=== PATIENT | female | born 1990 | race Caucasian/White ===

== ENCOUNTER 2018-08-07 11:32 | Outpatient (CLI) | payer BC ==
[2018-08-07 11:51] VITALS: BP 122/80
[2018-08-07 12:56] LABS: BILIRUBIN,URINE NEGATIVE (NEGATIVE); GLUCOSE, URINE (UA) NEGATIVE (NEGATIVE); KETONES,URINE (UA) NEGATIVE (NEGATIVE); LEUKOCYTE ESTERASE, URINE NEGATIVE (NEGATIVE); NITRITE,URINE NEGATIVE (NEGATIVE); OCCULT BLOOD,URINE NEGATIVE (NEGATIVE); PROTEIN,URINE NEGATIVE (NEGATIVE); UROBILINOGEN,URINE 0.2 (NORMAL) E.U./dL (NORMAL)
[2018-08-07 13:06] LABS: BACTERIA,URINE Few /HPF (None Seen); CLARITY,URINE CLEAR (CLEAR); RBC,URINE None Seen /HPF (0-5); SQUAMOUS EPITHELIAL CELL,UR MOD Squamous (<= Few)
== END 2018-08-07 12:40 | disposition home or self-care (01) ==
LOC: WFO 11:32 → FBP 11:34 → WFO 12:40
PROVIDERS: ATTEND Obstetrics & Gynecology
DX: O36.8130 Decreased fetal movements, third trimester, not applicable or unspecified (principal); Z3A.36 36 weeks gestation of pregnancy
CPT/HCPCS: 59025; 81001; 87086; 99212

== ENCOUNTER 2018-09-13 19:00 | Inpatient (IN) | payer BC ==
[2018-09-13 19:32] LABS: GLUCOSE, URINE (UA) NEGATIVE (NEGATIVE); KETONES,URINE (UA) 15 mg/dL (NEGATIVE); LEUKOCYTE ESTERASE, URINE NEGATIVE (NEGATIVE); NITRITE,URINE NEGATIVE (NEGATIVE); OCCULT BLOOD,URINE LARGE (NEGATIVE); PH,URINE 6.5 PH (5.0-7.5); PROTEIN,URINE NEGATIVE (NEGATIVE); UROBILINOGEN,URINE 0.2 (NORMAL) E.U./dL (NORMAL)
[2018-09-13 19:43] LABS: BILIRUBIN,URINE SMALL (NEGATIVE); CLARITY,URINE CLEAR (CLEAR); HCG UR QUAL NEGATIVE; ICTOTEST,URINE POSITIVE
[2018-09-13 19:53] LABS: BACTERIA,URINE Few /HPF (None Seen); RBC,URINE TNTC /HPF (0-5); SQUAMOUS EPITHELIAL CELL,UR MANY Squamous (<= Few)
[2018-09-13] MEDS ORDERED: LIDOCAINE VISCOUS 2% 15 ML UDC MM STA (20:33)
[2018-09-13] MEDS ORDERED: MAG HYDROX/AL HYDROX/SIMETH 30 ML UDC PO STA (20:33)
[2018-09-13] MEDS ORDERED: SUCRALFATE 1 GM/10 ML UDC PO STA (20:33)
--- NOTE | 2018-09-13 20:36 | ED Physician Documentation ---
History of Present Illness - Stated complaint Stated Complaint: ABD PX - Chief complaint Chief Complaint: Abd Pain - History obtained from History obtained from: Patient, Family - History of Present Illness Timing: How many days ago (4) Pain level max: 7 Pain level now: 5 - Additonal information Additional information: 27-year-old female is approximately 3 weeks . 4 days ago she started with epigastric and right upper quadrant abdominal pain. Worse with eating. Did not improve with Zantac and Tums. Does have a history of ulcers in the past. Has not had any blood in her stool or vomit. Has vomited x2. She is currently breast-feeding. Review of Systems Ten Systems: 10 systems reviewed and negative Constitutional: denies: Fever, Chills Nose: denies: Rhinorrhea / runny nose, Congestion Respiratory: denies: Cough GI: denies: Diarrhea : denies: Dysuria, Frequency, Hesitancy, Now EGA Skin: denies: Rash Musculoskeletal: denies: Neck pain, Back pain PD PAST MEDICAL HISTORY - Past Medical History Past Medical History: No - Past Surgical History Past Surgical History: No - Present Medications Home Medications: Ambulatory Orders Medication Instructions Recorded Confirmed Lisdexamfetamine Dimesylate 1 cap PO DAILY 09/13/18 09/13/18 [Vyvanse] raNITIdine [Zantac] 1 tab PO DAILY 09/13/18 09/13/18 - Allergies Allergies/Adverse Reactions: Allergies Allergy/AdvReac Type Severity Reaction Status Date / Time quetiapine [From Seroquel] Allergy Unknown Verified 09/13/18 19:12 - Social History Does the pt smoke?: No Smoking Status: Never smoker Does the pt drink ETOH?: No Does the pt have substance abuse?: No - Immunizations Immunizations are current?: Yes - POLST Patient has POLST: No PD ED PE NORMAL - Vitals Vital signs reviewed: Yes - General General: Alert and oriented X 3, No acute distress - HEENT HEENT: Moist mucous membranes - Neck Neck: Supple, no meningeal sign - Cardiac Cardiac: RRR - Respiratory Respiratory: Clear bilaterally - Abdomen Abdomen: Soft, Non distended, Other (Tender palpation epigastric and right upper quadrant. Equivocal Chowdhury sign) - Back Back: No CVA TTP, No spinal TTP - Derm Derm: Warm and dry - Extremities Extremities: No edema - Neuro Neuro: Alert and oriented X 3 - Psych Psych: Normal mood, Normal affect Results - Vitals Vitals: Vital Signs - 24 hr 09/13/18 09/13/18 19:09 20:38 Temperature 36.0 C L Heart Rate 84 84 Respiratory 16 16 Rate Blood Pressure 126/85 H 131/93 H O2 Saturation 98 100 Oxygen O2 Source Room air - Labs Labs: Laboratory Tests 09/13/18 09/13/18 09/13/18 19:10 20:38 20:38 WBC 9.5 RBC 4.81 Hgb 14.7 Hct 43.2 MCV 89.9 MCH 30.7 MCHC 34.1 RDW 12.6 Plt Count 297 MPV 8.1 Neut # (Auto) 6.7 H Lymph # (Auto) 1.7 [place] # (Auto) 0.8 Eos # (Auto) 0.2 Baso # (Auto) 0.1 Absolute Nucleated RBC 0.01 Nucleated RBC % 0.1 Sodium 139 Potassium 3.8 Chloride 103 Carbon Dioxide 26 Anion Gap 10.0 BUN 14 Creatinine 0.7 Estimated GFR (MDRD) 100 Glucose 100 Calcium 9.8 Total Bilirubin 2.3 H AST 347 H ALT 541 H Alkaline Phosphatase 239 H Total Protein 7.4 Albumin 4.2 Globulin 3.2 Albumin/Globulin Ratio 1.3 Lipase 2490 H Urine Color ORANGE Urine Clarity CLEAR Urine pH 6.5 Ur Specific [place] >=1.030 H Urine Protein NEGATIVE Urine Glucose (UA) NEGATIVE Urine Ketones 15 H Urine Occult Blood LARGE H Urine Nitrite NEGATIVE Urine Bilirubin SMALL H Urine Urobilinogen 0.2 (NORMAL) Ur Leukocyte Esterase NEGATIVE Urine RBC TNTC H Urine WBC 6-10 H Ur Squamous Epith Cells MANY Squamous H Urine Bacteria Few Ur Microscopic Review INDICATED Urine Culture Comments NOT INDICATED Urine HCG, Qual NEGATIVE - Rads (name of study) Right upper quadrant ultrasound Radiology: Prelim report reviewed, EMP read contemporaneously, See rad report (Cholelithiasis with gallbladder wall thickening and presence of sonographic Chowdhury sign, per technologist's notes. Correlate clinically for evidence of acute cholecystitis. 2. Common bile duct is normal caliber. 3. Probable fatty liver. ) PD MEDICAL DECISION MAKING - ED course Complexity details: reviewed results, re-evaluated patient, considered differential, d/w patient, d/w family, d/w compliance consultant ED course: 27-year-old female who appears to have pancreatitis, likely secondary to gallstones as well as acute cholecystitis. Discussed the case with Dr. Gil Juarez, surgery on-call who recommends admission to the hospitalist and he will consult. Discussed the case with Dr. Freeman, hospitalist who accepts. Patient is well-appearing, nontoxic. Pain well controlled. Patient started on Zosyn. This document was made in part using voice recognition software. While efforts are made to proofread this document, sound alike and grammatical errors may occur. Departure - Departure Disposition: 66 [facility] DC/Xfer Clinical Impression: Gallstone pancreatitis, Cholecystitis Condition: Good Discharge Date/Time: 09/13/18 23:35
[2018-09-13 20:42] LABS: BASOPHILS # (AUTO) 0.1 10^3/uL (0.0-0.1); BASOPHILS % (AUTO) 0.5 %; EOSINOPHILS # (AUTO) 0.2 10^3/uL (0.0-0.7); EOSINOPHILS % (AUTO) 1.9 %; HGB - HEMOGLOBIN 14.7 g/dL (12.0-16.0); LYMPHOCYTES # (AUTO) 1.7 10^3/uL (1.5-3.5); LYMPHOCYTES % (AUTO) 18.3 %; MEAN CORPUSCULAR HEMOGLOBIN 30.7 pg (27.0-31.0); MEAN CORPUSCULAR HGB CONC 34.1 g/dL (32.0-36.0); MEAN CORPUSCULAR VOLUME 89.9 fL (81.0-99.0); MEAN PLATELET VOLUME 8.1 fL (7.9-10.8); MONOCYTES # (AUTO) 0.8 10^3/uL (0.0-1.0); MONOCYTES % (AUTO) 8.7 %; NEUTROPHILS # (AUTO) 6.7 10^3/uL (1.5-6.6); NEUTROPHILS % (AUTO) 70.6 %; PLT - PLATELET COUNT 297 10^3/uL (130-450); RED BLOOD COUNT 4.81 10^6/uL (4.20-5.40); RED CELL DISTRIBUTION WIDTH 12.6 % (12.0-15.0); WHITE BLOOD COUNT 9.5 x10^3/uL (4.8-10.8)
[2018-09-13 21:01] LABS: ALBUMIN 4.2 g/dL (3.2-5.5); ALBUMIN/GLOBULIN RATIO 1.3 (1.0-2.2); BILIRUBIN,TOTAL 2.3 mg/dL (0.2-1.0); CALCIUM 9.8 mg/dL (8.5-10.3); CREATININE 0.7 mg/dL (0.4-1.0); TOTAL PROTEIN 7.4 g/dL (6.7-8.2)
--- NOTE | 2018-09-13 21:32 | Ultrasound Report ---
Reason: RUQ abd pain Procedure Date: 09/13/2018 Accession Number: [id number] / [id number] Procedure: US - Abdomen Limited CPT Code: FULL RESULT: EXAM: ABDOMEN ULTRASOUND LIMITED, RUQ EXAM DATE: 09/13/2018 09:16 PM. CLINICAL HISTORY: RUQ abd pain. COMPARISON: None. TECHNIQUE: Real-time scanning was performed with static images obtained. FINDINGS: Liver: Normal echotexture.Mildly inhomogeneous, increased echogenicity, suggesting diffuse fatty infiltration. Liver measures 14.9 cm craniocaudally. Main portal vein flow: Hepatopetal. Gallbladder: Mild to moderate gallbladder wall thickening.Multiple small gallstones are present.Sonographic Chowdhury sign is present, per technologist's notes. Biliary System: Common bile duct measures 3.8 mm. No intrahepatic ductal dilatation. Pancreas: Visualized portion is unremarkable. Right Kidney: 10.1 cm longitudinally. Normal echotexture.No hydronephrosis.No contour-deforming mass.No calculus. Other: IMPRESSION: 1. Cholelithiasis with gallbladder wall thickening and presence of sonographic Chowdhury sign, per technologist's notes. Correlate clinically for evidence of acute cholecystitis. 2. Common bile duct is normal caliber. 3. Probable fatty liver. RAD[facility]
[2018-09-13] MEDS ORDERED: HYDROmorphone 1 MG/ML CARPUJECT IVP STA (21:59)
[2018-09-13] MEDS ORDERED: SODIUM CHLORIDE 0.9% 1,000 ML IV ONE (21:59)
[2018-09-13] MEDS ORDERED: PIPERACILLIN/TAZOBACTAM 3.375 GM in SODIUM CHLORIDE 0.9% MINIBAG 100 ML IV STA (22:00)
[2018-09-13] MEDS ORDERED: ONDANSETRON 4 MG/2 ML VIAL IVP PRN (22:43)
[2018-09-13] MEDS ORDERED: ACETAMINOPHEN 325 MG TABLET PO PRN (22:43)
[2018-09-13] MEDS ORDERED: MORPHINE 2 MG/ML CARPUJECT IVP PRN (22:43)
[2018-09-13] MEDS: ONDANSETRON 4 MG/2 ML VIAL IVP STA (22:56)
[2018-09-13] MEDS ORDERED: LACTATED RINGERS 1,000 ML IV SCH (23:00)
[2018-09-13] MEDS ORDERED: SODIUM CHLORIDE 0.9% 500 ML IV ONE (23:21)
[2018-09-14] MEDS: NS W/20 MEQ KCL 1,000 ML IV SCH ×2 (00:23→08:43)
[2018-09-14] MEDS: SODIUM CHLORIDE FLUSH 0.9% 10 ML SYRINGE IVP SCH ×3 (00:26→18:32)
--- NOTE | 2018-09-14 01:37 | HISTORY & PHYSICAL EXAMINATION ---
DATE OF SERVICE: 09/13/2018 Physician: Delma Freeman MD CHIEF COMPLAINT: Abdominal pain. HISTORY OF PRESENT ILLNESS: Patient is a pleasant 27-year-old white female with past medical history of gastric ulcer and mental health disorder who is three weeks . 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 She had an induced delivery, but no further complication and she had a vaginal delivery, a healthy baby. She reports that her ADHD is under control. She sees a counselor and she takes Vyvanse. Regarding the circumstances leading to hospital admission, she describes eating a large hamburger about four days ago, after which she developed a heartburn- like feeling. Subsequently, she became nauseous and vomited. She had intense abdominal pain. The pain was epigastric and radiated to her back and also radiated up to her throat with acidic taste and heartburn-like sensation. During the past several days, pain was on and off, mostly associated with food intake. She also had postprandial nausea and vomited a few times. On the night of admission, her pain became intense and 10/10 in intensity and that brought her to the ER seeking evaluation. Regarding bowel movements, she had been constipated throughout her ; however, she takes laxatives and has reasonably regular bowel movements. Last bowel movement was earlier today. PAST MEDICAL HISTORY 1. Gastric ulcer at age 17, at which time patient had upper GI endoscopy. Subsequently, she took antacids. Even recently she has been taking Zantac. She does not know further details about the ulcer, such as an etiology. She reports not taking NSAIDs in larger quantities. 2. Attention deficit hyperactivity disorder. 3. Bipolar disorder. 4. Gastroesophageal reflux. OUTPATIENT MEDICATIONS: Included Vyvanse and Zantac. SOCIAL HISTORY: The patient used to smoke, but she quit when she got , same with alcohol. She used to drink occasionally, but has not had any alcoholic drink since she got . FAMILY HISTORY: Positive for gallstone disease in grandmother. Mother had hypertension. CODE STATUS: FULL CODE. REVIEW OF SYMPTOMS: I completed 12-system review. The pertinent positives are listed above at history of present illness. The patient did not report additional complaints on the 12-system review. In particular, she did not report headache, lower extremity swelling. She denied fever. All other systems were negative. EMERGENCY ROOM WORKUP: Laboratory showed normal white blood cell count, normal platelet count and normal hemoglobin. Electrolytes included sodium 139, potassium 3.8, normal creatinine at 0.7. Liver function tests abnormal with total bilirubin 2.3, AST 347, ALT 541, alkaline phosphatase 239. Calcium was normal at 9.8. Lipase was 2490. Urinalysis appeared contaminated. Ultrasound of the abdomen showed numerous small gallstones in the gallbladder and image consistent with cholecystitis. The common bile duct was described as normal. Fatty liver was also seen. Sonographic Chowdhury's sign was present. PHYSICAL EXAMINATION VITAL SIGNS: Temperature 36 Celsius, heart rate between 70 and 80, blood pressure 126/85, respiratory rate 16, oxygen saturation 100% on room air. GENERAL: The patient is a well-developed young female, who is not in distress. ABDOMEN: Bowel tones hypoactive. Abdomen is distended with epigastric and right upper quadrant tenderness. No guarding, no rebound. CARDIOVASCULAR: S1, S2. Regular. No pathologic murmur. RESPIRATORY: Clear to auscultation bilaterally without wheezes, rales or crackles. LYMPHATIC: No lymphedema. MUSCULOSKELETAL: Atraumatic. NEUROLOGIC: Alert, oriented and nonfocal. PSYCHIATRIC: Cooperative. SKIN: No jaundice, no rash. ASSESSMENT AND PLAN: Patient is a pleasant 27-year-old female who is getting admitted with acute cholecystitis and gallstone pancreatitis. It is most likely that she passed a gallstone. At the same time, having gallstone pancreatitis, it would be reasonable to further evaluate with MRCP. On admission, the patient is hemodynamically stable. She does have significantly abnormal LFTs and elevated lipase, which is consistent with ultrasound finding of gallstone disease. Additional issue is that the patient has history of ADHD and bipolar disorder. She had been taking Vyvanse. She reports no decompensation, sees a counselor and feels that mental health issues are under control. Additional issue is history of gastric ulcer and gastroesophageal reflux. For that, the patient was on Zantac. could make reflux disease worse and she would have risk for ulcer as well. PLAN AND ORDERS 1. Patient is getting admitted as inpatient. The ER physician, Dr. Galloway, consulted the surgeon, Dr. Gil Juarez. We are awaiting surgical evaluation. The patient most likely will have cholecystectomy. 2. Overnight the patient will receive IV fluids, Zosyn and supportive care. Medications which are ordered would not interfere with . 3. For deep venous thrombosis prophylaxis, we will use Venodyne boots. 4. For the morning, I ordered an MRCP to make sure that there is no gallstone in the common bile duct. We will repeat lipase and liver function tests in the morning. 5. We will start Protonix, which also will not interfere with . 6. We will continue outpatient medications for ADHD/bipolar disorder. 7. FULL CODE. Time spent in the care of this patient was 50 minutes. Attestation: I certify that the reasonable expectation for this patient to remain hospitalized for at least 48 hrs however to discharge or transfer to another facility within 96 hrs. TD: 09/13/2018 23:48 SAMUEL
[2018-09-14] MEDS: PIPERACILLIN/TAZOBACTAM 3.375 GM in SODIUM CHLORIDE 0.9% MINIBAG 100 ML IV SCH ×2 (04:23→09:02)
[2018-09-14 05:38] LABS: ALBUMIN 3.7 g/dL (3.2-5.5); ALBUMIN/GLOBULIN RATIO 1.2 (1.0-2.2); CALCIUM 8.4 mg/dL (8.5-10.3); CREATININE 0.7 mg/dL (0.4-1.0); TOTAL PROTEIN 6.8 g/dL (6.7-8.2)
[2018-09-14] MEDS: SODIUM CHLORIDE FLUSH 0.9% 10 ML SYRINGE IVP PRN (06:24)
[2018-09-14] MEDS: PANTOPRAZOLE 40 MG VIAL IVP SCH (06:24)
[2018-09-14 08:25] LABS: BASOPHILS # (AUTO) 0.1 10^3/uL (0.0-0.1); EOSINOPHILS # (AUTO) 0.2 10^3/uL (0.0-0.7); EOSINOPHILS % (AUTO) 3.7 %; HGB - HEMOGLOBIN 13.8 g/dL (12.0-16.0); LYMPHOCYTES # (AUTO) 1.7 10^3/uL (1.5-3.5); LYMPHOCYTES % (AUTO) 29.2 %; MEAN CORPUSCULAR HEMOGLOBIN 30.2 pg (27.0-31.0); MEAN CORPUSCULAR HGB CONC 34.3 g/dL (32.0-36.0); MEAN CORPUSCULAR VOLUME 88.1 fL (81.0-99.0); MEAN PLATELET VOLUME 7.7 fL (7.9-10.8); MONOCYTES # (AUTO) 0.6 10^3/uL (0.0-1.0); MONOCYTES % (AUTO) 9.9 %; NEUTROPHILS # (AUTO) 3.3 10^3/uL (1.5-6.6); NEUTROPHILS % (AUTO) 56.2 %; PLT - PLATELET COUNT 261 10^3/uL (130-450); RED BLOOD COUNT 4.56 10^6/uL (4.20-5.40); RED CELL DISTRIBUTION WIDTH 12.6 % (12.0-15.0); WHITE BLOOD COUNT 5.9 x10^3/uL (4.8-10.8)
[2018-09-14] MEDS: POLYETHYLENE GLYCOL 3350 17 GM PACKET PO SCH (08:43)
[2018-09-14] MEDS: LISDEXAMFETAMINE DIMESYLATE 50 MG PO SCH (09:02)
--- NOTE | 2018-09-14 09:41 | CONSULTATION NOTE ---
Referring Provider Name of Referring Provider:: Dr. Freeman Consult Date: 09/14/18 Chief Complaint - Chief Complaint Chief Complaint: abd pain History of Present Illness - Admitted From Admitted From:: ER - History Obtained From Records Reviewed: yes History obtained from: pt, records Exam Limitations: none - History of Present Illness HPI Comment/Other: 27 yo female who is 3 weeks from uncomplicated with 4 day hx of an intermittent pressure type of epigastric pain radiating into the back, with nausea and vomiting, without fever/chills, but with dark orange colored urine, prompting ER evaluation last night and admission. No change in bowel habits, jaundice or acholic stools. Had somewhat similar sx as a teen when a gastric ulcer was diagnosed. Denies Fh gallbladder disease. No hx food intolerance, but she has noted occasional heartburn worsened the past several days, for which she takes prn ranitidine. No dysphagia, melena, BRBPR. Has had expected wt changes associated with , labor and delivery. She reports that the pain was 10/10 last night at admission but has almost completely resolved now. Evaluation in the ER included marked elevation of lipase (over 2,000), abnormal LFT's, with bili over 2 and transaminases in the hundreds, and an abd US showing 6 mm gallbladder wall thickness, nl bile ducts, multiple small stones in the gallbladder, sonographic + Chowdhury's sign. History - Past Medical History Respiratory: reports: None Neuro: reports: None Endocrine/Autoimmune: reports: None GI: reports: Ulcers (as a teen) Psych: reports: Anxiety, Bipolar disorder, ADD/ADHD MRSA Hx?: No - Family & Social History Family History Comment/Other: neg for gallbladder disease Living arrangement: At home Living Situation: With family - Substance History Use: Uses substance without health or social issues: NONE - POLST Patient has POLST: No Meds/Allgy - Home Medications Home Medications: Ambulatory Orders Medication Instructions Recorded Confirmed Lisdexamfetamine Dimesylate 1 cap PO DAILY 09/13/18 09/13/18 [Vyvanse] raNITIdine [Zantac] 1 tab PO DAILY 09/13/18 09/13/18 Vitamin [Trinatal Rx 1] 1 tab PO DAILY 09/14/18 09/14/18 - Allergies Allergies/Adverse Reactions: Allergies Allergy/AdvReac Type Severity Reaction Status Date / Time quetiapine [From Seroquel] Allergy Unknown Verified 09/13/18 19:12 Review of Systems - Constitutional Constitutional: denies: Fever, Chills - Gastrointestinal Gastrointestinal: reports: Abdominal pain, Nausea, Vomiting, Reflux/heartburn. denies: Diarrhea, Change in bowel habits, Rectal bleeding, Black stools, Bloody stools, Sam blood emesis, Coffee grounds emesis - Genitourinary Genitourinary: denies: Dysuria - Psychiatric Psychiatric: reports: Other (ADHD) - Hematologic/Lymphatic Hematologic/Lymphatic: denies: Anemia, Blood clots, Bleeding tendencies - All Other Systems All Other Systems: reports: Reviewed and negative Exam - Vital Signs Reviewed Vital Signs: Yes Vital Signs: Vital Signs x48h Temp Pulse Resp BP Pulse Ox 09/14/18 07:42 36.4 C L 81 16 120/70 97 - Physical Exam General Appearance: positive: Alert, Mild distress Eyes Bilateral: positive: Conjunctivae nml, No scleral icterus ENT: positive: ENT inspection nml, Pharynx nml, No signs of dehydration Neck: positive: Nml inspection, No JVD, Trachea midline. negative: Thyromegaly, Lymphadenopathy (R), Lymphadenopathy (L) Respiratory: positive: Chest non-tender, No respiratory distress, Breath sounds nml. negative: Wheezes, Rales, Rhonchi Cardiovascular: positive: Regular rate & rhythm, No murmur, No gallop Abdomen: positive: No organomegaly, Nml bowel sounds, No distention, Tenderness (mild tenderness to deep palpation in RUQ; neg Chowdhury's sign). negative: Guarding, Rebound, Hepatomegaly, Splenomegaly, Mass Extremities: positive: Non-tender, No pedal edema. negative: Calf tenderness Neurologic/Psychiatric: positive: Oriented x3 Conclusion/Plan - Diagnosis Diagnosis: Biliary pancreatitis, clinically resolving. Mild subacute calculous cholecystitis, also clinically resolving. Abn lft's, due to common duct stone, unclear if stone has passed at this time. - Plan Plan: Agree with admission, bowel rest, IVF, serial labs, MRCP for further evaluation of bile ducts and pancreas. If there is evidence of common duct stones, ERCP may be indicated prior to cholecystectomy to clear the duct. Ideally Lap natasha should be performed this admission to prevent recurrent episodes. Will follow. thanks, - Lab Results Fish Bones: 09/14/18 08:17 09/14/18 04:45 Other Lab Results: Lipase 2500 yest, 500 today LFT's: Bili 2.3 yest, 2.0 this am transaminases 300s last night; 500s this am - Diagnostic Imaging Results Diagnostic Imaging Results: positive: Final report reviewed, Read independently Diagnostic Imaging Results Comments: See HPI
--- NOTE | 2018-09-14 11:39 | MRI Report ---
Reason: gall stone pancreatitis Procedure Date: 09/14/2018 Accession Number: [id number] / [id number] Procedure: MRI - MRCP W/O CPT Code: FULL RESULT: EXAM: MR ABDOMEN WITHOUT CONTRAST (MR CHOLANGIOPANCREATOGRAPHY) EXAM DATE: 09/14/2018 10:54 AM. CLINICAL HISTORY: Gallstone, pancreatitis. COMPARISON: ABDOMEN LIMITED 09/13/2018 8:44 PM. TECHNIQUE: Multiplanar breath-hold T1 and T2 sequences obtained through the abdomen on an MR scanner. Dedicated 2D and 3D MRCP sequences obtained through the biliary and pancreatic ducts. No intravenous contrast given. FINDINGS: Lung Bases: The lung bases are clear. Liver: The liver has normal size, morphology and signal. No evidence of mass. The intrahepatic bile ducts appear normal. CBD: The extrahepatic ducts appear normal. The CBD is 3 mm in diameter. Gallbladder: The gallbladder is partially distended and appears normal with no wall thickening or stone. Pancreas: The pancreas appears essentially normal with no significant peripancreatic edema. No mass is seen. The pancreatic duct measures up to 2 mm in diameter and appears normal with no stone or stricture. Spleen: The spleen appears normal. Kidneys and Adrenals: The kidneys appear normal with no mass or hydronephrosis. There are no cysts in the kidneys. The adrenals appear normal. Bowel: The small bowel and colon appear normal with no inflammation or obstruction. Retroperitoneum: The retroperitoneal structures appear normal with no mass or lymphadenopathy. IMPRESSION: Mild gallbladder wall edema with two 3 mm stones impacted in the cystic duct relatively proximal to the common bile duct. The gallbladder wall mucosal lining appears intact and there is no evidence of pericholecystic abscess. [facility] CRITICAL RESULT: The findings were discussed with Dr. Juarez on 09/14/2018 at 11:35 AM.
[2018-09-14] MEDS ORDERED: BUPIVACAINE 0.5%-EPI 1:200000 PF 30 ML VIAL ONE (12:27)
--- NOTE | 2018-09-14 14:04 | ANESTHESIA ---
Pre-Anesthesia VS, & Labs - NPO >8 hours, Other (sips of clears around noon) - Is Patient ?: No - Lab Results Fish Bones: 09/14/18 08:17 09/14/18 04:45 <Vannesa Luke - Last Filed: 09/14/18 14:24> - Lab Results Fish Bones: 09/14/18 08:17 09/14/18 04:45 <Jocelyn Rivers - Last Filed: 09/14/18 15:27> - Diagnosis Diagnosis Biliary pancreatitis, clinically resolving. Mild subacute calculous cholecystitis, also clinically resolving. Abn lft's, due to common duct stone, unclear if stone has passed at this time. - Procedure laparoscopic cholecystectomy (Vannesa Luke) laparoscopic cholecystectomy (Jocelyn Rivers) Vital Signs: Temp Pulse Resp BP Pulse Ox 36.4 C L 81 16 120/70 97 09/14/18 07:42 09/14/18 07:42 09/14/18 07:42 09/14/18 07:42 09/14/18 07:42 Height 5 ft 2 in Weight (kg) 81.193 kg Body Mass Index 32.0 - Lab Results Current Lab Results: Laboratory Tests 09/14/18 08:17: WBC 5.9, RBC 4.56, Hgb 13.8, Hct 40.2, MCV 88.1, MCH 30.2, MCHC 34.3, RDW 12.6, Plt Count 261, MPV 7.7 L, Neut # (Auto) 3.3, Lymph # (Auto) 1.7, Saline # (Auto) 0.6, Eos # (Auto) 0.2, Baso # (Auto) 0.1, Absolute Nucleated RBC 0 .00, Nucleated RBC % 0.0 09/14/18 04:45: Sodium 137, Potassium 4.1, Chloride 106, Carbon Dioxide 25, Anion Gap 6.0, BUN 13, Creatinine 0.7, Estimated GFR (MDRD) 100, Glucose 90, Calcium 8.4 L, Total Bilirubin 2.0 H, AST 679 H, ALT 761 H, Alkaline Phosphatase 269 H, Total Protein 6.8, Albumin 3.7, Globulin 3.1, Albumin/Globulin Ratio 1.2, Lipase 506 H 09/13/18 20:38: Sodium 139, Potassium 3.8, Chloride 103, Carbon Dioxide 26, Anion Gap 10.0, BUN 14, Creatinine 0.7, Estimated GFR (MDRD) 100, Glucose 100, Calcium 9.8, Total Bilirubin 2.3 H, AST 347 H, ALT 541 H, Alkaline Phosphatase 239 H, Total Protein 7.4, Albumin 4.2, Globulin 3.2, Albumin/Globulin Ratio 1.3, Lipase 2490 H 09/13/18 20:38: WBC 9.5, RBC 4.81, Hgb 14.7, Hct 43.2, MCV 89.9, MCH 30.7, MCHC 34.1, RDW 12.6, Plt Count 297, MPV 8.1, Neut # (Auto) 6.7 H, Lymph # (Auto) 1.7, Saline # (Auto) 0.8, Eos # (Auto) 0.2, Baso # (Auto) 0.1, Absolute Nucleated RBC 0.01, Nucleated RBC % 0.1 Home Medications and Allergies <Vannesa Luke - Last Filed: 09/14/18 14:24> <Jocelyn Rivers - Last Filed: 09/14/18 15:27> Home Medications: Ambulatory Orders Lisdexamfetamine Dimesylate [Vyvanse] 50 mg PO DAILY 09/13/18 raNITIdine [Zantac] 150 mg PO DAILY 09/13/18 Vitamin [Trinatal Rx 1] 1 tab PO DAILY 09/14/18 Active Medications Acetaminophen (Tylenol) 650 mg PO Q4HR PRN PRN Reason: Pain 1 to 4 Last Admin: 09/14/18 11:19 Dose: 650 mg Piperacillin Sod/Tazobactam (Sod 3.375 gm/ Sodium Chloride) 100 mls @ 200 mls/hr IV Q6H [facility] Last Infusion: 09/14/18 09:47 Dose: Infused Potassium Chloride/Sodium Chloride (Normal Saline 0.9% W/20 Meq Kcl) 1,000 mls @ 125 mls/hr IV .Q8H [facility] Last Infusion: 09/14/18 15:05 Dose: 0 mls/hr Morphine Sulfate (Morphine (Carpuject)) 4 mg IVP Q2HR PRN PRN Reason: Pain 8 to 10 Ondansetron HCl (Zofran Inj) 4 mg IVP Q6HR PRN PRN Reason: Nausea / Vomiting Last Admin: 09/14/18 04:39 Dose: 4 mg Pantoprazole Sodium (Protonix) 40 mg IVP QDAC [facility] Last Admin: 09/14/18 06:24 Dose: 40 mg Lisdexamfetamine Dimesylate [Vyvanse] 50 Mg Cap 1 each PO DAILY [facility] Last Admin: 09/14/18 09:02 Dose: 1 each Polyethylene Glycol (Miralax) 17 gm PO DAILY [facility] Last Admin: 09/14/18 08:43 Dose: Not Given Sodium Chloride (Normal Saline Flush 0.9%) 10 ml IVP PRN PRN PRN Reason: NEEDED PER PROVIDER ORDERS Last Admin: 09/14/18 06:24 Dose: 10 ml Sodium Chloride (Normal Saline Flush 0.9%) 10 ml IVP 0100,0900,1700 [facility] Last Admin: 09/14/18 08:43 Dose: Not Given Lisdexamfetamine Dimesylate [Vyvanse] 50 mg PO DAILY 09/13/18 raNITIdine [Zantac] 150 mg PO DAILY 09/13/18 Vitamin [Trinatal Rx 1] 1 tab PO DAILY 09/14/18 Allergies/Adverse Reactions: Allergies Allergy/AdvReac Type Severity Reaction Status Date / Time quetiapine [From Seroquel] Allergy Unknown Verified 09/13/18 19:12 Anes History & Medical History - Anesthetic History Anesthesia Complications: reports: No previous complications - Medical History Pulmonary: reports: None Gastrointestinal: reports: Ulcers (as a teen) Neuro: reports: None Endocrine/Autoimmune: reports: None Smoking Status: Never smoker <Vannesa Luke - Last Filed: 09/14/18 14:24> Exam General: Alert Mouth Opening: Greater than 4 Fingerbreadths Mallampati classification: II Thyromental Distance: greater than 6 cm Respiratory: Lungs clear Cardiovascular: Regular rate Mental/Cognitive Status: Alert/Oriented X3 <Vannesa Luke Last Filed: 09/14/18 14:24> Dental: Poor dentition <Jocelyn Rivers - Last Filed: 09/14/18 15:27> Plan Anesthesia Type: General ASA classification: 2-Mild systemic disease Is this case an emergency?: Yes <Vannesa Luke Last Filed: 09/14/18 14:24> Consent for Procedure(s) Verified and Reviewed: Yes Code Status: Attempt Resuscitation <Jocelyn Rivers - Last Filed: 09/14/18 15:27>
--- NOTE | 2018-09-14 14:09 | PROVIDER PROGRESS NOTE ---
Subjective - Prog Note Date Prog Note Date: 09/14/18 - Subjective Pt reports feeling: Improved Subjective: pt report her abdominal is good controlled. pt denies nausea, vomiting. pt denies fever, chill, chest pain. Pt will have MRCP. pt has surgeon consult. Current Medications - Current Medications Current Medications: Active Medications Acetaminophen (Tylenol) 650 mg PO Q4HR PRN PRN Reason: Pain 1 to 4 Last Admin: 09/14/18 11:19 Dose: 650 mg Piperacillin Sod/Tazobactam (Sod 3.375 gm/ Sodium Chloride) 100 mls @ 200 mls/hr IV Q6H [facility] Last Infusion: 09/14/18 09:47 Dose: Infused Potassium Chloride/Sodium Chloride (Normal Saline 0.9% W/20 Meq Kcl) 1,000 mls @ 125 mls/hr IV .Q8H [facility] Last Infusion: 09/14/18 11:00 Dose: 125 mls/hr Morphine Sulfate (Morphine (Carpuject)) 4 mg IVP Q2HR PRN PRN Reason: Pain 8 to 10 Ondansetron HCl (Zofran Inj) 4 mg IVP Q6HR PRN PRN Reason: Nausea / Vomiting Last Admin: 09/14/18 04:39 Dose: 4 mg Pantoprazole Sodium (Protonix) 40 mg IVP QDAC [facility] Last Admin: 09/14/18 06:24 Dose: 40 mg Lisdexamfetamine Dimesylate [Vyvanse] 50 Mg Cap 1 each PO DAILY [facility] Last Admin: 09/14/18 09:02 Dose: 1 each Polyethylene Glycol (Miralax) 17 gm PO DAILY [facility] Last Admin: 09/14/18 08:43 Dose: Not Given Sodium Chloride (Normal Saline Flush 0.9%) 10 ml IVP PRN PRN PRN Reason: NEEDED PER PROVIDER ORDERS Last Admin: 09/14/18 06:24 Dose: 10 ml Sodium Chloride (Normal Saline Flush 0.9%) 10 ml IVP 0100,0900,1700 [facility] Last Admin: 09/14/18 08:43 Dose: Not Given Lisdexamfetamine Dimesylate [Vyvanse] 50 mg PO DAILY 09/13/18 raNITIdine [Zantac] 150 mg PO DAILY 09/13/18 Vitamin [Trinatal Rx 1] 1 tab PO DAILY 09/14/18 Objective - Vital Signs/Intake & Output Reviewed Vital Signs: Yes Vital Signs: Vital Signs x48h Temp Pulse Resp BP Pulse Ox 09/14/18 07:42 36.4 C L 81 16 120/70 97 Intake & Output: Intake & Output 09/11/18 09/12/18 09/13/18 09/14/18 23:59 23:59 23:59 23:59 Intake Total 290 8.750 Balance 290 8.750 - Objective General Appearance: positive: No acute distress, Alert. negative: Lethargic Eyes Bilateral: positive: Normal inspection, PERRL, No lid inflammation, Conjunctivae nml ENT: positive: ENT inspection nml, Pharynx nml, No signs of dehydration. negative: Purulent nasal drainage, Pharyngeal erythema, Oral lesions Neck: positive: Nml inspection, Thyroid nml, No JVD, Trachea midline. negative: Thyromegaly, Lymphadenopathy (R), Stiff neck, Swelling/bruising, Tracheal deviation Respiratory: positive: Chest non-tender, No respiratory distress, Breath sounds nml. negative: Wheezes, Rales, Rhonchi Cardiovascular: positive: Regular rate & rhythm, No murmur, No gallop. negative: Irregularly irregular, Extrasystoles, Tachycardia, Bradycardia, JVD present, Systolic murmur, Diastolic murmur Peripheral Pulses: 2+ Radial (R), 2+ Radial (L), 2+ Dorsalis pedis (R), 2+ Dorsalis pedis (L) Abdomen: positive: No organomegaly, No distention, Tenderness. negative: Non- tender, Guarding, Rebound Back: positive: Nml inspection. negative: CVA tenderness (R), CVA tenderness (L) Skin: positive: Color nml, No rash, Warm, Dry. negative: Cyanosis, Diaphoresis, Pallor Extremities: positive: Non-tender, Full ROM, Nml appearance. negative: Calf tenderness, Joint swelling, Rosales's sign/cords Neurologic/Psychiatric: positive: Oriented x3, Motor nml, Sensation nml, Mood/affect nml. negative: Weakness, Sensory loss, Facial droop, Slurred/abnml speech, Depressed mood/affect - Lab Results Fish Bones: 09/14/18 08:17 09/14/18 04:45 Other Labs: Lab Results x24hrs 09/14/18 09/14/18 09/13/18 Range/Units 08:17 04:45 20:38 WBC 5.9 (4.8-10.8) x10^3/uL RBC 4.56 (4.20-5.40) 10^6/uL Hgb 13.8 (12.0-16.0) g/dL Hct 40.2 (37.0-47.0) % MCV 88.1 (81.0-99.0) fL MCH 30.2 (27.0-31.0) pg MCHC 34.3 (32.0-36.0) g/dL RDW 12.6 (12.0-15.0) % Plt Count 261 (130-450) 10^3/uL MPV 7.7 L (7.9-10.8) fL Neut # (Auto) 3.3 (1.5-6.6) 10^3/uL Lymph # (Auto) 1.7 (1.5-3.5) 10^3/uL [place] # (Auto) 0.6 (0.0-1.0) 10^3/uL Eos # (Auto) 0.2 (0.0-0.7) 10^3/uL Baso # (Auto) 0.1 (0.0-0.1) 10^3/uL Absolute Nucleated RBC 0.00 x10^3/uL Nucleated RBC % 0.0 /100WBC Sodium 137 139 (135-145) mmol/L Potassium 4.1 3.8 (3.5-5.0) mmol/L Chloride 106 103 (101-111) mmol/L Carbon Dioxide 25 26 (21-32) mmol/L Anion Gap 6.0 10.0 (6-13) BUN 13 14 (6-20) mg/dL Creatinine 0.7 0.7 (0.4-1.0) mg/dL Estimated GFR (MDRD) 100 100 (>89) Glucose 90 100 (70-100) mg/dL Calcium 8.4 L 9.8 (8.5-10.3) mg/dL Total Bilirubin 2.0 H 2.3 H (0.2-1.0) mg/dL AST 679 H 347 H (10-42) IU/L ALT 761 H 541 H (10-60) IU/L Alkaline Phosphatase 269 H 239 H (42-121) IU/L Total Protein 6.8 7.4 (6.7-8.2) g/dL Albumin 3.7 4.2 (3.2-5.5) g/dL Globulin 3.1 3.2 (2.1-4.2) g/dL Albumin/Globulin Ratio 1.2 1.3 (1.0-2.2) Lipase 506 H 2490 H (22-51) U/L Urine Color Urine Clarity (CLEAR) Urine pH (5.0-7.5) PH Ur Specific [place] (1.002-1.030) Urine Protein (NEGATIVE) mg/dL Urine Glucose (UA) (NEGATIVE) mg/dL Urine Ketones (NEGATIVE) mg/dL Urine Occult Blood (NEGATIVE) Urine Nitrite (NEGATIVE) Urine Bilirubin (NEGATIVE) Urine Urobilinogen (NORMAL) E.U./dL Ur Leukocyte Esterase (NEGATIVE) Urine RBC (0-5) /HPF Urine WBC (0-5) /HPF Ur Squamous Epith Cells (<= Few) Urine Bacteria (None Seen) /HPF Ur Microscopic Review Urine Culture Comments Urine HCG, Qual 09/13/18 09/13/18 Range/Units 20:38 19:10 WBC 9.5 (4.8-10.8) x10^3/uL RBC 4.81 (4.20-5.40) 10^6/uL Hgb 14.7 (12.0-16.0) g/dL Hct 43.2 (37.0-47.0) % MCV 89.9 (81.0-99.0) fL MCH 30.7 (27.0-31.0) pg MCHC 34.1 (32.0-36.0) g/dL RDW 12.6 (12.0-15.0) % Plt Count 297 (130-450) 10^3/uL MPV 8.1 (7.9-10.8) fL Neut # (Auto) 6.7 H (1.5-6.6) 10^3/uL Lymph # (Auto) 1.7 (1.5-3.5) 10^3/uL [place] # (Auto) 0.8 (0.0-1.0) 10^3/uL Eos # (Auto) 0.2 (0.0-0.7) 10^3/uL Baso # (Auto) 0.1 (0.0-0.1) 10^3/uL Absolute Nucleated RBC 0.01 x10^3/uL Nucleated RBC % 0.1 /100WBC Sodium (135-145) mmol/L Potassium (3.5-5.0) mmol/L Chloride (101-111) mmol/L Carbon Dioxide (21-32) mmol/L Anion Gap (6-13) BUN (6-20) mg/dL Creatinine (0.4-1.0) mg/dL Estimated GFR (MDRD) (>89) Glucose (70-100) mg/dL Calcium (8.5-10.3) mg/dL Total Bilirubin (0.2-1.0) mg/dL AST (10-42) IU/L ALT (10-60) IU/L Alkaline Phosphatase (42-121) IU/L Total Protein (6.7-8.2) g/dL Albumin (3.2-5.5) g/dL Globulin (2.1-4.2) g/dL Albumin/Globulin Ratio (1.0-2.2) Lipase (22-51) U/L Urine Color ORANGE Urine Clarity CLEAR (CLEAR) Urine pH 6.5 (5.0-7.5) PH Ur Specific [place] >=1.030 H (1.002-1.030) Urine Protein NEGATIVE (NEGATIVE) mg/dL Urine Glucose (UA) NEGATIVE (NEGATIVE) mg/dL Urine Ketones 15 H (NEGATIVE) mg/dL Urine Occult Blood LARGE H (NEGATIVE) Urine Nitrite NEGATIVE (NEGATIVE) Urine Bilirubin SMALL H (NEGATIVE) Urine Urobilinogen 0.2 (NORMAL) (NORMAL) E.U./dL Ur Leukocyte Esterase NEGATIVE (NEGATIVE) Urine RBC TNTC H (0-5) /HPF Urine WBC 6-10 H (0-5) /HPF Ur Squamous Epith Cells MANY Squamous H (<= Few) Urine Bacteria Few (None Seen) /HPF Ur Microscopic Review INDICATED Urine Culture Comments NOT INDICATED Urine HCG, Qual NEGATIVE ABX Reporting Has patient been on IV antibiotics over the past 48 hours?: Yes Sepsis Event Note (H) - Evaluation Current Stage of Sepsis: Ruled out Assessment/Plan - Problem List (1) Gallstone pancreatitis Impression: improved after treatment. Lipase is 500 now from 2500 on last night, pt's pain is better controlled pt will have MRCP, followup pain control bowel rest IVF of NS (2) Cholecystitis Impression: surgeon consult, will follow up continue antibiotics, Zosyn pain control followup MRCP IVF of NS bowel rest (3) Hx of gastric ulcer Impression: continue Protonix IV (4) ADHD (attention deficit hyperactivity disorder) Impression: pt has hx of ADHD, pt took Vyvanse to control her symptoms. but pt has also breast-feeding for her infant, pharmacy will call her medication provider to make sure if safe for breast-feeding. discuss with pt for limited opiates medication usage, because of breast feeding.
--- NOTE | 2018-09-14 15:19 | PROVIDER PROGRESS NOTE ---
Assessment/Plan - Problem List (1) Cholecystitis Assessment/Plan: clinically subacute; plan: lap natasha today. PAR conference with pt, including risks of bleeding, infection, bile duct injury, poss need for postop ERCP for retained CBD stones, and consent obtained. Will schedule for later today. (2) Gallstone pancreatitis Assessment/Plan: clinically improving; given MRCP findings of small stones in cystic duct and none in CBD, with minimal edema of pancreas at present, I have recommended proceeding with lap natasha KRYSTA in attempt to prevent recurrent pancreatiti s/choledocholithiasis. Discussed with pt, who agrees. Will proceed with surgery today. - Current Meds Current Meds: Current Medications Generic Name Dose Route Start Last Admin Trade Name Freq PRN Reason Stop Dose Admin Acetaminophen 650 mg 09/13/18 22:43 09/14/18 11:19 Tylenol PO 650 mg Q4HR PRN Administration Pain 1 to 4 Piperacillin Sod/Tazobactam 100 mls @ 200 mls/hr 09/14/18 04:00 09/14/18 09:47 Sod 3.375 gm/ Sodium Chloride IV Infused Q6H [facility] Infusion Potassium Chloride/Sodium Chloride 1,000 mls @ 125 mls/hr 09/13/18 23:45 09/14/18 15:05 Normal Saline 0.9% W/20 Meq Kcl IV 0 mls/hr .Q8H [facility] Infusion Ondansetron HCl 4 mg 09/13/18 22:43 09/14/18 04:39 Zofran Inj IVP 4 mg Q6HR PRN Administration Nausea / Vomiting Pantoprazole Sodium 40 mg 09/14/18 07:00 09/14/18 06:24 Protonix IVP 40 mg QDAC VERONIKA Administration Lisdexamfetamine 1 each 09/14/18 09:00 09/14/18 09:02 Dimesylate [Vyvanse] PO 1 each 50 Mg Cap DAILY [facility]A Administration Polyethylene Glycol 17 gm 09/14/18 09:00 09/14/18 08:43 Miralax PO Not Given DAILY VERONIKA Sodium Chloride 10 ml 09/13/18 22:43 09/14/18 06:24 Normal Saline Flush 0.9% IVP 10 ml PRN PRN Administration NEEDED PER PROVIDER ORDERS Sodium Chloride 10 ml 09/14/18 01:00 09/14/18 08:43 Normal Saline Flush 0.9% IVP Not Given 0100,0900,1700 VERONIKA - Lab Result Fish Bone Diagrams: 09/14/18 08:17 09/14/18 04:45 - Diagnostic Imaging Results Diagnostic Imaging Results: Discussed with radiologist Diagnostic Imaging Results Comments: MRCP shows minimal edema of the pancreas, marked gallbladder wall thickening, multiple stones in gallbladder, several small stones in cystic duct; no stones in CBD. - Additional Planning Condition/Complexity: Improved Plan Discussed with:: Patient Time Spent: 15-30 minutes Subjective - Subjective Patient Reports: Feeling Better, Resting Comfortably Objective Vital Signs: Vital Signs - 24 hr 09/13/18 09/13/18 09/13/18 19:09 20:38 22:55 Temperature 36.0 C L Heart Rate 84 84 75 Heart Rate [ Brachial] Respiratory 16 16 16 Rate Blood Pressure 126/85 H 131/93 H 119/82 H Blood Pressure [Right Brachial artery] O2 Saturation 98 100 98 09/14/18 09/14/18 00:10 07:42 Temperature 36.6 C 36.4 C L Heart Rate Heart Rate [ 74 81 Brachial] Respiratory 16 16 Rate Blood Pressure Blood Pressure 123/81 H 120/70 [Right Brachial artery] O2 Saturation 99 97 Oxygen O2 Source Room air I&O (Last 24 Hrs): Intake and Output Totals x24h 09/12/18 09/13/18 09/14/18 23:59 23:59 23:59 Intake Total 290 2569.167 Balance 290 2569.167 General: Alert, Oriented x3, Cooperative Abdomen: Other (mild RUQ tenderness) - Results Results: Laboratory Results WBC 5.9 x10^3/uL (4.8-10.8) 09/14/18 08:17 RBC 4.56 10^6/uL (4.20-5.40) 09/14/18 08:17 Hgb 13.8 g/dL (12.0-16.0) 09/14/18 08:17 Hct 40.2 % (37.0-47.0) 09/14/18 08:17 MCV 88.1 fL (81.0-99.0) 09/14/18 08:17 MCH 30.2 pg (27.0-31.0) 09/14/18 08:17 MCHC 34.3 g/dL (32.0-36.0) 09/14/18 08:17 RDW 12.6 % (12.0-15.0) 09/14/18 08:17 Plt Count 261 10^3/uL (130-450) 09/14/18 08:17 MPV 7.7 fL (7.9-10.8) L 09/14/18 08:17 Neut # (Auto) 3.3 10^3/uL (1.5-6.6) 09/14/18 08:17 Lymph # (Auto) 1.7 10^3/uL (1.5-3.5) 09/14/18 08:17 [place] # (Auto) 0.6 10^3/uL (0.0-1.0) 09/14/18 08:17 Eos # (Auto) 0.2 10^3/uL (0.0-0.7) 09/14/18 08:17 Baso # (Auto) 0.1 10^3/uL (0.0-0.1) 09/14/18 08:17 Absolute Nucleated RBC 0.00 x10^3/uL 09/14/18 08:17 Nucleated RBC % 0.0 /100WBC 09/14/18 08:17 Sodium 137 mmol/L (135-145) 09/14/18 04:45 Potassium 4.1 mmol/L (3.5-5.0) 09/14/18 04:45 Chloride 106 mmol/L (101-111) 09/14/18 04:45 Carbon Dioxide 25 mmol/L (21-32) 09/14/18 04:45 Anion Gap 6.0 (6-13) 09/14/18 04:45 BUN 13 mg/dL (6-20) 09/14/18 04:45 Creatinine 0.7 mg/dL (0.4-1.0) 09/14/18 04:45 Estimated GFR (MDRD) 100 (>89) 09/14/18 04:45 Glucose 90 mg/dL (70-100) 09/14/18 04:45 Calcium 8.4 mg/dL (8.5-10.3) L 09/14/18 04:45 Total Bilirubin 2.0 mg/dL (0.2-1.0) H 09/14/18 04:45 AST 679 IU/L (10-42) H 09/14/18 04:45 ALT 761 IU/L (10-60) H 09/14/18 04:45 Alkaline Phosphatase 269 IU/L (42-121) H 09/14/18 04:45 Total Protein 6.8 g/dL (6.7-8.2) 09/14/18 04:45 Albumin 3.7 g/dL (3.2-5.5) 09/14/18 04:45 Globulin 3.1 g/dL (2.1-4.2) 09/14/18 04:45 Albumin/Globulin Ratio 1.2 (1.0-2.2) 09/14/18 04:45 Lipase 506 U/L (22-51) H 09/14/18 04:45 Urine Color ORANGE 09/13/18 19:10 Urine Clarity CLEAR (CLEAR) 09/13/18 19:10 Urine pH 6.5 PH (5.0-7.5) 09/13/18 19:10 Ur Specific [place] >=1.030 (1.002-1.030) H 09/13/18 19:10 Urine Protein NEGATIVE mg/dL (NEGATIVE) 09/13/18 19:10 Urine Glucose (UA) NEGATIVE mg/dL (NEGATIVE) 09/13/18 19:10 Urine Ketones 15 mg/dL (NEGATIVE) H 09/13/18 19:10 Urine Occult Blood LARGE (NEGATIVE) H 09/13/18 19:10 Urine Nitrite NEGATIVE (NEGATIVE) 09/13/18 19:10 Urine Bilirubin SMALL (NEGATIVE) H 09/13/18 19:10 Urine Urobilinogen 0.2 (NORMAL) E.U./dL (NORMAL) 09/13/18 19:10 Ur Leukocyte Esterase NEGATIVE (NEGATIVE) 09/13/18 19:10 Urine RBC TNTC /HPF (0-5) H 09/13/18 19:10 Urine WBC 6-10 /HPF (0-5) H 09/13/18 19:10 Ur Squamous Epith Cells MANY Squamous (<= Few) H 09/13/18 19:10 Urine Bacteria Few /HPF (None Seen) 09/13/18 19:10 Ur Microscopic Review INDICATED 09/13/18 19:10 Urine Culture Comments NOT INDICATED 09/13/18 19:10 Urine HCG, Qual NEGATIVE 09/13/18 19:10 Sepsis Event Note (H) - Evaluation Current Stage of Sepsis: Ruled out ABX Reporting Has patient been on IV antibiotics over the past 48 hours?: No
[2018-09-14] MEDS ORDERED: BUPIVACAINE 0.5%-EPI 1:200000 PF 10 ML VIAL SUBQ ONE ×2 (15:47→16:22)
[2018-09-14] MEDS ORDERED: LACTATED RINGERS 1,000 ML IV ONE ×2 (15:48→16:23)
[2018-09-14] MEDS ORDERED: PROPOFOL 200 MG/20 ML VIAL IVP ONE (16:22)
[2018-09-14] MEDS ORDERED: ROCURONIUM 50 MG/5 ML VIAL IVP ONE (16:22)
[2018-09-14] MEDS ORDERED: KETOROLAC 30 MG/ML VIAL IVP ONE (16:22)
[2018-09-14] MEDS ORDERED: DEXAMETHASONE 4 MG/ML VIAL IVP ONE (16:22)
[2018-09-14] MEDS ORDERED: NEOSTIGMINE 1 MG/1 ML 10 ML MDV IVP ONE (16:22)
[2018-09-14] MEDS ORDERED: HYDROmorphone 1 MG/ML SYRINGE IM ONE (16:22)
[2018-09-14] MEDS ORDERED: GLYCOPYRROLATE 1 MG/5 ML VIAL IVP ONE (16:22)
[2018-09-14] MEDS ORDERED: ONDANSETRON 4 MG/2 ML VIAL IVP ONE (16:22)
[2018-09-14] MEDS ORDERED: MIDAZOLAM 2 MG/2 ML VIAL IVP ONE (16:22)
[2018-09-14] MEDS ORDERED: fentaNYL 250 MCG/5 ML VIAL IVP ONE (16:22)
[2018-09-14] MEDS ORDERED: SUGAMMADEX 200 MG/2 ML VIAL IVP ONE (16:39)
--- NOTE | 2018-09-14 16:41 | OPERATIVE REPORT ---
Operative Report - General Admit Date: 09/13/18 Procedure Date: 09/14/18 Planned Procedure: Laparoscopic cholecystectomy Pre-Op Diagnosis: Acute calculous cholecystitis and biliary pancreatitis Procedure Performed: Laparoscopic cholecystectomy Post Op Diagnosis: Acute calculous cholecystitis and biliary pancreatitis - Procedure Note Primary Surgeon: Gil Juarez MD FACS Secondary Surgeon: none Anesthesia Provider: Jocelyn Rivers CRNA Anesthesia Technique: General ET tube Pathology: gallbladder and stones IV Fluids (mL): 1,100 Estimated Blood Loss (mL): 20 Complications: None
[2018-09-14] MEDS ORDERED: ACETAMINOPHEN 325 MG TABLET PO PRN (16:46)
[2018-09-14] MEDS ORDERED: ONDANSETRON 4 MG/2 ML VIAL ONE (16:50)
[2018-09-14] MEDS: ONDANSETRON 4 MG/2 ML VIAL IVP STA (16:59)
[2018-09-14] MEDS ORDERED: PROMETHAZINE 25 MG/1 ML VIAL ONE (17:13)
[2018-09-14] MEDS: KETOROLAC 30 MG/ML VIAL IVP PRN (18:20)
[2018-09-14] MEDS: LACTATED RINGERS 1,000 ML IV SCH (18:20)
[2018-09-14] MEDS: oxyCODONE 5 MG TABLET PO PRN (21:19)
[2018-09-15] MEDS: KETOROLAC 30 MG/ML VIAL IVP PRN ×2 (00:29→06:37)
--- NOTE | 2018-09-15 01:44 | OPERATIVE REPORT ---
DATE OF SERVICE: 09/14/2018 Physician: Gil Juarez MD PREOPERATIVE DIAGNOSES: Acute calculous cholecystitis and biliary pancreatitis. POSTOPERATIVE DIAGNOSES: Acute calculous cholecystitis and biliary pancreatitis. PROCEDURE PERFORMED: Laparoscopic cholecystectomy. ANESTHESIA: General endotracheal by Jocelyn Rivers CRNA. SURGEON: Gil Juarez MD. ESTIMATED BLOOD LOSS: 20 mL. COMPLICATIONS: None. DRAINS: None. FINDINGS: Laparoscopy revealed an acutely inflamed, edematous gallbladder wall with mild pericholecy stic inflammatory adhesions, a normal caliber cystic duct. Common duct was not visualized. Followin g resection, the gallbladder was seen to contain innumerable small mulberry-shaped yellow gallstones measuring from 2-4 mm in diameter. The visualized portion of the liver, stomach, small and large bow el were otherwise within normal limits. INDICATIONS: Patient is a 27-year-old woman three weeks with acute onset of severe epigas tric abdominal pain. Evaluation revealed evidence of acute calculus cholecystitis and biliary pancre atitis. An MRCP showed no evidence of persistent common duct stones, although there were multiple sm all stones in the cystic duct. She was advised to undergo laparoscopic cholecystectomy in an attempt at definitive surgical treatment and to prevent recurrent episodes of the above-mentioned conditions . TECHNIQUE: After informed consent, the patient was taken to the operating room and was placed under general endotracheal anesthesia. Preoperative preparation included therapeutic administration of Zos yn and application of sequential calf compression boots. Her abdomen was prepped with ChloraPrep pedro ution and draped in the usual sterile fashion. A transverse incision was made along the inferior edg e of the umbilicus and carried down through the layers of the abdominal wall until the peritoneum was identified and entered sharply. A 10 mm Ami cannula was inserted and pneumoperitoneum achieved w ith carbon dioxide. A 10 mm 30-degree Bravo telescope was inserted. Laparoscopy was carried out w ith findings noted above. Three 5 mm ports were placed in the right upper quadrant and the gallbladd er was grasped and retracted in a cephalad and lateral direction, exposing the cystic triangle of Eric ot. This region was carefully dissected using hook electrode and electrocautery, isolating the cysti c duct adjacent to the gallbladder. The cystic artery was seen to be small and branching prior to en try to the gallbladder and the branches were ligated and divided with electrocautery. After the crit ical view of safety had been obtained, the cystic duct was doubly clipped proximally and distally adj acent to the gallbladder and divided between. The gallbladder dissected from the liver bed using erich ctrocautery for dissection and hemostasis. There was a large intrahepatic component to the gallbladd er. Eventually, the gallbladder was able to be detached intact, placed in the organ retrieval bag, e xtracted and opened on the side table with findings noted above. The tissue was then sent for pathol ogic evaluation. After hemostasis had been assured, the right upper quadrant was copiously irrigated with saline solut ion, following which instruments and cannulas were removed under direct vision. Pneumoperitoneum was allowed to escape and the incisions were closed in layers using continuous 0 Vicryl to reapproximate the midline fascia at the umbilicus, followed by 4-0 Monocryl subcuticular skin closure for all the port sites, followed by Dermabond. Anesthesia was terminated and the patient was transferred to the recovery room in satisfactory condition. Sponge and needle counts were correct x2 and no drains were used. TD: 09/14/2018 16:48
[2018-09-15 05:50] LABS: BASOPHILS # (AUTO) 0.1 10^3/uL (0.0-0.1); BASOPHILS % (AUTO) 0.5 %; EOSINOPHILS % (AUTO) 0.4 %; HGB - HEMOGLOBIN 12.8 g/dL (12.0-16.0); MEAN CORPUSCULAR HEMOGLOBIN 29.7 pg (27.0-31.0); MEAN CORPUSCULAR HGB CONC 32.4 g/dL (32.0-36.0); MEAN CORPUSCULAR VOLUME 91.4 fL (81.0-99.0); MEAN PLATELET VOLUME 7.9 fL (7.9-10.8); MONOCYTES # (AUTO) 0.5 10^3/uL (0.0-1.0); MONOCYTES % (AUTO) 5.4 %; NEUTROPHILS # (AUTO) 7.2 10^3/uL (1.5-6.6); NEUTROPHILS % (AUTO) 73.7 %; PLT - PLATELET COUNT 287 10^3/uL (130-450); RED CELL DISTRIBUTION WIDTH 12.7 % (12.0-15.0); WHITE BLOOD COUNT 9.8 x10^3/uL (4.8-10.8)
[2018-09-15 06:10] LABS: ALBUMIN 3.5 g/dL (3.2-5.5); ALBUMIN/GLOBULIN RATIO 1.3 (1.0-2.2); BILIRUBIN,TOTAL 1.1 mg/dL (0.2-1.0); CALCIUM 8.3 mg/dL (8.5-10.3); CREATININE 0.8 mg/dL (0.4-1.0); TOTAL PROTEIN 6.1 g/dL (6.7-8.2)
[2018-09-15] MEDS: SODIUM CHLORIDE FLUSH 0.9% 10 ML SYRINGE IVP PRN (06:37)
[2018-09-15] MEDS: SODIUM CHLORIDE FLUSH 0.9% 10 ML SYRINGE IVP SCH ×2 (06:37→08:59)
[2018-09-15] MEDS: PANTOPRAZOLE 40 MG VIAL IVP SCH (06:37)
[2018-09-15] MEDS: LACTATED RINGERS 1,000 ML IV SCH (06:43)
[2018-09-15] MEDS: POLYETHYLENE GLYCOL 3350 17 GM PACKET PO SCH (09:07)
[2018-09-15] MEDS: LISDEXAMFETAMINE DIMESYLATE 50 MG PO SCH (09:07)
--- NOTE | 2018-09-15 10:29 | PROVIDER PROGRESS NOTE ---
Subjective - General Admit Date: 09/13/18 Procedure Date: 09/14/18 Post Op Days: 1 Procedure Performed: Lap cholecystectomy - Review of Systems Wound/Incisions: positive: No drainage General: positive: No symptoms Gastrointestinal: positive: Abdominal pain (well controlled with analgesics) Objective - Patient Data Reviewed Vital Signs: Yes Vital Signs: Vital Signs x48h Temp Pulse Resp BP Pulse Ox 09/15/18 08:21 36.6 C 78 16 118/64 100 09/15/18 04:49 36.5 C 82 18 128/59 L 99 Weight: Weight 09/13/18 09/14/18 09/15/18 23:59 23:59 23:59 Weight (kg) 79.5 kg 81.193 kg Intake & Output: Intake and Output Totals x24h 09/13/18 09/14/18 09/15/18 23:59 23:59 23:59 Intake Total 290 2569.167 1200 Balance 290 2569.167 1200 - Lab Results Lab Results: 09/15/18 05:30 09/15/18 05:30 Other Lab Results: Lab Results x24hrs 09/15/18 09/15/18 Range/Units 05:30 05:30 WBC 9.8 (4.8-10.8) x10^3/uL RBC 4.30 (4.20-5.40) 10^6/uL Hgb 12.8 (12.0-16.0) g/dL Hct 39.3 (37.0-47.0) % MCV 91.4 (81.0-99.0) fL MCH 29.7 (27.0-31.0) pg MCHC 32.4 (32.0-36.0) g/dL RDW 12.7 (12.0-15.0) % Plt Count 287 (130-450) 10^3/uL MPV 7.9 (7.9-10.8) fL Neut # (Auto) 7.2 H (1.5-6.6) 10^3/uL Lymph # (Auto) 2.0 (1.5-3.5) 10^3/uL [place] # (Auto) 0.5 (0.0-1.0) 10^3/uL Eos # (Auto) 0.0 (0.0-0.7) 10^3/uL Baso # (Auto) 0.1 (0.0-0.1) 10^3/uL Absolute Nucleated RBC 0.01 x10^3/uL Nucleated RBC % 0.1 /100WBC Sodium 137 (135-145) mmol/L Potassium 4.6 (3.5-5.0) mmol/L Chloride 106 (101-111) mmol/L Carbon Dioxide 20 L (21-32) mmol/L Anion Gap 11.0 (6-13) BUN 10 (6-20) mg/dL Creatinine 0.8 (0.4-1.0) mg/dL Estimated GFR (MDRD) 85 L (>89) Glucose 62 L (70-100) mg/dL Calcium 8.3 L (8.5-10.3) mg/dL Total Bilirubin 1.1 H (0.2-1.0) mg/dL AST 167 H (10-42) IU/L ALT 455 H (10-60) IU/L Alkaline Phosphatase 180 H (42-121) IU/L Total Protein 6.1 L (6.7-8.2) g/dL Albumin 3.5 (3.2-5.5) g/dL Globulin 2.6 (2.1-4.2) g/dL Albumin/Globulin Ratio 1.3 (1.0-2.2) Lipase 33 (22-51) U/L - Current Medications Current Medications: Current Medications Generic Name Dose Route Start Last Admin Trade Name Freq PRN Reason Stop Dose Admin Acetaminophen 650 mg 09/14/18 16:46 09/14/18 20:12 Tylenol PO 650 mg Q6H PRN Administration Pain 1 to 4 Lactated Ringer's 1,000 mls @ 80 mls/hr 09/14/18 17:00 09/15/18 06:43 Lr IV 80 mls/hr .[id number] VERONIKA Administration Ketorolac Tromethamine 30 mg 09/14/18 16:43 09/15/18 06:37 Toradol Inj (30mg) IVP 09/19/18 16:42 30 mg Q6HR PRN Administration PAIN Ondansetron HCl 4 mg 09/13/18 22:43 09/14/18 04:39 Zofran Inj IVP 4 mg Q6HR PRN Administration Nausea / Vomiting Oxycodone HCl 5 mg 09/14/18 16:44 09/14/18 21:19 Roxicodone PO 5 mg Q4HR PRN Administration PAIN Pantoprazole Sodium 40 mg 09/14/18 07:00 09/15/18 06:37 Protonix IVP 40 mg QDAC VERONIKA Administration Lisdexamfetamine 1 each 09/14/18 09:00 09/15/18 09:07 Dimesylate [Vyvanse] PO 1 each 50 Mg Cap DAILY VERONIKA Administration Polyethylene Glycol 17 gm 09/14/18 09:00 09/15/18 09:07 Miralax PO 17 gm DAILY VERONIKA Administration Sodium Chloride 10 ml 09/13/18 22:43 09/15/18 06:37 Normal Saline Flush 0.9% IVP 10 ml PRN PRN Administration NEEDED PER PROVIDER ORDERS Sodium Chloride 10 ml 09/14/18 01:00 09/15/18 08:59 Normal Saline Flush 0.9% IVP Not Given 0100,0900,1700 VERONIKA - Physical Exam Wound/Incisions: positive: Healing well, No drainage General Appearance: positive: No acute distress, Alert Eyes Bilateral: positive: No scleral icterus ENT: positive: No signs of dehydration Abdomen: positive: Tenderness (minimal expected postop tenderness) Extremities: positive: No pedal edema. negative: Calf tenderness Neurologic/Psychiatric: positive: Oriented x3 ABX Reporting Has patient been on IV antibiotics over the past 48 hours?: No Impression/Plan - Problem List Problem List: POD # 1 s/p lap natasha for acute calculous cholecystitis and biliary pancreatitis; doing well. Rec: OK for d/c home,usual precautions, RTO 1-2 weeks.
--- NOTE | 2018-09-15 10:31 | Discharge Plan ---
Discharge Plan Disposition: 01 Home, Self Care Condition: Good Diet: Regular Activity Restrictions: Activity as Tolerated (no strenuous physical activities for 1 week) Shower Restrictions: No Driving Restrictions: Yes (not while using narcotics) Weight Bearing: Full Weight Additional Instructions or Follow Up instructions: F/u with Dr. Juarez in 1-2 weeks; call [phone] for an appt if you don't already have one. No Smoking: If you smoke, Please STOP! Call for help.
--- NOTE | 2018-09-15 11:20 | DISCHARGE SUMMARY ---
"Discharge Summary Discharge Date: 09/15/18 Discharging Provider: Gil Call Condition at Discharge: Good Discharge Disposition: 01 Home, Self Care Discharge Facility Name: home - DIAGNOSES Admission Diagnoses: (1) Gallstone pancreatitis (2) Cholecystitis (3) Hx of gastric ulcer (4) ADHD (attention deficit hyperactivity disorder) Discharge Diagnoses with Status of Each Condition: (1) Gallstone pancreatitis resolved. no pain, N/V, and pt tolerate the diet. Lipase is down to 33 (2) Cholecystitis pt had Lapo and cholecystectomy. No more pain, no N/V, and tolerate the diet. Surgeon Dr. Gil Juarez discharged pt, and will followup in 1-2 weeks in his office. (3) Hx of gastric ulcer stable, continue home regimen, followup PCP (4) ADHD (attention deficit hyperactivity disorder) stable, followup PCP management (5) elevated liver enzyme significantly reduced liver enzyme after pt had surgery. unknown exact etiology for elevated liver enzyme. followup PCP and Dr. Gil Juarez to continue monitor discuss with pt about pain Oxycodon meds PRN for the effect and side effects for short term (3 days) usage when she is breast feeding. pt state she understand. Answer all her questions. - HPI History of Present Illness: refer from Dr. Freeman's HPI on 09/14/18 for pt. pt was admitted for upper quadrant abdominal. pt was found to have cholecystitis, and acute pancreatitis, and elevated liver enzyme. pt had GI surgeon consult. - CONSULTS | PROCEDURES Consultations: Dr. Gil Juarez Procedures: cholecystectomy - HOSPITAL COURSE Hospital Course: pt was admitted for upper quadrant abdominal. pt was found to have cholecystitis, and acute pancreatitis, and elevated liver enzyme. pt had surgery of cholecystectomy. pt report her abdominal pain is resolved, no more N/V. pt's liver enzyme is significantly reduced. Surgeon d/c pt, and will follow his in 1- 2 weeks. - ALLERGIES Allergies/Adverse Reactions: Allergies Allergy/AdvReac Type Severity Reaction Status Date / Time quetiapine [From Seroquel] Allergy Unknown Verified 09/13/18 19:12 - MEDICATIONS Home Medications: Ambulatory Orders Medication Instructions Recorded Confirmed Lisdexamfetamine Dimesylate 50 mg PO DAILY 09/13/18 09/14/18 [Vyvanse] raNITIdine [Zantac] 150 mg PO DAILY 09/13/18 09/14/18 Vitamin [Trinatal Rx 1] 1 tab PO DAILY 09/14/18 09/14/18 oxyCODONE [Roxicodone] 5 mg PO Q4-6H #15 tablet 09/15/18 - PHYSICAL EXAM AT DISCHARGE General Appearance: positive: No acute distress, Alert. negative: Lethargic Eyes Bilateral: positive: Normal inspection, PERRL, No lid inflammation, Conjunctivae nml ENT: positive: ENT inspection nml, Pharynx nml, No signs of dehydration. negative: Purulent nasal drainage, Pharyngeal erythema, Oral lesions Neck: positive: Nml inspection, Thyroid nml, No JVD, Trachea midline. negative: Thyromegaly, Lymphadenopathy (R), Lymphadenopathy (L), Stiff neck, Swelling/bruising, Tracheal deviation Respiratory: positive: Chest non-tender, No respiratory distress, Breath sounds nml. negative: Wheezes, Rales, Rhonchi Cardiovascular: positive: Regular rate & rhythm, No murmur, No gallop. negative: Irregularly irregular, Extrasystoles, Tachycardia, Bradycardia, JVD present, Systolic murmur, Diastolic murmur Peripheral Pulses: positive: 2+ Abdomen: positive: Non-tender, No organomegaly, Nml bowel sounds, No distention. negative: Tenderness, Guarding, Rebound Back: positive: Nml inspection. negative: CVA tenderness (R), CVA tenderness (L) Skin: positive: Color nml, No rash, Warm, Dry. negative: Cyanosis, Diaphoresis, Pallor Extremities: positive: Non-tender, Full ROM, Nml appearance. negative: Calf tenderness, Joint swelling, Rosales's sign/cords Neurologic/Psychiatric: positive: Oriented x3, Motor nml, Sensation nml, Mood/affect nml. negative: Weakness, Sensory loss, Facial droop, Slurred/abnml speech, Depressed mood/affect - LABS Result Diagrams: 09/15/18 05:30 09/15/18 05:30 - SEPSIS Current Stage of Sepsis: Ruled out - FOLLOW UP Follow Up: F/u with Dr. uJarez in 1-2 weeks; call [phone] for an appt if you don't already have one, followup PCP in one week - TIME SPENT Time Spent in Discharge (Minutes): 40"
[2018-09-15] MEDS: oxyCODONE 5 MG TABLET PO PRN (11:33)
[2018-09-15 11:36] VITALS: BP 112/62
[2018-09-18 15:38] LABS: HEPATITIS A IGM NON-REACTIVE (NON-REACTIVE); HEPATITIS B CORE ANTIBODY IGM NON-REACTIVE (NON-REACTIVE); HEPATITIS B SURFACE ANTIGEN NON-REACTIVE (NON-REACTIVE); HEPATITIS C ANTIBODY NON-REACTIVE (NON-REACTIVE)
== END 2018-09-15 11:58 | disposition home or self-care (01) | DRG 769 ==
LOC: ED 19:00 → MS2 22:43
PROVIDERS: ADMIT Internal Medicine; ATTEND Nurse Practitioner Gerontology
PROC: 0FT44ZZ Resection of Gallbladder, Percutaneous Endoscopic Approach (ICD-10-PCS; principal; 2018-09-14 14:30)
DX: O99.63 Diseases of the digestive system complicating the puerperium (principal); K85.10 Biliary acute pancreatitis without necrosis or infection; K80.00 Calculus of gallbladder with acute cholecystitis without obstruction; Z87.11 Personal history of peptic ulcer disease; F90.9 Attention-deficit hyperactivity disorder, unspecified type; F31.9 Bipolar disorder, unspecified; K21.9 Gastro-esophageal reflux disease without esophagitis
CPT/HCPCS: 36415; 74181; 76705; 80053; 80074; 81001; 81003; 81025; 83690; 85025; 87086; 99283; 99284

== ENCOUNTER 2018-12-12 10:51 | Emergency (ER) | payer BC, OTHER ==
[2018-12-12 12:28] LABS: HCG UR QUAL NEGATIVE
[2018-12-12 12:28] LABS: BASOPHILS % (AUTO) 0.6 %; EOSINOPHILS # (AUTO) 0.1 10^3/uL (0.0-0.7); EOSINOPHILS % (AUTO) 1.5 %; LYMPHOCYTES # (AUTO) 2.1 10^3/uL (1.5-3.5); LYMPHOCYTES % (AUTO) 27.8 %; MEAN CORPUSCULAR HEMOGLOBIN 29.6 pg (27.0-31.0); MEAN CORPUSCULAR VOLUME 86.9 fL (81.0-99.0); MEAN PLATELET VOLUME 7.7 fL (7.9-10.8); MONOCYTES # (AUTO) 0.5 10^3/uL (0.0-1.0); MONOCYTES % (AUTO) 6.5 %; NEUTROPHILS # (AUTO) 4.7 10^3/uL (1.5-6.6); NEUTROPHILS % (AUTO) 63.6 %; PLT - PLATELET COUNT 283 10^3/uL (130-450); RED BLOOD COUNT 4.74 10^6/uL (4.20-5.40); RED CELL DISTRIBUTION WIDTH 13.3 % (12.0-15.0); WHITE BLOOD COUNT 7.4 x10^3/uL (4.8-10.8)
--- NOTE | 2018-12-12 12:42 | ED Physician Documentation ---
PD HPI FEMALE - Stated complaint Stated Complaint: FEMALE - Chief complaint Chief Complaint: Abd Pain - History obtained from History obtained from: Patient, Family - History of Present Illness Timing - onset: How many days ago (10) Timing - details: Gradual onset Pain level max: 5 Pain level max: 4 Associated symptoms: Vaginal bleeding. No: Fever, Abdominal pain, Back pain, Pelvic pain, Vaginal pain, Vaginal discharge Contributing factors: IUD. No: - Additional information Additional information: Patient had a ParaGard IUD inserted approximately 2 months ago. She is 4 months . She states that she has been bleeding for the past 10 days, heavy with clots. Nothing makes it better or worse Review of Systems Ten Systems: 10 systems reviewed and negative Constitutional: denies: Fever, Chills Nose: denies: Rhinorrhea / runny nose, Congestion Respiratory: denies: Cough GI: denies: Abdominal Pain, Nausea, Vomiting : denies: Now EGA Skin: denies: Rash Musculoskeletal: denies: Neck pain, Back pain Neurologic: denies: Headache PD PAST MEDICAL HISTORY - Past Medical History Past Medical History: Yes Respiratory: None Neuro: None Endocrine/Autoimmune: None GI: Ulcers Psych: Anxiety, Bipolar disorder, ADD/ADHD - Past Surgical History Past Surgical History: No - Present Medications Home Medications: Ambulatory Orders Medication Instructions Recorded Confirmed Lisdexamfetamine Dimesylate 50 mg PO DAILY 09/13/18 09/14/18 [Vyvanse] raNITIdine [Zantac] 150 mg PO DAILY 09/13/18 09/14/18 Vitamin [Trinatal Rx 1] 1 tab PO DAILY 09/14/18 09/14/18 oxyCODONE [Roxicodone] 5 mg PO Q4-6H #15 tablet 09/15/18 - Allergies Allergies/Adverse Reactions: Allergies Allergy/AdvReac Type Severity Reaction Status Date / Time quetiapine [From Seroquel] Allergy Unknown Verified 12/12/18 11:14 - Social History Does the pt smoke?: No Smoking Status: Never smoker Does the pt drink ETOH?: No Does the pt have substance abuse?: No - Immunizations Immunizations are current?: Yes - POLST Patient has POLST: No PD ED PE NORMAL - Vitals Vital signs reviewed: Yes - General General: Alert and oriented X 3, No acute distress, Well developed/nourished - HEENT HEENT: PERRL, Moist mucous membranes - Neck Neck: Supple, no meningeal sign - Cardiac Cardiac: RRR, Strong equal pulses - Respiratory Respiratory: No respiratory distress, Clear bilaterally - Abdomen Abdomen: Soft, Non tender, Non distended - Female Female : Other (IUD strings visible. Dark blood from the cervical os) - Derm Derm: Warm and dry - Extremities Extremities: No edema - Neuro Neuro: Alert and oriented X 3 - Psych Psych: Normal mood, Normal affect Results - Vitals Vitals: Vital Signs - 24 hr 12/12/18 12/12/18 12/12/18 11:11 13:20 15:54 Temperature 36.4 C L 36.5 C Heart Rate 96 83 65 Respiratory 18 16 18 Rate Blood Pressure 130/88 H 132/83 H 116/78 O2 Saturation 99 100 100 Oxygen O2 Source Room air - Labs Labs: Laboratory Tests 12/12/18 12/12/18 12/12/18 11:20 12:15 12:15 WBC 7.4 RBC 4.74 Hgb 14.0 Hct 41.2 MCV 86.9 MCH 29.6 MCHC 34.0 RDW 13.3 Plt Count 283 MPV 7.7 L Neut # (Auto) 4.7 Lymph # (Auto) 2.1 [place] # (Auto) 0.5 Eos # (Auto) 0.1 Baso # (Auto) 0.0 Absolute Nucleated RBC 0.00 Nucleated RBC % 0.1 Sodium 137 Potassium 3.7 Chloride 103 Carbon Dioxide 25 Anion Gap 9.0 BUN 11 Creatinine 0.7 Estimated GFR (MDRD) 99 Glucose 86 Calcium 9.2 Total Bilirubin 0.8 AST 29 ALT 35 Alkaline Phosphatase 56 Total Protein 7.7 Albumin 4.5 Globulin 3.2 Albumin/Globulin Ratio 1.4 Lipase 32 Ur Specific [place] >=1.030 H Urine HCG, Qual NEGATIVE Blood Type 12/12/18 12:15 WBC RBC Hgb Hct MCV MCH MCHC RDW Plt Count MPV Neut # (Auto) Lymph # (Auto) [place] # (Auto) Eos # (Auto) Baso # (Auto) Absolute Nucleated RBC Nucleated RBC % Sodium Potassium Chloride Carbon Dioxide Anion Gap BUN Creatinine Estimated GFR (MDRD) Glucose Calcium Total Bilirubin AST ALT Alkaline Phosphatase Total Protein Albumin Globulin Albumin/Globulin Ratio Lipase Ur Specific [place] Urine HCG, Qual Blood Type A NEGATIVE - Rads (name of study) Pelvic ultrasound Radiology: Prelim report reviewed, EMP read contemporaneously, See rad report (Malposition of the IUD in the lower uterine segment and cervix as described. ) PD MEDICAL DECISION MAKING - ED course Complexity details: reviewed results, re-evaluated patient, considered differential, d/w patient ED course: 28-year-old female with a malpositioned IUD, causing Uterine bleeding. Discussed case with Dr. Magallanes, gynecology on-call who recommends removal. The IUD was removed. Tolerated well. No complications. Patient counseled regarding signs and symptoms for which I believe and urgent re-evaluation would be necessary. Patient with good understanding of and agreement to plan and is comfortable going home at this time This document was made in part using voice recognition software. While efforts are made to proofread this document, sound alike and grammatical errors may occur. Departure - Departure Disposition: 01 Home, Self Care Clinical Impression: Malpositioned intrauterine device (IUD) Qualifiers: Encounter type: initial encounter Qualified Code(s): T83.32XA - Displacement of intrauterine contraceptive device, initial encounter Condition: Good Follow-Up: Katarina Garcia CNM, [employer] EXAMINER [Provider Admit Priv/Credential] - Within 1 week Comments: Return if you worsen. Follow-up with gynecology for further care. Your IUD was removed today as it was malpositioned. You are no longer protected against unplanned .
[2018-12-12] MEDS ORDERED: SODIUM CHLORIDE 0.9% 1,000 ML IV ONE (12:43)
[2018-12-12 12:44] LABS: ALBUMIN 4.5 g/dL (3.2-5.5); ALBUMIN/GLOBULIN RATIO 1.4 (1.0-2.2); BILIRUBIN,TOTAL 0.8 mg/dL (0.2-1.0); CALCIUM 9.2 mg/dL (8.5-10.3); CREATININE 0.7 mg/dL (0.4-1.0); TOTAL PROTEIN 7.7 g/dL (6.7-8.2)
--- NOTE | 2018-12-12 14:59 | Ultrasound Report ---
Reason: IUD placement Procedure Date: 12/12/2018 Accession Number: [id number] / [id number] Procedure: US - Pelvic w/Transvaginal CPT Code: FULL RESULT: EXAM: PELVIC ULTRASOUND EXAM DATE: 12/12/2018 01:38 PM. CLINICAL HISTORY: IUD placement. COMPARISON: None. TECHNIQUE: Realtime transabdominal pelvic scan performed to identify the uterus and adnexa and as an overview of other pelvic structures, followed by transvaginal scan to provide greater detail of the uterus and adnexa, with static image documentation. FINDINGS: Uterus: 8.2 x 3.8 x 5.7 cm, volume 92.9 cc. Anteverted position. Normal overall size and echotexture. Masses: None. Endometrium: 5.4 mm. Normal. Cervix: IUD in the lower uterine segment and cervix; the most proximal portion of the 6 mm of the os. Right Ovary: 3.2 x 2.1 x 1.9 cm, volume 6.7 cc. Normal echotexture and blood flow. Left Ovary: 3.3 x 1.4 x 2.3 cm, volume 5.6 cc. Normal echotexture and blood flow. Free Fluid: None. Other: None. IMPRESSION: Malposition of the IUD in the lower uterine segment and cervix as described. RADIA The above call report findings were discussed with Rusty Galloway by Dr. John Garcia at 02:57 PM on 12/12/2018.
[2018-12-12 15:55] VITALS: BP 116/78
== END 2018-12-12 16:05 | disposition home or self-care (01) ==
LOC: ED 10:51
DX: T83.32XA Displacement of intrauterine contraceptive device, initial encounter (principal); Y84.8 Other medical procedures as the cause of abnormal reaction of the patient, or of later complication, without mention of misadventure at the time of the procedure
CPT/HCPCS: 36415; 58301; 76830; 76856; 80053; 81025; 83690; 85025; 86900; 86901; 96360; 96361; 99283

== ENCOUNTER 2019-09-27 16:30 | Outpatient (CLI) | payer BC, OTHER ==
--- NOTE | 2019-09-28 00:42 | Ultrasound Report ---
Reason: TEST POSITIVE Procedure Date: 09/27/2019 Accession Number: [id number] / [id number] Procedure: US - OB First Trimester CPT Code: Final Report FULL RESULT: EXAM: FIRST TRIMESTER OBSTETRIC ULTRASOUND (Less than 11 weeks) EXAM DATE: 09/27/2019 05:40 PM. CLINICAL HISTORY: TEST POSITIVE. LMP: 08/02/2019. COMPARISONS: None. TECHNIQUE: Transabdominal and transvaginal ultrasound examination with static image documentation. CLINICAL DATES: EGA 8 weeks 0 days with REMINGTON 05/08/2020 based on LMP. ASSESSMENT: Gestational Sac: Single intrauterine. Mean gestational sac diameter: 30 mm = 8 weeks 1 day. Embryo: CRL (crown-rump length) 15 mm = 7 weeks 6 days. Cardiac activity: 157 beats per minute. Yolk sac: 5.7 mm. Amniotic fluid: Not accurately assessed at this gestational age. Early placenta: Not visible at this gestational age. Other: No perigestational fluid collection demonstrated. MATERNAL STRUCTURES: Uterus: Retroverted. Unremarkable. Cervix: Closed. Right Ovary/Adnexa: The ovary measures 3.1 x 2.2 x 1.7 cm, volume 6 cc. Unremarkable. Left Ovary/Adnexa: The ovary measures 4.1 x 2.6 x 1.8 cm, volume 10 cc. 2.0 cm corpus luteum. Free Fluid: None. Other: None. IMPRESSION: 1. Single viable intrauterine at EGA 7 weeks 6 days with REMINGTON 05/09/2020 based on crown-rump length, which is concordant with clinical dates. 2. Assigned dating is REMINGTON 05/08/2020 based on LMP. FABIÁN
== END 2019-09-27 16:31 | disposition home or self-care (01) ==
LOC: DI 16:30
PROVIDERS: ATTEND Nurse Practitioner Obstetrics & Gynecology
DX: Z32.01 Encounter for pregnancy test, result positive (principal)
CPT/HCPCS: 76801; 76817

== ENCOUNTER 2019-10-12 08:00 | Outpatient (CLI) | payer BC, OTHER ==
[2019-10-12 17:40] LABS: MUDS CUTOFF CONCENTRATIONS CUTOFF CONC BELOW:
[2019-10-12 18:02] LABS: BILIRUBIN,URINE NEGATIVE (NEGATIVE); GLUCOSE, URINE (UA) NEGATIVE (NEGATIVE); KETONES,URINE (UA) NEGATIVE (NEGATIVE); LEUKOCYTE ESTERASE, URINE NEGATIVE (NEGATIVE); NITRITE,URINE NEGATIVE (NEGATIVE); OCCULT BLOOD,URINE NEGATIVE (NEGATIVE); PROTEIN,URINE NEGATIVE (NEGATIVE); UROBILINOGEN,URINE 0.2 (NORMAL) E.U./dL (NORMAL)
[2019-10-12 18:12] LABS: AMPHETAMINE SCREEN,URINE POSITIVE (NEGATIVE); BENZODIAZEPINES SCREEN, URINE NEGATIVE (NEGATIVE); CLARITY,URINE CLEAR (CLEAR); COCAINE SCREEN URINE NEGATIVE (NEGATIVE); METHADONE SCREEN, URINE NEGATIVE (NEGATIVE); METHAMPHETAMINES SCREEN, URINE NEGATIVE (NEGATIVE); OPIATE SCREEN, URINE NEGATIVE (NEGATIVE); OXYCODONE SCREEN, URINE NEGATIVE (NEGATIVE); PROPOXYPHENE SCREEN, URINE NEGATIVE (NEGATIVE); TRICYCLIC ANTIDEPRESSANT,URINE NEGATIVE (NEGATIVE)
[2019-10-12 18:19] LABS: BACTERIA,URINE Rare /HPF (None Seen); RBC,URINE 0-5 /HPF (0-5); SQUAMOUS EPITHELIAL CELL,UR MANY Squamous (<= Few)
[2019-10-12 22:49] LABS: TRICHOMONAS VAGINALIS DNA NEGATIVE (NEGATIVE)
== END 2019-10-12 23:59 | disposition home or self-care (01) ==
LOC: LAB.R 08:00
PROVIDERS: ATTEND Nurse Practitioner Obstetrics & Gynecology
DX: Z36.89 Encounter for other specified antenatal screening (principal)
CPT/HCPCS: 80306; 81001; 87086; 87491; 87591; 87661

== ENCOUNTER 2019-10-21 12:03 | Outpatient (CLI) | payer BC, OTHER | END 2019-10-21 12:04 | disposition home or self-care (01) | LOC: LAB 12:03 | PROVIDERS: ATTEND Nurse Practitioner Obstetrics & Gynecology | DX: Z36.89 Encounter for other specified antenatal screening (principal) | CPT/HCPCS: 36415; 80306; 81001; 81599; 85025; 86762; 86850; 86900; 86901; 87086; 87340; 87389; 87491; 87591; 87661; 87902 ==

== ENCOUNTER 2019-10-24 11:39 | Outpatient (CLI) | payer BC, OTHER ==
[2019-10-24 11:59] LABS: BASOPHILS # (AUTO) 0.1 10^3/uL (0.0-0.1); BASOPHILS % (AUTO) 0.5 %; EOSINOPHILS # (AUTO) 0.1 10^3/uL (0.0-0.7); EOSINOPHILS % (AUTO) 1.1 %; HGB - HEMOGLOBIN 12.8 g/dL (12.0-16.0); LYMPHOCYTES # (AUTO) 2.3 10^3/uL (1.5-3.5); LYMPHOCYTES % (AUTO) 21.6 %; MEAN CORPUSCULAR HEMOGLOBIN 30.8 pg (27.0-31.0); MEAN CORPUSCULAR HGB CONC 34.3 g/dL (32.0-36.0); MEAN CORPUSCULAR VOLUME 89.7 fL (81.0-99.0); MEAN PLATELET VOLUME 9.3 fL (7.9-10.8); MONOCYTES # (AUTO) 0.6 10^3/uL (0.0-1.0); MONOCYTES % (AUTO) 5.4 %; NEUTROPHILS # (AUTO) 7.6 10^3/uL (1.5-6.6); PLT - PLATELET COUNT 251 10^3/uL (130-450); RED BLOOD COUNT 4.16 10^6/uL (4.20-5.40); WHITE BLOOD COUNT 10.7 x10^3/uL (4.8-10.8)
[2019-10-25 12:08] LABS: HEPATITIS B SURFACE ANTIGEN NON-REACTIVE (NON-REACTIVE)
[2019-10-25 13:48] LABS: HEPATITIS C ANTIBODY NON-REACTIVE (NON-REACTIVE)
[2019-10-25 14:35] LABS: HIV AG/AB 4TH GEN NON-REACTIVE (NON-REACTIVE)
== END 2019-10-24 11:40 | disposition home or self-care (01) ==
LOC: LAB 11:39
PROVIDERS: ATTEND Nurse Practitioner Obstetrics & Gynecology
DX: Z36.89 Encounter for other specified antenatal screening (principal); Z36.0 Encounter for antenatal screening for chromosomal anomalies
CPT/HCPCS: 36415; 81599; 85025; 86592; 86762; 86803; 86850; 86900; 86901; 87340; 87389

== ENCOUNTER 2019-12-03 15:12 | Outpatient (CLI) | payer BC, OTHER | END 2019-12-03 15:13 | disposition home or self-care (01) | LOC: LAB 15:12 | PROVIDERS: ATTEND Nurse Practitioner Obstetrics & Gynecology | DX: Z36.89 Encounter for other specified antenatal screening (principal) | CPT/HCPCS: 36415; 81511; 81599 ==

== ENCOUNTER 2019-12-07 15:04 | Emergency (ER) | payer OTHER, BC ==
[2019-12-07 15:23] VITALS: BP 119/71
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
== END 2019-12-07 16:41 | disposition home or self-care (01) ==
LOC: ED 15:04
DX: O99.89 Other specified diseases and conditions complicating pregnancy, childbirth and the puerperium (principal); R10.30 Lower abdominal pain, unspecified; V53.6XXA Passenger in pick-up truck or van injured in collision with car, pick-up truck or van in traffic accident, initial encounter; Y92.410 Unspecified street and highway as the place of occurrence of the external cause; Z3A.18 18 weeks gestation of pregnancy
CPT/HCPCS: 99281; 99284

== ENCOUNTER 2019-12-10 15:57 | Outpatient (CLI) | payer BC, OTHER | END 2019-12-10 15:58 | disposition home or self-care (01) | LOC: LAB 15:57 | PROVIDERS: ATTEND Nurse Practitioner Obstetrics & Gynecology | DX: O09.899 Supervision of other high risk pregnancies, unspecified trimester (principal); Z3A.00 Weeks of gestation of pregnancy not specified | CPT/HCPCS: 36415; 86850 ==

== ENCOUNTER 2019-12-10 17:20 | Outpatient (CLI) | payer BC, OTHER ==
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
[2019-12-10 18:56] VITALS: BP 132/88
== END 2019-12-10 18:15 | disposition home or self-care (01) ==
LOC: WFO 17:20 → FBP 17:23 → WFO 18:15
PROVIDERS: ATTEND Obstetrics & Gynecology
DX: O99.89 Other specified diseases and conditions complicating pregnancy, childbirth and the puerperium (principal); R10.32 Left lower quadrant pain; Z3A.18 18 weeks gestation of pregnancy
CPT/HCPCS: 36415; 86850; 99211; 99213

== ENCOUNTER 2019-12-17 06:57 | Outpatient (CLI) | payer BC, OTHER ==
--- NOTE | 2019-12-18 09:01 | Ultrasound Report ---
Reason: SCREENING Procedure Date: 12/17/2019 Accession Number: [id number] / [id number] Procedure: US - OB Detailed Eval CPT Code: Final Report FULL RESULT: EXAM: COMPLETE OBSTETRICAL ULTRASOUND EXAM DATE: 12/17/2019 08:05 AM. CLINICAL HISTORY: anatomic survey. COMPARISON: OB FIRST TRIMESTER 09/27/2019 5:03 PM. TECHNIQUE: Real-time sonographic evaluation of the fetus performed by the oncology coordinator. Multiple solar manufacturer's representative static images were saved for review. DATING: Established EGA 19 weeks 4 days with REMINGTON 05/08/2020 based on LMP of 08/02/2019. EGA 19 weeks 3 days with REMINGTON 05/09/2020 based on prior ultrasound. EGA 19 weeks 2 days with REMINGTON 05/10/2020 based on the current ultrasound. GENERAL EVALUATION Lim . Cardiac activity: 141 bpm. movement: Visualized. Presentation: Variable Placenta: Posterior position. No evidence for previa. Umbilical cord: 3 vessel cord. Central placental cord origin. Amniotic fluid: Subjectively normal. MVP 3.6 cm. BIOMETRY Bi-Parietal Diameter (BPD): 4.26 cm, 18 weeks 6 days Head Circumference (HC): 16.27 cm, 19 weeks 0 days Abdominal Circumference (AC): 14.44 cm, 19 weeks 5 days Femur Length (FL): 3.01 cm, 19 weeks 2 days Estimated Weight: 295 g, 40th percentile for 19 weeks 2 days. ANATOMY The intracranial structures, profile, face/nose/lips, spine, 4 chamber heart and outflow tracts, stomach, abdominal wall and cord insertion, diaphragm, kidneys, bladder, and extremities were visualized and demonstrate no abnormality. MATERNAL STRUCTURES Uterus: Unremarkable. Cervix: Long and closed. Transabdominal length 6.2 cm. Right ovary/adnexa: Unremarkable. Left ovary/adnexa: Unremarkable. Free fluid: None. IMPRESSION: 1. Lim live intrauterine with gestational age 19 weeks 2 days based on this ultrasound examination. Findings correlate well with EGA based on clinical dates. 2. Estimated weight is within expected limits for assigned dating. 3. Normal anatomic survey. No anatomic abnormalities are detected at this time. RADIA
== END 2019-12-17 06:58 | disposition home or self-care (01) ==
LOC: DI 06:57
PROVIDERS: ATTEND Nurse Practitioner Obstetrics & Gynecology
DX: Z36.89 Encounter for other specified antenatal screening (principal)
CPT/HCPCS: 76811

== ENCOUNTER 2020-02-13 08:44 | Outpatient (CLI) | payer BC, OTHER ==
[2020-02-13 10:11] LABS: HGB - HEMOGLOBIN 13.3 g/dL (12.0-16.0); MEAN CORPUSCULAR HEMOGLOBIN 32.1 pg (27.0-31.0); MEAN CORPUSCULAR HGB CONC 34.4 g/dL (32.0-36.0); MEAN CORPUSCULAR VOLUME 93.5 fL (81.0-99.0); MEAN PLATELET VOLUME 9.6 fL (7.9-10.8); RED BLOOD COUNT 4.14 10^6/uL (4.20-5.40); RED CELL DISTRIBUTION WIDTH 13.3 % (12.0-15.0); WHITE BLOOD COUNT 12.3 x10^3/uL (4.8-10.8)
== END 2020-02-13 08:45 | disposition home or self-care (01) ==
LOC: LAB 08:44
PROVIDERS: ATTEND Obstetrics & Gynecology
DX: Z36.89 Encounter for other specified antenatal screening (principal)
CPT/HCPCS: 36415; 82950; 85027; 86850; 86870

== ENCOUNTER 2020-02-15 09:31 | Outpatient (CLI) | payer BC, OTHER ==
--- NOTE | 2020-02-16 10:35 | Ultrasound Report ---
Reason: SUPER OF HIGH RISK PREGN, PT ON VYVANSE Procedure Date: 02/15/2020 Accession Number: [id number] / [id number] Procedure: US - OB F/U or Repeat CPT Code: Final Report FULL RESULT: EXAM: FOLLOW-UP OBSTETRICAL ULTRASOUND EXAM DATE: 02/15/2020 10:29 AM. CLINICAL HISTORY: Supervision of high risk . Patient on Vyvanse. COMPARISON: OB DETAILED EVAL 12/17/2019 7:01 AM OB FIRST TRIMESTER 09/27/2019 5:03 PM. TECHNIQUE: Real-time sonographic evaluation of the fetus performed by the shadowgraph scale operator. Additional transvaginal imaging to more accurately evaluate cervical length/placental position/etc. Multiple malt liquors sales representative static images were saved for review. DATING: Established EGA 28 weeks, 1 day with REMINGTON 05/08/2020 based on LMP/stated dating. EGA 28 weeks, 0 days with REMINGTON 05/09/2020 based on first ultrasound. EGA 28 weeks, 6 days with REMINGTON 05/03/2020 based on the current ultrasound. GENERAL EVALUATION Lim . Cardiac activity: 147 bpm. movement: Visualized. Presentation: Cephalic Placenta: Posterior position. Amniotic fluid: Normal. [place] 15.4 cm. MVP 4.8 cm. BIOMETRY Bi-Parietal Diameter (BPD): 7.1 cm, 28 weeks, 3 days. Head Circumference (HC): 26.2 cm, 28 weeks, 3 days. Abdominal Circumference (AC): 25.8 cm, 30 weeks, 0 days. Femur Length (FL): 5.3 cm, 28 weeks, 2 days. Estimated Weight: 1343 g, 75.8 percentile for 28 weeks, 1 day. ANATOMY Limited visualization of the anatomy is unremarkable. MATERNAL STRUCTURES Cervical length measures 5.2 cm. IMPRESSION: 1. Lim live intrauterine with gestational age 28 weeks, 1 day based on source of assigned dating. 2. Estimated weight is within expected limits for assigned dating. 3. Appropriate interval growth. 4. Normal [place]-15.4 cm. MVP 4.8 cm. RADIA
== END 2020-02-15 09:32 | disposition home or self-care (01) ==
LOC: DI 09:31
PROVIDERS: ATTEND Obstetrics & Gynecology
DX: O09.893 Supervision of other high risk pregnancies, third trimester (principal); Z3A.28 28 weeks gestation of pregnancy
CPT/HCPCS: 76816

== ENCOUNTER 2020-03-04 16:10 | Outpatient (CLI) | payer OTHER ==
[2020-03-04 16:57] VITALS: BP 121/65
[2020-03-04 17:03] LABS: BILIRUBIN,URINE NEGATIVE (NEGATIVE); GLUCOSE, URINE (UA) NEGATIVE (NEGATIVE); KETONES,URINE (UA) NEGATIVE (NEGATIVE); LEUKOCYTE ESTERASE, URINE SMALL (NEGATIVE); NITRITE,URINE NEGATIVE (NEGATIVE); OCCULT BLOOD,URINE NEGATIVE (NEGATIVE); PROTEIN,URINE NEGATIVE (NEGATIVE); UROBILINOGEN,URINE 0.2 (NORMAL) E.U./dL (NORMAL)
[2020-03-04 17:15] LABS: BACTERIA,URINE Many /HPF (None Seen); CLARITY,URINE CLEAR (CLEAR); RBC,URINE 0-5 /HPF (0-5); SQUAMOUS EPITHELIAL CELL,UR MANY Squamous (<= Few)
[2020-03-04] MEDS ORDERED: TERBUTALINE 1 MG/ML VIAL SUBQ ONE (18:36)
[2020-03-04 18:49] LABS: CANDIDA GROUP DNA NEGATIVE (NEGATIVE); CANDIDA KRUSEI DNA NEGATIVE (NEGATIVE); TRICHOMONAS VAGINALIS DNA NEGATIVE (NEGATIVE)
[2020-03-04] MEDS ORDERED: DOCUSATE SODIUM 100 MG CAPSULE PO SCH (19:00)
[2020-03-04 19:53] LABS: TRICHOMONAS VAGINALIS DNA NEGATIVE (NEGATIVE)
--- NOTE | 2020-03-26 13:05 | PROVIDER PROGRESS NOTE ---
- HPI Chief Complaint: Other (Patient is a 29 yo at 30+2 wga here with contractions. They are about 10+ minutes apart and take her breath away when she has one. She states that are cramping in the front and wrap around into her back. She denies IC in the last 24 hours, not leaking of fluid, no bleeding.) Current : Current EDU 05/08/20 Gestation 30 Weeks and 5 Days 2 Para 1 Vital Signs Temperature 98.1 F 03/04/20 16:22 Heart Rate 97 03/04/20 16:22 Respiratory Rate 18 03/04/20 16:22 Blood Pressure 121/65 03/04/20 16:22 O2 Saturation 100 03/04/20 16:22 Temperature 98.1 F 03/04/20 16:22 Heart Rate 97 03/04/20 16:22 Respiratory Rate 18 03/04/20 16:22 Blood Pressure 121/65 03/04/20 16:22 O2 Saturation 100 03/04/20 16:22 - Exam GEN: NAD HEENT: NCAT CV; RRR RESP: CTAB, normal effort ABD: gravid S&NT/ND SSE: visually long SVE: closed/long/high; unchanged in serial exam per RN EXT: WWP EFM 135 mod rafy 15x15 accels no decels TOCO: Q 10 min prior to intervention FFN neg GCCT neg Vaginitis panel neg UA neg No change in SVE over 3 hours of observation - Procedures NST Procedure: Cat I tracing Service Date of procedure: 03/04/20 Findings: Reassuring and stable cervical exam FFN neg Labs as above COntractions cont despite hydration; no change in cervix Terbutaline 0.25 mcg SQ administered Contractions ceased and did not recur after 30+ minutes of additional observation - Plan Plan: Stable SVE and reassuring labs with regard to labor contractions persisted despite hydration, terbutaline given and ctx ceased and did not recur Continued observation showed diminished uterine activity with Cat I tracing Warning signs reviewed and patient discharged to home
== END 2020-03-04 19:58 | disposition home or self-care (01) ==
LOC: WFO 16:10 → FBP 16:11 → WFO 19:58
PROVIDERS: ATTEND Obstetrics & Gynecology
DX: O47.03 False labor before 37 completed weeks of gestation, third trimester (principal); Z3A.30 30 weeks gestation of pregnancy
CPT/HCPCS: 81001; 82731; 87481; 87491; 87591; 87661; 87797; 87801; 96372; 99213; A9270; 87086

== ENCOUNTER 2020-03-24 15:12 | Outpatient (CLI) | payer OTHER ==
[2020-03-25 11:05] LABS: BILIRUBIN,URINE NEGATIVE (NEGATIVE); CLARITY,URINE CLOUDY (CLEAR); GLUCOSE, URINE (UA) NEGATIVE (NEGATIVE); KETONES,URINE (UA) NEGATIVE (NEGATIVE); LEUKOCYTE ESTERASE, URINE NEGATIVE (NEGATIVE); NITRITE,URINE NEGATIVE (NEGATIVE); OCCULT BLOOD,URINE NEGATIVE (NEGATIVE); PH,URINE 6.5 PH (5.0-7.5); PROTEIN,URINE NEGATIVE (NEGATIVE); UROBILINOGEN,URINE 0.2 (NORMAL) E.U./dL (NORMAL)
[2020-03-25 11:21] LABS: BACTERIA,URINE Few /HPF (None Seen); CRYSTALS,URINE 0-2 Calcium Oxalate /LPF; RBC,URINE 0-5 /HPF (0-5); SQUAMOUS EPITHELIAL CELL,UR MOD Squamous (<= Few)
== END 2020-03-24 23:59 | disposition home or self-care (01) ==
LOC: LAB.R 15:12
PROVIDERS: ATTEND Obstetrics & Gynecology
DX: R35.0 Frequency of micturition (principal)
CPT/HCPCS: 81001; 87086

== ENCOUNTER 2020-03-31 16:05 | Outpatient (CLI) | payer OTHER ==
--- NOTE | 2020-04-01 16:52 | Ultrasound Report ---
PROCEDURE: OB F/U or Repeat INDICATIONS: SUPERVISION OF HIGH RISK OUTSIDE/PRIOR DATING DATA: Last menstrual period (LMP): 08/02/2019. LMP-based estimated date of delivery (REMINGTON): 05/08/2020. First dating scan (date and location): 09/27/2019. Estimated date of delivery (REMINGTON) from first dating scan: 05/08/2020. TECHNIQUE: Real-time scanning was performed of the fetus, with image documentation and biometric measurements. COMPARISON: OB ultrasound 02/15/2020, 12/17/2019, 09/27/2019 FINDINGS: General: A single living intrauterine gestation is present. Presentation: Vertex Placenta: Placental position is posterior, without previa. Amniotic fluid index: 22.4 cm, 98 percentile for gestational age. 7.3 cm heart rate: 139 beats per minute. Maternal cervical canal: 4.7 cm long; normal length is 2.5 cm or more. biometrics: Biparietal diameter: 8.7 cm 34 weeks 6 days Head circumference: 30.6 cm 34 weeks 0 days Abdominal circumference: 32.3 cm 36 weeks 1 day Femur length: 6.6 cm 34 weeks 1 day Estimated gestational age from initial scan: 34 weeks 4 days Composite gestational age from present scan: 36 weeks 2 days Estimated weight and percentile: 2644 g, 67th percentile Measurement variability in biometric dating: +/- 10 days from 12-20 weeks gestation, +/- 2 weeks from 20-30 weeks gestation, +/- 3 weeks at 30 weeks gestation or more. Other: BPP: Tone: 2 Movement: 2 Respiration: 2 Largest pocket 7.3 cm IMPRESSION: 1. Single live intrauterine with amniotic fluid at the 90th percentile for gestational age. Appearance is concerning for polyhydramnios. 2. BPP 8 out of 8. Reviewed by: Brigida Barakat MD on 04/01/2020 4:51 PM PDT Approved by: Brigida Barakat MD on 04/01/2020 4:51 PM PDT Station ID: [id number]
== END 2020-03-31 16:06 | disposition home or self-care (01) ==
LOC: DI 16:05
PROVIDERS: ATTEND Obstetrics & Gynecology
DX: O09.899 Supervision of other high risk pregnancies, unspecified trimester (principal); O28.8 Other abnormal findings on antenatal screening of mother; Z3A.34 34 weeks gestation of pregnancy
CPT/HCPCS: 76816

== ENCOUNTER 2020-04-14 11:30 | Outpatient (CLI) | payer OTHER ==
[2020-04-15 19:17] LABS: TRICHOMONAS VAGINALIS DNA NEGATIVE (NEGATIVE)
== END 2020-04-14 23:59 | disposition home or self-care (01) ==
LOC: LAB.R 11:30
PROVIDERS: ATTEND Obstetrics & Gynecology
DX: O09.899 Supervision of other high risk pregnancies, unspecified trimester (principal); Z3A.00 Weeks of gestation of pregnancy not specified
CPT/HCPCS: 87491; 87591; 87661

== ENCOUNTER 2020-04-25 21:18 | Outpatient (CLI) | payer OTHER ==
[2020-04-25 23:03] VITALS: BP 121/69
--- NOTE | 2020-04-26 11:57 | PROCEDURE REPORT ---
- HPI Diagnosis/Indication for NST: Other (labor check) Current EDU 05/08/20 Gestation 38 Weeks and 1 Days 2 Para 1 Vital Signs Temperature 98.1 F 04/25/20 21:27 Heart Rate 94 04/25/20 21:27 Respiratory Rate 17 04/25/20 21:27 Blood Pressure 121/69 04/25/20 21:27 O2 Saturation 99 04/25/20 21:27 Temperature 98.1 F 04/25/20 21:27 Heart Rate 94 04/25/20 21:27 Respiratory Rate 17 04/25/20 21:27 Blood Pressure 121/69 04/25/20 21:27 O2 Saturation 99 04/25/20 21:27 - NST Procedure NST Procedure Start Time 13:50 Stop Time 14:10 - Results and Plan Findings/Impression: Category 1 NST [place] q6min to longer than q10min Labor check at term. SVE unchanged throughout triage visit, pt discharged home, routine follow up.
== END 2020-04-25 23:00 | disposition home or self-care (01) ==
LOC: WFO 21:18 → FBP 21:19 → WFO 23:00
PROVIDERS: ATTEND Obstetrics & Gynecology
DX: Z34.83 Encounter for supervision of other normal pregnancy, third trimester (principal); Z3A.38 38 weeks gestation of pregnancy
CPT/HCPCS: 99213

== ENCOUNTER 2020-04-28 08:18 | Inpatient (IN) | payer OTHER ==
[2020-04-28] MEDS ORDERED: LIDOCAINE-MPF 1% 30 ML VIAL ID PRN (08:24)
[2020-04-28] MEDS ORDERED: OXYTOCIN/SODIUM CHLORIDE 500 ML IV PRN (08:24)
[2020-04-28] MEDS ORDERED: METHYLERGONOVINE 0.2 MG/ML VIAL IM PRN (08:24)
[2020-04-28] MEDS ORDERED: OXYTOCIN 10 UNIT/ML VIAL IM PRN (08:24)
[2020-04-28] MEDS ORDERED: CARBOPROST TROMETHAMINE 250 MCG/ML AMP IM PRN (08:24)
[2020-04-28] MEDS ORDERED: TRANEXAMIC ACID 1,000 MG in SODIUM CHLORIDE 0.9% 100ML 100 ML IV PRN (08:24)
[2020-04-28] MEDS ORDERED: miSOPROStoL 200 MCG TABLET BC PRN (08:24)
[2020-04-28] MEDS ORDERED: SODIUM CHLORIDE FLUSH 0.9% 10 ML SYRINGE IVP PRN (08:24)
[2020-04-28] MEDS ORDERED: ONDANSETRON ODT 4 MG TABLET TL PRN (08:44)
[2020-04-28] MEDS ORDERED: SIMETHICONE CHEW 80 MG TABLET PO PRN (08:44)
[2020-04-28] MEDS ORDERED: HYDROCORTISONE 1% CREAM 28 GM TUBE PR PRN (08:44)
[2020-04-28] MEDS ORDERED: WITCH HAZEL/GLYCERIN 1 PAD TOP PRN (08:44)
[2020-04-28] MEDS ORDERED: SODIUM CHLORIDE FLUSH 0.9% 10 ML SYRINGE IVP SCH (09:00)
[2020-04-28] MEDS ORDERED: LACTATED RINGERS 1,000 ML IV SCH (09:00)
[2020-04-28] MEDS: ACETAMINOPHEN 500 MG TABLET PO SCH ×2 (09:10→17:54)
[2020-04-28] MEDS: IBUPROFEN 600 MG TABLET PO SCH ×3 (09:11→21:03)
[2020-04-28] MEDS: DOCUSATE SODIUM 100 MG CAPSULE PO SCH ×2 (15:07→21:03)
--- NOTE | 2020-04-28 17:21 | DELIVERY NOTE ---
Delivery Note - Labor Labor: positive: Spontaneous - Delivery Method Delivery Method: positive: Spontaneous vaginal delivery - Presentation Presentation: positive: Vertex - Nuchal Cord Nuchal Cord: positive: None - Anesthetic Anesthetic Type: - Amniotic Fluid Description Amniotic Fluid Description: positive: Clear - Episiotomy Type Episiotomy Type: positive: None - Laceration Laceration: positive: None - Delivery Outcome Delivery Outcome: positive: Livebirth - Cisco Cisco: positive: Placed in direct skin contact with mother, Suctioned, Bulb syringe, Stimulated, Warmed, Tionesta used Cisco sex: positive: Female : Apgars 8/9 - Cord Cord: positive: 3 vessels - Placenta Placenta: positive: Intact, Spontaneous - Estimated Blood Loss Estimated Blood Loss (in cc): 50 - Post Delivery Events Post Delivery Events: positive: No post delivery events - Delivery Comments (Free Text/Narrative) Delivery Comments (Free Text/Narrative): Very rapid delivery. First contraction was at 0600 and baby was out by about 0830. Delivered on hands and knees. No dystocia.
--- NOTE | 2020-04-28 17:29 | HISTORY & PHYSICAL EXAMINATION ---
History of Present Illness - History of Present Illness HPI Comment/Other: CC: need to push HPI: UC started at 0600 PMH: bipolar and ADHD, hx of asthma PSH: wisdom teeth and natasha SH: no t/e/d FH: n/c OB: , prior shoulder dystocia Allergies: seroquel Meds: PNV, vyvanse 50mg daily, wellbutrin 300mg po qhs O: Patient screaming on hands and knees Anterior lip reduced FHT by doppler in normal range Delivered shortly after A/P: 29yo G2 now P2 immediately s/p rapid delivery at term--delivered a few min after arrival and delivered only 2.5h after her 1st contraction. She does nt plan another , warned that it could go even faster next time. Rh neg, will do rhogam workup pap normal, RI, varicella s/p vax Will check to see if she got Tdap or not, if not then will offer. Continue ongoing psych meds. Baby will need 48h obs due to GBS + and no antibiotics received. History - Past Medical History Respiratory: reports: None Neuro: reports: None Endocrine/Autoimmune: reports: None GI: reports: Ulcers Psych: reports: Anxiety, Bipolar disorder, ADD/ADHD MRSA Hx?: No - Family & Social History Family History Comment/Other: neg for gallbladder disease - Substance History Use: Uses substance without health or social issues: NONE - POLST Patient has POLST: No Meds/Allgy - Home Medications Home Medications: Ambulatory Orders Medication Instructions Recorded Confirmed Lisdexamfetamine Dimesylate 12/07/19 [Vyvanse] buPROPion [Wellbutrin Sr] 150 mg PO BID 12/07/19 12/07/19 - Allergies Allergies/Adverse Reactions: Allergies Allergy/AdvReac Type Severity Reaction Status Date / Time quetiapine [From Seroquel] Allergy Unknown Verified 04/25/20 23:17 Exam - Vital Signs Vital Signs: Vital Signs x48h Temp Pulse Resp BP Pulse Ox 04/28/20 16:07 98.1 F 83 18 132/72 H 99 04/28/20 13:00 98.2 F 92 16 133/75 H 100 04/28/20 12:02 98.8 F 89 16 136/77 H 99
[2020-04-28] MEDS ORDERED: RHO(D) IMMUNE GLOBULIN 300 MCG SYRINGE IM ONE (22:15)
[2020-04-29] MEDS: ACETAMINOPHEN 500 MG TABLET PO SCH ×3 (01:58→20:01)
[2020-04-29] MEDS: IBUPROFEN 600 MG TABLET PO SCH ×4 (02:31→20:59)
[2020-04-29] MEDS: DOCUSATE SODIUM 100 MG CAPSULE PO SCH ×2 (08:46→20:59)
--- NOTE | 2020-04-29 11:15 | PROVIDER PROGRESS NOTE ---
Subjective - Subjective Subjective: S: no problems, happy, doing well. Eat, urinate, ambulate, defecate, breastfeed without problems. No heavy bleeding. No significant pain. O: aVSS, altert smiling NAD, abd soft, nt/nd, fundus NT 1cm below U, no LE edema 29yo G2 now P2 doing well PPD#1 s/p rapid delivery at term Rh neg, baby +, rhogam given pap normal, RI, varicella s/p vax Will check to see if she got Tdap or not, if not then will offer. Continue ongoing psych meds. Baby will need 48h obs due to GBS + and no antibiotics received. Objective - Vital Signs/Intake & Output Vital Signs: Vital Signs x48h Temp Pulse Pulse Resp BP Pulse Ox 04/29/20 07:42 98.2 F 87 18 126/87 H 100 04/29/20 04:31 98.6 F 84 16 125/75 99 Intake & Output: Intake & Output 04/26/20 04/27/20 04/28/20 04/29/20 23:59 23:59 23:59 23:59 Intake Total 2009 Output Total 350 Balance 1660 - Lab Results Other Labs: Lab Results x24hrs 04/28/20 Range/Units 10:34 Blood Type A NEGATIVE Weak D (Du) WEAK-D NEGATIVE Maternal Bleed NEGATIVE (NEGATIVE)
[2020-04-29] MEDS ORDERED: RHO(D) IMMUNE GLOBULIN 300 MCG SYRINGE IM ONE (16:54)
[2020-04-30] MEDS: IBUPROFEN 600 MG TABLET PO SCH ×2 (03:15→09:07)
[2020-04-30] MEDS: ACETAMINOPHEN 500 MG TABLET PO SCH (03:48)
--- NOTE | 2020-04-30 09:03 | DISCHARGE SUMMARY ---
Physician: Ngoc Magallanes MD DATE OF ADMISSION: 04/28/2020 DATE OF DISCHARGE: 04/30/2020 ADMISSION DIAGNOSES 1. Spontaneous labor at term. 2. Bipolar. 3. Blbipzuqf-lnekiph-rrsczjrxnughf disorder. DISCHARGE DIAGNOSES 1. Spontaneous labor at term. 2. Bipolar. 3. Sqrcwjayd-uenrhsa-ustcpmcvicpai disorder. OPERATIONS AND PROCEDURES: On 04/28/2020 spontaneous vaginal delivery a few minutes after arrival. This was uncomplicated. HOSPITAL COURSE: Patient delivered shortly after arrival and this was uncomplicated. , she was doing well. She is Rh negative and received RhoGAM as the baby was positive. Her mood remained very stable without any disruption. She is eating, ambulating, and urinating without difficulties. well with a good latch. No problems with pain or bleeding. She was distressed by an episode of stress incontinence leak. She was afebrile with normal vital signs. Alert and pleasant, in no apparent distress. Affect normal. Abdomen is soft, nontender, nondistended. Fundus firm, nontender, and 2 cm below the umbilicus. No lower extremity clubbing, cyanosis or edema. DISCHARGE DISPOSITION: Home. CONDITION: Good. FOLLOWUP: In 2 weeks, as already scheduled with her psychiatrist. She will continue her Vyvanse and Wellbutrin as per usual. depression and psychosis precautions given. She will follow up in 6 weeks in OB clinic. She is not planning an implant for her control. TD: 04/30/2020 08:45 MTDD
[2020-04-30] MEDS: DOCUSATE SODIUM 100 MG CAPSULE PO SCH (09:08)
[2020-04-30 09:21] VITALS: BP 129/73
--- NOTE | 2020-04-30 11:49 | Labor Flowsheet ---
Labor Flowsheet Datetime Report Generated by CPN: 04/30/2020 11:49 Datetime: 04/29/2020 11:46 VITAL SIGNS NBP Sys/Heather/Mean (mmHg): 129 : 74 : 87 Pulse: 86 Datetime: 04/29/2020 07:40 SpO2 (%): 100 Datetime: 04/28/2020 10:49 Respirations: 16 Temperature (C): 36.7 Temperature Route: Oral PAIN Pain Scale: 3 Pain Presence: Intermittent Pain Type: Burning Pain Location: Perineum Datetime: 04/28/2020 09:16 Pain Relief Measures: Comfort Measures Datetime: 04/28/2020 08:46 Pain Goal: 0 Datetime: 04/28/2020 08:25 UTERINE ACTIVITY Monitor Mode: Palpation Frequency (min): 2-3 Quality: Strong Duration (sec): 60 Pattern: Normal: <= 5 Contractions in 10 Minutes Resting Tone (Palpate): Relaxed ASSESSMENT A Monitor Mode: Doppler FHR Baseline Rate : 130 Comments: unable to assess FHR while mom in hands and knees, per ok to do doppler for heart tone s. Doppler HR 130s, heard by and RN. Per ok to DC doppler tones at this time. Pain Coping: Requesting Pain Medication or Epidural; Writhing Pain Assessment Comments: Patient request epidural - call to anesthesia placed STAGE 2 Pushing: Urge to Push; Involuntary Pushing Pushing Position: Pushing with Contractions Pushing Progress: Descent with Pushing LaborFlag: Labor Datetime: 04/28/2020 08:23 PATIENT CARE IV/Blood Work: IV Started; Labs Drawn with IV Start COMMUNICATION Communication Comments: at bedside Datetime: 04/28/2020 08:21 Patient Position/Activity: Hands-Knees Patient Care Comments: hands and knees on the bed
== END 2020-04-30 11:08 | disposition home or self-care (01) | DRG 807 ==
LOC: WFO 08:18 → FBP 08:20
PROVIDERS: ADMIT Obstetrics & Gynecology; ATTEND Obstetrics & Gynecology
PROC: 10E0XZZ Delivery of Products of Conception, External Approach (ICD-10-PCS; principal; 2020-04-28)
DX: O62.3 Precipitate labor (principal); Z37.0 Single live birth; O99.344 Other mental disorders complicating childbirth; F90.9 Attention-deficit hyperactivity disorder, unspecified type; F31.9 Bipolar disorder, unspecified; O90.89 Other complications of the puerperium, not elsewhere classified; N39.3 Stress incontinence (female) (male); O99.824 Streptococcus B carrier state complicating childbirth; O26.893 Other specified pregnancy related conditions, third trimester; Z3A.38 38 weeks gestation of pregnancy; Z67.11 Type A blood, Rh negative; Z79.899 Other long term (current) drug therapy
CPT/HCPCS: 83033; 86900; 86901; A9270; 85025

== ENCOUNTER 2020-12-27 09:23 | Emergency (ER) | payer OTHER ==
[2020-12-27 09:34] VITALS: BP 136/98
[2020-12-27] MEDS ORDERED: BACLOFEN 10 MG TABLET PO STA (09:49)
[2020-12-27] MEDS ORDERED: HYDROcod/ACETAM 5/325 MG TABLET PO STA (09:50)
[2020-12-27] MEDS ORDERED: predniSONE 20 MG TABLET PO STA (09:50)
--- NOTE | 2020-12-27 09:52 | ED Physician Documentation ---
History of Present Illness - Stated complaint Stated Complaint: NECK PX - Chief complaint Chief Complaint: General - History obtained from History obtained from: Patient - History of Present Illness Timing: Yesterday Pain level max: 7 Pain level now: 5 - Additonal information Additional information: Patient is a 30-year-old female with right-sided neck pain since yesterday, states awoke with this in the morning and is gradually worsened over the last 24 hours. Worse with movement, better with rest. Occasionally the pain does radiate down the right arm. No numbness or tingling. No possibility of . She does currently breast-feed. No trauma. No fevers. No chills. Review of Systems Ten Systems: 10 systems reviewed and negative Constitutional: denies: Fever, Chills Respiratory: denies: Cough GI: denies: Vomiting, Diarrhea : denies: Dysuria, Frequency, Hesitancy, Now EGA Skin: denies: Rash Musculoskeletal: denies: Back pain Neurologic: denies: Headache PD PAST MEDICAL HISTORY - Past Medical History Past Medical History: Yes Respiratory: None Neuro: None Endocrine/Autoimmune: None GI: Ulcers Psych: Anxiety, Bipolar disorder, ADD/ADHD - Past Surgical History Past Surgical History: No - Present Medications Home Medications: Ambulatory Orders Medication Instructions Recorded Confirmed Lisdexamfetamine Dimesylate 12/07/19 [Vyvanse] buPROPion [Wellbutrin Sr] 150 mg PO BID 12/07/19 12/07/19 Carisoprodol [Soma] 250 mg PO Q8H PRN #14 tablet 12/27/20 HYDROcod/ACETAM 5/325 [[place] 5/325] 1 - 2 ea PO Q6H PRN #14 tablet 12/27/20 predniSONE [Deltasone] 40 mg PO DAILY #10 tablet 12/27/20 - Allergies Allergies/Adverse Reactions: Allergies Allergy/AdvReac Type Severity Reaction Status Date / Time quetiapine [From Seroquel] Allergy Unknown Verified 12/27/20 09:34 - Social History Does the pt smoke?: No Smoking Status: Never smoker Does the pt drink ETOH?: No Does the pt have substance abuse?: No - Immunizations Immunizations are current?: Yes - POLST Patient has POLST: No PD ED PE NORMAL - Vitals Vital signs reviewed: Yes - General General: Alert and oriented X 3, No acute distress - HEENT HEENT: Moist mucous membranes - Neck Neck: Supple, no meningeal sign, Other (No midline tenderness to palpation. No step-off or deformity. There is paraspinal cervical spasm on the right side. No bony tenderness of the shoulder. Full range of motion of the shoulder present. Neurovascularly intact.) - Cardiac Cardiac: RRR, Strong equal pulses - Respiratory Respiratory: No respiratory distress, Clear bilaterally - Abdomen Abdomen: Soft, Non tender, Non distended - Derm Derm: Warm and dry - Neuro Neuro: Alert and oriented X 3 - Psych Psych: Normal mood, Normal affect Results - Vitals Vitals: Vital Signs - 24 hr 12/27/20 09:31 Temperature 35.8 C L Heart Rate 86 Respiratory 16 Rate Blood Pressure 136/98 H O2 Saturation 99 Oxygen O2 Source Room air PD MEDICAL DECISION MAKING - ED course Complexity details: considered differential, d/w patient ED course: 30-year-old female with a right-sided paracervical neck spasm. Possible mild amount of radiculopathy, with pain radiating to the right shoulder. Will place on pain medication, muscle relaxants and steroids for home. Soma and baclofen appear to be the safest muscle relaxants, we will prescribe Soma for home. We will also place on a short course of prednisone. Patient counseled regarding signs and symptoms for which I believe and urgent re-evaluation would be necessary. Patient with good understanding of and agreement to plan and is comfortable going home at this time This document was made in part using voice recognition software. While efforts are made to proofread this document, sound alike and grammatical errors may occur. Departure - Departure Disposition: 01 Home, Self Care Clinical Impression: Neck muscle spasm, Cervical radiculopathy Condition: Good Instructions: ED Spasm Neck No Injury, ED Cervical Radiculopathy Follow-Up: Brooke Carreno ARNP, SKIN CARE SPECIALIST-[facility] [Primary Care Provider] - Within 1 week Prescriptions: predniSONE [Deltasone] 40 mg PO DAILY #10 tablet HYDROcod/ACETAM 5/325 [[place] 5/325] 1 - 2 ea PO Q6H PRN #14 tablet PRN Reason: Pain Carisoprodol [Soma] 250 mg PO Q8H PRN #14 tablet PRN Reason: Spasms Comments: Follow-up with your doctor in 1 week for repeat evaluation. Return if you worsen. Do not drive or operate heavy machinery while taking the carisoprodol or hydrocodone. Do not drink alcohol or drive while on narcotic pain medicine. Note that many narcotic pain relievers also contain tylenol/acetaminophen. Please ensure that your total dose of acetaminophen from all sources does not exceed 3 grams (3000mg) per day. You may constipated on this medication, take a stool softener such as "Colace" twice a day while you are on it. Also recommend a tknq-pdc-cbhrdle laxative such as senna or MiraLAX any day that you do not have a bowel movement. If you received narcotic pain medication in the emergency department, do not drive or operate machinery for the next 24 hours. As you are breast-feeding, monitor your for any increased drowsiness, this is unlikely to occur, but you should monitor. Discharge Date/Time: 12/27/20 10:00
== END 2020-12-27 10:00 | disposition home or self-care (01) ==
LOC: ED 09:23
DX: M62.838 Other muscle spasm (principal); M54.12 Radiculopathy, cervical region
CPT/HCPCS: 99283; 99284; A9270; J7512

== ENCOUNTER 2021-05-16 10:25 | Emergency (ER) | payer BC, OTHER ==
[2021-05-16 11:12] LABS: MUDS CUTOFF CONCENTRATIONS CUTOFF CONC BELOW:
[2021-05-16 11:17] LABS: BILIRUBIN,URINE NEGATIVE (NEGATIVE); GLUCOSE, URINE (UA) NEGATIVE (NEGATIVE); KETONES,URINE (UA) NEGATIVE (NEGATIVE); LEUKOCYTE ESTERASE, URINE NEGATIVE (NEGATIVE); NITRITE,URINE NEGATIVE (NEGATIVE); OCCULT BLOOD,URINE NEGATIVE (NEGATIVE); PH,URINE 6.5 PH (5.0-7.5); PROTEIN,URINE NEGATIVE (NEGATIVE); UROBILINOGEN,URINE 0.2 (NORMAL) E.U./dL (NORMAL)
[2021-05-16 11:19] LABS: CLARITY,URINE CLEAR (CLEAR); HCG UR QUAL NEGATIVE
[2021-05-16 11:28] LABS: AMPHETAMINE SCREEN,URINE POSITIVE (NEGATIVE); BARBITURATE SCREEN,UR NEGATIVE (NEGATIVE); BENZODIAZEPINES SCREEN, URINE NEGATIVE (NEGATIVE); COCAINE SCREEN URINE NEGATIVE (NEGATIVE); METHADONE SCREEN, URINE NEGATIVE (NEGATIVE); METHAMPHETAMINES SCREEN, URINE NEGATIVE (NEGATIVE); OPIATE SCREEN, URINE NEGATIVE (NEGATIVE); OXYCODONE SCREEN, URINE NEGATIVE (NEGATIVE); PROPOXYPHENE SCREEN, URINE NEGATIVE (NEGATIVE); THC CANNABINOID SCREEN, URINE NEGATIVE (NEGATIVE); TRICYCLIC ANTIDEPRESSANT,URINE NEGATIVE (NEGATIVE)
[2021-05-16 11:43] LABS: BASOPHILS % (AUTO) 0.5 %; EOSINOPHILS # (AUTO) 0.3 10^3/uL (0.0-0.7); EOSINOPHILS % (AUTO) 3.6 %; HCT - HEMATOCRIT 41.1 % (37.0-47.0); HGB - HEMOGLOBIN 13.7 g/dL (12.0-16.0); LYMPHOCYTES # (AUTO) 2.1 10^3/uL (1.5-3.5); LYMPHOCYTES % (AUTO) 26.8 %; MEAN CORPUSCULAR HEMOGLOBIN 30.4 pg (27.0-31.0); MEAN CORPUSCULAR HGB CONC 33.3 g/dL (32.0-36.0); MEAN CORPUSCULAR VOLUME 91.1 fL (81.0-99.0); MEAN PLATELET VOLUME 9.1 fL (7.9-10.8); MONOCYTES # (AUTO) 0.5 10^3/uL (0.0-1.0); NEUTROPHILS # (AUTO) 4.8 10^3/uL (1.5-6.6); PLT - PLATELET COUNT 293 10^3/uL (130-450); RED BLOOD COUNT 4.51 10^6/uL (4.20-5.40); RED CELL DISTRIBUTION WIDTH 12.1 % (12.0-15.0); WHITE BLOOD COUNT 7.7 x10^3/uL (4.8-10.8)
[2021-05-16 11:59] LABS: ACETAMINOPHEN < 10 ug/mL (10-30); ALBUMIN 4.4 g/dL (3.2-5.5); ALBUMIN/GLOBULIN RATIO 1.8 (1.0-2.2); ALKALINE PHOSPHATASE 39 IU/L (42-121); ALT ALANINE AMINOTRANSFERASE 18 IU/L (10-60); AST ASPARTATE AMINOTRANSFERASE 18 IU/L (10-42); BILIRUBIN,TOTAL 0.7 mg/dL (0.2-1.0); BUN - BLOOD UREA NITROGEN 13 mg/dL (6-20); CALCIUM 9.1 mg/dL (8.5-10.3); CARBON DIOXIDE - CO2 26 mmol/L (21-32); CHLORIDE 105 mmol/L (101-111); CREATININE 0.7 mg/dL (0.4-1.0); ETOH - ETHANOL < 5.0 mg/dL; GFR - MDRD 98 (>89); GLUCOSE 145 mg/dL (70-100); LIPASE 42 U/L (22-51); POTASSIUM 3.9 mmol/L (3.5-5.0); SALICYLATE < 6.0 mg/dL; SODIUM 139 mmol/L (135-145); TOTAL PROTEIN 6.8 g/dL (6.7-8.2)
[2021-05-16] MEDS ORDERED: KETAMINE 20 MG in SODIUM CHLORIDE 0.9% 100ML 100 ML IV STA (12:10)
[2021-05-16] MEDS ORDERED: LORazepam 2 MG/ML VIAL IVP STA (12:10)
--- NOTE | 2021-05-16 12:14 | ED Physician Documentation ---
PD HPI MHE - Stated complaint Stated Complaint: MHE - Chief complaint Chief Complaint: MHE - History obtained from History obtained from: Patient - Additional information Additional information: 30-year-old woman with bipolar 2 disorder depression and anxiety as well as some OCD tendencies with a history of self cutting although has not in about 40 days presents with increased depression and suicidal ideation and not feeling safe this morning. She has no active plan for suicidal ideation but admits to taking 1400 mg of ibuprofen last night. She does not want be hospitalized. Review of Systems Constitutional: reports: Reviewed and negative Eyes: reports: Reviewed and negative Ears: reports: Reviewed and negative Nose: reports: Reviewed and negative PD PAST MEDICAL HISTORY - Past Medical History Respiratory: None Neuro: None Endocrine/Autoimmune: None GI: Ulcers Psych: Anxiety, Bipolar disorder, ADD/ADHD - Past Surgical History Past Surgical History: No - Present Medications Home Medications: Ambulatory Orders Medication Instructions Recorded Confirmed Lisdexamfetamine Dimesylate 70 mg PO DAILY 12/07/19 [Vyvanse] buPROPion [Wellbutrin Sr] 450 mg PO DAILY 12/07/19 12/07/19 LORazepam [Ativan] 0.5 mg PO PRN PRN 05/16/21 05/16/21 Lurasidone HCl [Latuda] 40 mg PO DAILY 05/16/21 05/16/21 Venlafaxine [Effexor] 75 mg PO DAILY 05/16/21 05/16/21 - Allergies Allergies/Adverse Reactions: Allergies Allergy/AdvReac Type Severity Reaction Status Date / Time quetiapine [From Seroquel] Allergy Unknown Verified 05/16/21 10:49 - Social History Does the pt smoke?: No Smoking Status: Never smoker Does the pt drink ETOH?: No Does the pt have substance abuse?: No - Immunizations Immunizations are current?: Yes - POLST Patient has POLST: No PD ED PE NORMAL - Vitals Vital signs reviewed: Yes - General General: Alert and oriented X 3, No acute distress - Neuro Neuro: Alert and oriented X 3, No motor deficit, No sensory deficit, Normal speech - Psych Psych: Other (Mildly poor eye contact but generally normal affect otherwise.) Results - Vitals Vitals: Vital Signs - 24 hr 05/16/21 05/16/21 05/16/21 10:44 13:15 13:33 Temperature 36.0 C L Heart Rate 95 113 H 107 H Respiratory 14 15 13 Rate Blood Pressure 150/100 H 151/110 H 144/100 H O2 Saturation 97 97 100 Oxygen O2 Source Room air - Labs Labs: Laboratory Tests 05/16/21 05/16/21 05/16/21 11:03 11:36 11:36 WBC 7.7 RBC 4.51 Hgb 13.7 Hct 41.1 MCV 91.1 MCH 30.4 MCHC 33.3 RDW 12.1 Plt Count 293 MPV 9.1 Neut # (Auto) 4.8 Lymph # (Auto) 2.1 [place] # (Auto) 0.5 Eos # (Auto) 0.3 Baso # (Auto) 0.0 Absolute Nucleated RBC 0.00 Nucleated RBC % 0.0 Sodium 139 Potassium 3.9 Chloride 105 Carbon Dioxide 26 Anion Gap 8.0 BUN 13 Creatinine 0.7 Estimated GFR (MDRD) 98 Glucose 145 H Calcium 9.1 Total Bilirubin 0.7 AST 18 ALT 18 Alkaline Phosphatase 39 L Total Protein 6.8 Albumin 4.4 Globulin 2.4 Albumin/Globulin Ratio 1.8 Lipase 42 TSH Urine Color YELLOW Urine Clarity CLEAR Urine pH 6.5 Ur Specific [place] 1.025 Urine Protein NEGATIVE Urine Glucose (UA) NEGATIVE Urine Ketones NEGATIVE Urine Occult Blood NEGATIVE Urine Nitrite NEGATIVE Urine Bilirubin NEGATIVE Urine Urobilinogen 0.2 (NORMAL) Ur Leukocyte Esterase NEGATIVE Ur Microscopic Review NOT INDICATED Urine Culture Comments NOT INDICATED Urine HCG, Qual NEGATIVE Salicylates < 6.0 Urine Opiates Screen NEGATIVE Ur Oxycodone Screen NEGATIVE Urine Methadone Screen NEGATIVE Ur Propoxyphene Screen NEGATIVE Acetaminophen < 10 L Ur Barbiturates Screen NEGATIVE Ur Tricyclics Screen NEGATIVE Ur Phencyclidine Scrn NEGATIVE Ur Amphetamine Screen POSITIVE H U Methamphetamines Scrn NEGATIVE U Benzodiazepines Scrn NEGATIVE Urine Cocaine Screen NEGATIVE U Cannabinoids Screen NEGATIVE Ethyl Alcohol < 5.0 05/16/21 11:36 WBC RBC Hgb Hct MCV MCH MCHC RDW Plt Count MPV Neut # (Auto) Lymph # (Auto) [place] # (Auto) Eos # (Auto) Baso # (Auto) Absolute Nucleated RBC Nucleated RBC % Sodium Potassium Chloride Carbon Dioxide Anion Gap BUN Creatinine Estimated GFR (MDRD) Glucose Calcium Total Bilirubin AST ALT Alkaline Phosphatase Total Protein Albumin Globulin Albumin/Globulin Ratio Lipase TSH 0.60 Urine Color Urine Clarity Urine pH Ur Specific [place] Urine Protein Urine Glucose (UA) Urine Ketones Urine Occult Blood Urine Nitrite Urine Bilirubin Urine Urobilinogen Ur Leukocyte Esterase Ur Microscopic Review Urine Culture Comments Urine HCG, Qual Salicylates Urine Opiates Screen Ur Oxycodone Screen Urine Methadone Screen Ur Propoxyphene Screen Acetaminophen Ur Barbiturates Screen Ur Tricyclics Screen Ur Phencyclidine Scrn Ur Amphetamine Screen U Methamphetamines Scrn U Benzodiazepines Scrn Urine Cocaine Screen U Cannabinoids Screen Ethyl Alcohol PD MEDICAL DECISION MAKING - ED course ED course: 30-year-old woman with bipolar 2 presents with increased depression and suicidal ideation, no current plan. She declined hospitalization. Discussed options and after discussion she was administered ketamine drip, 20 mg over an hour. She had the usual side effects which were blunted with pretreatment with a small amount of IV Ativan and felt better emotionally after the completion of the infusion. Departure - Departure Disposition: 01 Home, Self Care Clinical Impression: Depression Qualifiers: Depression Type: major depressive disorder Major depression recurrence: recurrent Active/Remission status: currently active Major depression episode severity: moderate Qualified Code(s): F33.1 - Major depressive disorder, recurrent, moderate Condition: Good Record reviewed to determine appropriate education?: Yes Instructions: ED Depression Comments: Return anytime if worsening or if you decide you need hospitalization, Follow-up with your psychiatrist and therapist this coming week.
[2021-05-16] MEDS ORDERED: ONDANSETRON 4 MG/2 ML VIAL IVP STA (13:43)
[2021-05-16 14:32] VITALS: BP 124/76
== END 2021-05-16 14:36 | disposition home or self-care (01) ==
LOC: ED 10:25
DX: F33.1 Major depressive disorder, recurrent, moderate (principal); R45.851 Suicidal ideations
CPT/HCPCS: 36415; 80053; 80306; 80307; 80320; 80329; 81003; 81025; 83690; 84443; 85025; 96365; 96375; 99283; 99285; J2060; 81001; 87086

== ENCOUNTER 2021-06-24 11:58 | Emergency (ER) | payer BC, OTHER ==
[2021-06-24] MEDS ORDERED: KETAMINE 30 MG in SODIUM CHLORIDE 0.9% 100ML 100 ML IV STA (13:53)
--- NOTE | 2021-06-24 13:59 | ED Physician Documentation ---
PD HPI MHE - Stated complaint Stated Complaint: SI - Chief complaint Chief Complaint: MHE - History obtained from History obtained from: Patient - History of Present Illness Primary symptom: Suicidal ideation - Additional information Additional information: Pt presents w/ suicidal ideation stating "I feel like hurting myself." She states that she "definitely has a plan" but doesn't feel comfortable talking to me or SW about it. She has struggled w/ depression and SI in the past and is followed by psychiatrist and therapist. She is on Vyvanse, Wellbutrin, Effexor, Latuda, and prn Lorazepam. She states about 6 weeks ago she was here and had a ketamine infusion per Dr. Chowdary and that it helped her for almost a month. She states she had never had such a positive reaction to any treatment she's had in the past and would like to try this again. She is looking for outpatient clinics to go to but hasn't arranged one yet. She has not required inpatient psych in the past. Review of Systems Ten Systems: 10 systems reviewed and negative Psychiatric: reports: Depressed, Suicidal PD PAST MEDICAL HISTORY - Past Medical History Past Medical History: Yes Respiratory: None Neuro: None Endocrine/Autoimmune: None GI: Ulcers Psych: Anxiety, Bipolar disorder, ADD/ADHD - Past Surgical History Past Surgical History: No - Present Medications Home Medications: Ambulatory Orders Medication Instructions Recorded Confirmed Lisdexamfetamine Dimesylate 70 mg PO DAILY 12/07/19 06/24/21 [Vyvanse] buPROPion [Wellbutrin Sr] 450 mg PO DAILY 12/07/19 06/24/21 LORazepam [Ativan] 0.5 mg PO PRN PRN 05/16/21 06/24/21 Lurasidone HCl [Latuda] 60 mg PO DAILY 05/16/21 06/24/21 Venlafaxine [Effexor] 75 mg PO DAILY 05/16/21 06/24/21 - Allergies Allergies/Adverse Reactions: Allergies Allergy/AdvReac Type Severity Reaction Status Date / Time quetiapine [From Seroquel] Allergy Unknown Verified 06/24/21 12:14 - Social History Does the pt smoke?: No Smoking Status: Never smoker Does the pt drink ETOH?: No Does the pt have substance abuse?: No - Immunizations Immunizations are current?: Yes - POLST Patient has POLST: No PD ED PE NORMAL - Vitals Vital signs reviewed: Yes - General General: Alert and oriented X 3, No acute distress, Well developed/nourished - HEENT HEENT: Atraumatic, PERRL, Moist mucous membranes, Pharynx benign - Neck Neck: Supple, no meningeal sign, No JVD - Cardiac Cardiac: RRR, No murmur, No gallop, No rub - Respiratory Respiratory: No respiratory distress, Clear bilaterally - Abdomen Abdomen: Normal bowel sounds, Soft, Non tender, Non distended - Neuro Neuro: Alert and oriented X 3, No motor deficit, No sensory deficit, Normal speech Eye Opening: Spontaneous Motor: Obeys Commands Verbal: Oriented GCS Score: 15 - Psych Psych: Normal mood, Normal affect Results - Vitals Vitals: Vital Signs - 24 hr 06/24/21 06/24/21 12:15 14:28 Temperature 37.1 C 37 C Heart Rate 100 91 Respiratory 18 18 Rate Blood Pressure 145/85 H 115/74 O2 Saturation 99 100 Oxygen O2 Source Room air PD MEDICAL DECISION MAKING - ED course Complexity details: reviewed old records, d/w patient ED course: Pt presented w/ thoughts of self harm and was requesting a ketamine infusion as it was very helpful for her in the past. She declined to elaborate on her SI with me, and intends to continue following up with her therapist and psychiatrist, and her primary reason for visit today is for ketamine infusion. She did not desire hospitalization. She contracted verbally for safety and feels the ketamine infusion will help her immensely as it did last time. Ketamine infusion was administered and pt tolerated well. She will be discharged home and was advised to see therapist within 1 week. She was advised she may return to the ER at anytime if she had ongoing thoughts of self harm or desired hospitalization for mental health reasons. Departure - Departure Disposition: 01 Home, Self Care Clinical Impression: Depressive disorder Instructions: ED Stress React, ED Depression Comments: You presented with thoughts of self harm and requested a ketamine infusion which was helpful for you in the past. You received a ketamine infusion here. Please continue fup w/ your primary doctor, psychiatrist, and therapist. Utilize crisis resources or return to the ER if recurrent suicidal ideation .
[2021-06-24 16:27] VITALS: BP 140/95
== END 2021-06-24 16:35 | disposition home or self-care (01) ==
LOC: ED 11:58
DX: F32.9 Major depressive disorder, single episode, unspecified (principal)
CPT/HCPCS: 96365; 99283

== ENCOUNTER 2021-08-23 17:34 | Emergency (ER) | payer BC, OTHER ==
[2021-08-23 17:49] VITALS: BP 137/79
--- NOTE | 2021-08-23 18:34 | ED Physician Documentation ---
History of Present Illness - Stated complaint Stated Complaint: SWOLLEN LIP - Chief complaint Chief Complaint: Laceration - History obtained from History obtained from: Patient (Her infant inadvertently head butted her and she split her lip on her own tooth. No other injuries. Pain is mild.) Review of Systems Constitutional: reports: Reviewed and negative Eyes: reports: Reviewed and negative Ears: reports: Reviewed and negative Nose: reports: Reviewed and negative PD PAST MEDICAL HISTORY - Past Medical History Respiratory: None Neuro: None Endocrine/Autoimmune: None GI: Ulcers Psych: Anxiety, Bipolar disorder, ADD/ADHD - Past Surgical History Past Surgical History: No - Present Medications Home Medications: Ambulatory Orders Medication Instructions Recorded Confirmed Lisdexamfetamine Dimesylate 70 mg PO DAILY 12/07/19 06/24/21 [Vyvanse] buPROPion [Wellbutrin Sr] 450 mg PO DAILY 12/07/19 06/24/21 LORazepam [Ativan] 0.5 mg PO PRN PRN 05/16/21 06/24/21 Lurasidone HCl [Latuda] 60 mg PO DAILY 05/16/21 06/24/21 Venlafaxine [Effexor] 75 mg PO DAILY 05/16/21 06/24/21 Amox/Clav 875/125 [Augmentin] 1 each PO Q12H #7 tablet 08/23/21 - Allergies Allergies/Adverse Reactions: Allergies Allergy/AdvReac Type Severity Reaction Status Date / Time quetiapine [From Seroquel] Allergy Unknown Verified 08/23/21 17:47 - Social History Does the pt smoke?: No Smoking Status: Never smoker Does the pt drink ETOH?: No Does the pt have substance abuse?: No - Immunizations Immunizations are current?: Yes - POLST Patient has POLST: No PD ED PE NORMAL - Vitals Vital signs reviewed: Yes - General General: Alert and oriented X 3, No acute distress - HEENT HEENT: Other (There is a 1 cm laceration from a tooth to the lower lip just to the right of midline. No loose teeth. Moderate dentition.) - Neck Neck: Supple, no meningeal sign, No bony TTP - Neuro Neuro: Alert and oriented X 3, Normal speech Results - Vitals Vitals: Vital Signs - 24 hr 08/23/21 17:47 Temperature 36.5 C Heart Rate 81 Respiratory 16 Rate Blood Pressure 137/79 H O2 Saturation 99 Oxygen O2 Source Room air Departure - Departure Disposition: 01 Home, Self Care Clinical Impression: Puncture wound of lip Qualifiers: Encounter type: initial encounter Qualified Code(s): S01.531A - Puncture wound without foreign body of lip, initial encounter Condition: Good Record reviewed to determine appropriate education?: Yes Instructions: ED Laceration Mouth Prescriptions: Amox/Clav 875/125 [Augmentin] 1 each PO Q12H #7 tablet Comments: Return if you worsen, develop increased pain or swelling or fevers.
[2021-08-23] MEDS: AMOX/CLAV 875 MG/125 MG TABLET PO STA (18:37)
== END 2021-08-23 18:38 | disposition home or self-care (01) ==
LOC: ED 17:34
DX: S01.531A Puncture wound without foreign body of lip, initial encounter (principal); W50.0XXA Accidental hit or strike by another person, initial encounter
CPT/HCPCS: 99282; 99283; A9270

== ENCOUNTER 2021-10-16 08:25 | Emergency (ER) | payer OTHER ==
--- NOTE | 2021-10-16 09:10 | ED Physician Documentation ---
PD HPI MHE - Stated complaint Stated Complaint: SI - Chief complaint Chief Complaint: MHE - History obtained from History obtained from: Patient - History of Present Illness Primary symptom: Suicidal ideation (with plan of noxious inhalation.), Depression, Other (had had signifciant improvement with ketamine infusion twice in the past, last being about 3 months ago, with blunting of the depressed/suic idal ideation for over 2 months. SHe is asking for dose of that again, if I were agreeable.). No: Suicide attempt, Off meds, Out of meds Timing - onset: How many days ago (history of depression with suicidal thoughts often, and not unusual to have a particular plan, per patient. She states she has not done any self-harm behaviors since about age 14, none since. Does have psychiatrist and regular counselor.) Contributing factors: No: Work, Legal, Substance abuse - ETOH, Substance abuse - drugs Similar symptoms before: Diagnosis (long standing depression with suicidal ideation.) Recently seen: Clinic (seen by her counselor weekly and psychiatrist every 2 weeks.), Emergency Dept (3 months ago and a month prior to that.). No: Admitted Review of Systems Constitutional: denies: Fever, Chills Nose: denies: Rhinorrhea / runny nose, Congestion Throat: denies: Sore throat Respiratory: denies: Cough Skin: denies: Abrasion (s), Laceration (s) Musculoskeletal: denies: Neck pain, Back pain Neurologic: denies: Generalized weakness, Headache, Head injury Psychiatric: reports: Depressed, Suicidal (ideation and plan without action. She states she has too much to look forward to with her family/spouse.). denies: Homicidal, Anxiety, Insomnia Endocrine: denies: Weight loss, Weight gain PD PAST MEDICAL HISTORY - Past Medical History Past Medical History: Yes Cardiovascular: None Respiratory: None Neuro: None Endocrine/Autoimmune: None GI: Ulcers Psych: Depression, Anxiety, Bipolar disorder, ADD/ADHD - Past Surgical History Past Surgical History: No - Present Medications Home Medications: Ambulatory Orders Medication Instructions Recorded Confirmed Lisdexamfetamine Dimesylate 70 mg PO DAILY 12/07/19 10/16/21 [Vyvanse] buPROPion [Wellbutrin Sr] 450 mg PO DAILY 12/07/19 10/16/21 Lurasidone HCl [Latuda] 60 mg PO DAILY 05/16/21 10/16/21 Venlafaxine [Effexor] 75 mg PO DAILY 05/16/21 10/16/21 - Allergies Allergies/Adverse Reactions: Allergies Allergy/AdvReac Type Severity Reaction Status Date / Time quetiapine [From Seroquel] Allergy Unknown Verified 10/16/21 08:46 - Social History Does the pt smoke?: No Smoking Status: Never smoker Does the pt drink ETOH?: No Does the pt have substance abuse?: No - Immunizations Immunizations are current?: Yes - POLST Patient has POLST: No PD ED PE NORMAL - Vitals Vital signs reviewed: Yes - General General: Alert and oriented X 3, No acute distress, Well developed/nourished - HEENT HEENT: PERRL, EOMI - Neck Neck: Supple, no meningeal sign, No adenopathy, Thyroid normal - Cardiac Cardiac: RRR, No murmur - Respiratory Respiratory: Clear bilaterally - Abdomen Abdomen: Soft, Non tender - Derm Derm: Normal color, Warm and dry - Neuro Neuro: Alert and oriented X 3, No motor deficit, Normal speech - Psych Psych: Normal mood, Normal affect Results - Vitals Vitals: Vital Signs - 24 hr 10/16/21 10/16/21 10/16/21 08:40 09:55 10:24 Temperature 36.0 C L Heart Rate 105 H 89 109 H Respiratory 16 14 18 Rate Blood Pressure 150/96 H 118/74 113/79 O2 Saturation 100 100 100 10/16/21 11:11 Temperature Heart Rate 99 Respiratory 16 Rate Blood Pressure 119/84 H O2 Saturation 100 Oxygen O2 Source Room air - Labs Labs: Laboratory Tests 10/16/21 10/16/21 10/16/21 09:35 09:35 09:35 WBC 7.8 RBC 4.42 Hgb 13.3 Hct 39.2 MCV 88.7 MCH 30.1 MCHC 33.9 RDW 12.5 Plt Count 264 MPV 9.3 Neut # (Auto) 4.5 Lymph # (Auto) 2.3 [place] # (Auto) 0.6 Eos # (Auto) 0.3 Baso # (Auto) 0.1 Absolute Nucleated RBC 0.00 Nucleated RBC % 0.0 Sodium 138 Potassium 4.1 Chloride 104 Carbon Dioxide 25 Anion Gap 9.0 BUN 13 Creatinine 0.7 Estimated GFR (MDRD) 97 Glucose 97 Calcium 8.9 Total Bilirubin 0.3 AST 17 ALT 16 Alkaline Phosphatase 38 L Total Protein 7.0 Albumin 4.3 Globulin 2.7 Albumin/Globulin Ratio 1.6 Lipase 40 Urine Opiates Screen NEGATIVE Ur Oxycodone Screen NEGATIVE Urine Methadone Screen NEGATIVE Ur Propoxyphene Screen NEGATIVE Ur Barbiturates Screen NEGATIVE Ur Tricyclics Screen NEGATIVE Ur Phencyclidine Scrn NEGATIVE Ur Amphetamine Screen POSITIVE H U Methamphetamines Scrn NEGATIVE U Benzodiazepines Scrn NEGATIVE Urine Cocaine Screen NEGATIVE U Cannabinoids Screen NEGATIVE PD MEDICAL DECISION MAKING - ED course Complexity details: reviewed old records, considered differential (she has suicidal ideation but states would not act on it, and has good forward thinking regarding kids and spouse. Has appt regularly with counselor and psychiatrist. She is asking about repeating the ketamine infusion. l), d/w patient ED course: I think it reasonable to give the low dose depression based IV infusion. SHe had had good positive results from it that were sustained for 1- 2 1/2 months. Was trying to have her psychiatrist set it up for outpatient infusion, but still a work in progress. Departure - Departure Disposition: 01 Home, Self Care Clinical Impression: Suicidal ideation Depression Qualifiers: Depression Type: unspecified Qualified Code(s): F32.A - Depression, unspecified Condition: Stable Record reviewed to determine appropriate education?: Yes Instructions: ED Depression Comments: Up with your primary care and your psychiatrist and counseling as usual. Continue usual medications. Hopefully this dose of ketamine will have a similar effect to what it had last time with blunting of your symptoms for a month or 2 or better. You were given 30 mg of ketamine IV and 100 mL of saline over 40 minutes. This is low-dose and intended as an antidepressant effect. Return as needed. Call the crisis line if you need someone to talk with. Discharge Date/Time: 10/16/21 11:34
[2021-10-16] MEDS ORDERED: KETAMINE 30 MG in SODIUM CHLORIDE 0.9% 100ML 100 ML IV STA (09:30)
[2021-10-16] MEDS ORDERED: LORazepam 2 MG/ML VIAL IVP STA (09:31)
[2021-10-16] MEDS ORDERED: SODIUM CHLORIDE 0.9% 1,000 ML IV STA (09:32)
[2021-10-16 09:39] LABS: MUDS CUTOFF CONCENTRATIONS CUTOFF CONC BELOW:
[2021-10-16 09:50] LABS: BASOPHILS # (AUTO) 0.1 10^3/uL (0.0-0.1); BASOPHILS % (AUTO) 0.6 %; EOSINOPHILS # (AUTO) 0.3 10^3/uL (0.0-0.7); EOSINOPHILS % (AUTO) 3.7 %; HCT - HEMATOCRIT 39.2 % (37.0-47.0); HGB - HEMOGLOBIN 13.3 g/dL (12.0-16.0); LYMPHOCYTES # (AUTO) 2.3 10^3/uL (1.5-3.5); LYMPHOCYTES % (AUTO) 29.7 %; MEAN CORPUSCULAR HEMOGLOBIN 30.1 pg (27.0-31.0); MEAN CORPUSCULAR HGB CONC 33.9 g/dL (32.0-36.0); MEAN CORPUSCULAR VOLUME 88.7 fL (81.0-99.0); MEAN PLATELET VOLUME 9.3 fL (7.9-10.8); MONOCYTES # (AUTO) 0.6 10^3/uL (0.0-1.0); MONOCYTES % (AUTO) 7.2 %; NEUTROPHILS # (AUTO) 4.5 10^3/uL (1.5-6.6); NEUTROPHILS % (AUTO) 58.4 %; PLT - PLATELET COUNT 264 10^3/uL (130-450); RED BLOOD COUNT 4.42 10^6/uL (4.20-5.40); RED CELL DISTRIBUTION WIDTH 12.5 % (12.0-15.0); WHITE BLOOD COUNT 7.8 x10^3/uL (4.8-10.8)
[2021-10-16 09:59] LABS: ALBUMIN 4.3 g/dL (3.2-5.5); ALBUMIN/GLOBULIN RATIO 1.6 (1.0-2.2); BILIRUBIN,TOTAL 0.3 mg/dL (0.2-1.0); CALCIUM 8.9 mg/dL (8.5-10.3); CREATININE 0.7 mg/dL (0.4-1.0); POTASSIUM 4.1 mmol/L (3.5-5.0)
[2021-10-16 10:03] LABS: AMPHETAMINE SCREEN,URINE POSITIVE (NEGATIVE); BARBITURATE SCREEN,UR NEGATIVE (NEGATIVE); BENZODIAZEPINES SCREEN, URINE NEGATIVE (NEGATIVE); COCAINE SCREEN URINE NEGATIVE (NEGATIVE); METHADONE SCREEN, URINE NEGATIVE (NEGATIVE); METHAMPHETAMINES SCREEN, URINE NEGATIVE (NEGATIVE); OPIATE SCREEN, URINE NEGATIVE (NEGATIVE); OXYCODONE SCREEN, URINE NEGATIVE (NEGATIVE); PROPOXYPHENE SCREEN, URINE NEGATIVE (NEGATIVE); THC CANNABINOID SCREEN, URINE NEGATIVE (NEGATIVE); TRICYCLIC ANTIDEPRESSANT,URINE NEGATIVE (NEGATIVE)
[2021-10-16 11:12] VITALS: BP 119/84
== END 2021-10-16 11:34 | disposition home or self-care (01) ==
LOC: ED 08:25
DX: R45.851 Suicidal ideations (principal); F32.A Depression, unspecified
CPT/HCPCS: 36415; 80053; 80306; 83690; 85025; 96374; 99283; J2060

== ENCOUNTER 2021-10-22 18:57 | Emergency (ER) | payer OTHER ==
[2021-10-22 21:00] LABS: CALCIUM 8.7 mg/dL (8.5-10.3); CREATININE 0.8 mg/dL (0.4-1.0); POTASSIUM 3.6 mmol/L (3.5-5.0)
--- NOTE | 2021-10-22 21:04 | XRAY Report ---
PROCEDURE: Chest 1 View X-Ray INDICATIONS: chest pain TECHNIQUE: One view of the chest was acquired. COMPARISON: None. FINDINGS: Surgical changes and devices: None. Lungs and pleura: No pleural effusions or pneumothorax. Lungs are clear. Mediastinum: Mediastinal contours appear normal. Heart size is normal. Bones and chest wall: No suspicious bony lesions. Overlying soft tissues appear unremarkable. IMPRESSION: No acute cardiopulmonary pathology. Reviewed by: Earnest Cheatham MD on 10/22/2021 9:03 PM [facility] Approved by: Earnest Cheatham MD on 10/22/2021 9:03 PM [facility] Station ID: [id number]
--- NOTE | 2021-10-22 21:09 | ED Physician Documentation ---
History of Present Illness - Stated complaint Stated Complaint: CHEST PX - Chief complaint Chief Complaint: Cardiac - Additonal information Additional information: 31-year-old female presents emergency department for evaluation of a sharp and nonradiating chest pain. She has had this intermittently and occasionally in the past but today it has become more persistent. Nonexertional, no nausea or vomiting. Not pleuritic. She is breast-feeding. No recent surgery or immobilization. No unilateral leg swelling. No history of blood clots or cancer. She is not on any oral hormonal contraceptives. , No fevers,No family history of sudden early cardiac . No nausea or vomiting. No headache. No shortness of air. Meds: Vyvanse Review of Systems Constitutional: denies: Fever, Chills Eyes: reports: Reviewed and negative Nose: reports: Reviewed and negative Throat: denies: Dental pain / toothache, Oral lesions / sores, Sore throat, Swollen tonsils, Swallowed foreign body, Reviewed and negative, Other Cardiac: reports: Chest pain / pressure. denies: Palpitations, Pedal edema, Calf pain Respiratory: denies: Dyspnea, Cough GI: denies: Abdominal Pain, Nausea, Vomiting : denies: Dysuria, Frequency, Hesitancy, Unable to Void PD PAST MEDICAL HISTORY - Past Medical History Cardiovascular: None Respiratory: None Neuro: None Endocrine/Autoimmune: None GI: Ulcers Psych: Depression, Anxiety, Bipolar disorder, ADD/ADHD - Past Surgical History Past Surgical History: No - Present Medications Home Medications: Ambulatory Orders Medication Instructions Recorded Confirmed Lisdexamfetamine Dimesylate 70 mg PO DAILY 12/07/19 10/16/21 [Vyvanse] buPROPion [Wellbutrin Sr] 450 mg PO DAILY 12/07/19 10/16/21 Lurasidone HCl [Latuda] 60 mg PO DAILY 05/16/21 10/16/21 Venlafaxine [Effexor] 75 mg PO DAILY 05/16/21 10/16/21 - Allergies Allergies/Adverse Reactions: Allergies Allergy/AdvReac Type Severity Reaction Status Date / Time quetiapine [From Seroquel] Allergy Unknown Verified 10/22/21 19:12 - Social History Does the pt smoke?: No Smoking Status: Never smoker Does the pt drink ETOH?: No Does the pt have substance abuse?: No - Immunizations Immunizations are current?: Yes - POLST Patient has POLST: No PD ED PE NORMAL - General General: Alert and oriented X 3, No acute distress - HEENT HEENT: Atraumatic, Moist mucous membranes - Neck Neck: Supple, no meningeal sign, No adenopathy - Cardiac Cardiac: RRR, No murmur - Respiratory Respiratory: No respiratory distress, Clear bilaterally - Abdomen Abdomen: Normal bowel sounds, Soft, Non tender, Non distended - Back Back: No CVA TTP, No spinal TTP - Derm Derm: Normal color, Warm and dry, No rash - Extremities Extremities: No deformity, No tenderness to palpate - Neuro Neuro: Alert and oriented X 3, director of clinical applications 2-12 intact Eye Opening: Spontaneous Motor: Obeys Commands Verbal: Oriented GCS Score: 15 Results - Vitals Vitals: Vital Signs - 24 hr 10/22/21 10/22/21 10/22/21 19:04 19:28 21:12 Temperature 36.3 C L 36.5 C Heart Rate 80 80 77 Respiratory 16 16 14 Rate Blood Pressure 127/83 H 127/83 H 106/77 O2 Saturation 98 98 100 Oxygen O2 Source Room air - EKG (time done) 1905 Rate: Rate (enter#) (77) Rhythm: NSR [place]: Normal Intervals: Normal IN QRS: Normal Ischemia: Normal ST segments Compare to prior EKG: Old EKG unavailable Computer interpretation: Agree with computer - Labs Labs: Laboratory Tests 10/22/21 10/22/21 20:42 20:42 Sodium 135 Potassium 3.6 Chloride 101 Carbon Dioxide 27 Anion Gap 7.0 BUN 14 Creatinine 0.8 Estimated GFR (MDRD) 83 L Glucose 99 Calcium 8.7 Troponin I High Sens < 2.3 L - Rads (name of study) CXR Radiology: Final report received (No acute cardiopulmonary pathology.) PD MEDICAL DECISION MAKING - ED course Complexity details: reviewed results, re-evaluated patient, considered differential, d/w patient ED course: 31-year-old female presents emergency department for evaluation of brief sharp stabbing chest pain that does not radiate. Has had this occasionally in the past but has become more persistent today. Not pleuritic. She is PERC and Wells criteria negative. Screening EKG is nonischemic with negative troponin. Chest x-ray does not show any acute focal opacities or findings of pneumothorax. Patient is on long-term Vyvanse use. I have advised her to have close follow-up with primary care provider. May benefit from outpatient echocardiogram. Emergent return precautions were discussed for worsening symptoms, fainting fevers or sudden severe shortness of air. Departure - Departure Disposition: 01 Home, Self Care Clinical Impression: Chest pain Qualifiers: Chest pain type: unspecified Qualified Code(s): R07.9 - Chest pain, unspecified Condition: Stable Instructions: ED Chest Pain [facility] Comments: You were seen today in the emergency department for chest pain. Your screening EKG is normal. Your chest x-ray did not show any worrisome findings. Your screening labs including a troponin are also essentially normal. The cause of this chest pain is not clear though I think given your history of long-term Vyvanse use it is important to discuss this with your primary care doctor. You may benefit from referral for outpatient echocardiogram. If it any point you find that you have sudden severe chest pain, any fainting episodes, develop leg swelling or are severely short of breath and please return immediately to the ER for second evaluation.
[2021-10-22 21:15] VITALS: BP 106/77
== END 2021-10-22 21:47 | disposition home or self-care (01) ==
LOC: ED 18:57
DX: R07.9 Chest pain, unspecified (principal)
CPT/HCPCS: 36415; 80048; 84484; 93005; 99283; 99284

== ENCOUNTER 2021-11-02 14:13 | Outpatient (CLI) | payer OTHER ==
--- NOTE | 2021-11-02 15:04 | XRAY Report ---
PROCEDURE: Lumbar Spine Complete INDICATIONS: ACQUIRED SPONDYLOLISTHESIS OF LUMBOSACRAL REGION TECHNIQUE: 4 views of the lumbar spine were acquired. COMPARISON: None. FINDINGS: L-SPINE: No acute displaced fracture or malalignment. Mild dextrocurvature of the lumbar spine. The v ertebral body heights are maintained. The disc space heights are maintained. Facet arthrosis, most p rominent at L5-S1. The sacroiliac joints appear patent. SOFT TISSUES: No focal abnormality. An intrauterine device is noted. IMPRESSION: 1.No acute osseous abnormality of the lumbar spine. Reviewed by: Sae Marrero MD on 11/02/2021 3:03 PM PST Approved by: Sae Marrero MD on 11/02/2021 3:03 PM [facility] Station ID: [id number]
== END 2021-11-02 14:14 | disposition home or self-care (01) ==
LOC: DI 14:13
PROVIDERS: ATTEND Neurological Surgery
DX: M43.17 Spondylolisthesis, lumbosacral region (principal)

== ENCOUNTER 2021-11-04 13:42 | Emergency (ER) | payer OTHER ==
--- NOTE | 2021-11-04 13:54 | ED Physician Documentation ---
PD HPI BACK PAIN - Stated complaint Stated Complaint: BACJ PAIN - History obtained from History obtained from: Patient - History of Present Illness Timing - onset: How many days ago (2) Timing - duration: Days (2) Timing - details: Gradual onset, Still present, Waxing and waning Location: Lower, Right Quality: Pain, Spasm Associated symptoms: No: Fever, Weakness, Numbness, Incontinent of urine Improves with: Rest. No: Meds Worsened by: Movement, Palpation Contributing factors: Other (History of herniated disc at the L5-S1 level with local pain and some radicular symptoms add a 3-4 out of 10 baseline. She states the past 2 days pain is at 7 out of 10 without any obvious provocation.). No: Lifting, Twisting Similar symptoms before: Diagnosis (HNP with nerve root irritation.) Recently seen: Clinic (She is gotten a referral to a neurosurgeon who does spine recently and is being evaluated for potential surgery. She is currently getting approval for repeat imaging of her back.) Review of Systems Constitutional: denies: Fever, Chills Nose: denies: Rhinorrhea / runny nose, Congestion Throat: denies: Sore throat Respiratory: denies: Cough GI: denies: Abdominal Pain, Vomiting, Diarrhea : denies: Dysuria Skin: denies: Rash, Lesions Neurologic: denies: Focal weakness, Numbness PD PAST MEDICAL HISTORY - Past Medical History Cardiovascular: None Respiratory: None Neuro: None Endocrine/Autoimmune: None GI: Ulcers Psych: Depression, Anxiety, Bipolar disorder, ADD/ADHD Musculoskeletal: Chronic back pain - Past Surgical History Past Surgical History: No - Present Medications Home Medications: Ambulatory Orders Medication Instructions Recorded Confirmed Lisdexamfetamine Dimesylate 70 mg PO DAILY 12/07/19 10/16/21 [Vyvanse] buPROPion [Wellbutrin Sr] 450 mg PO DAILY 12/07/19 10/16/21 Lurasidone HCl [Latuda] 60 mg PO DAILY 05/16/21 10/16/21 Venlafaxine [Effexor] 75 mg PO DAILY 05/16/21 10/16/21 HYDROcod/ACETAM 5/325 [[place] 5/325] 1 ea PO Q6H PRN #20 tablet 11/04/21 Lidocaine Patch 5% [Lidoderm Patch] 1 each TOP DAILY 10 Days #10 patch 11/04/21 Naproxen 500 mg PO BID #20 tab.sr 11/04/21 tiZANidine [Zanaflex] 4 mg PO Q8H PRN #25 tablet 11/04/21 - Allergies Allergies/Adverse Reactions: Allergies Allergy/AdvReac Type Severity Reaction Status Date / Time quetiapine [From Seroquel] Allergy Unknown Verified 11/04/21 14:01 - Social History Does the pt smoke?: No Smoking Status: Never smoker Does the pt drink ETOH?: No Does the pt have substance abuse?: No - Immunizations Immunizations are current?: Yes - POLST Patient has POLST: No PD ED PE NORMAL - Vitals Vital signs reviewed: Yes - General General: Alert and oriented X 3, Well developed/nourished, Other (guarded ROM of low back due to pain/spasms. ) - Cardiac Cardiac: RRR, No murmur - Respiratory Respiratory: Clear bilaterally - Abdomen Abdomen: Soft, Non tender - Back Back: No CVA TTP, No spinal TTP, Other (tender in paralumbar muscle at lower lumbar area. Feeling of muscle spasm in osft tissue. No rash nor sores. ) - Derm Derm: Normal color, Warm and dry - Neuro Neuro: Alert and oriented X 3, No motor deficit, No sensory deficit, Normal speech, Other (norml patellar reflexes.) Results - Vitals Vitals: Vital Signs - 24 hr 11/04/21 13:56 Temperature 36.4 C L Heart Rate 92 Respiratory 15 Rate Blood Pressure 128/79 O2 Saturation 99 Oxygen O2 Source Room air Procedures - General procedure General procedure: Trigger point injection at right lower lumbar muscle at local point tender, using Ropivocaine and Kenalog without problems. PD MEDICAL DECISION MAKING - ED course Complexity details: re-evaluated patient, considered differential, d/w patient Departure - Departure Disposition: 01 Home, Self Care Clinical Impression: Acute exacerbation of chronic low back pain Condition: Stable Record reviewed to determine appropriate education?: Yes Instructions: ED Spasm Back No Trauma Follow-Up: Karri Knowles MD [Primary Care Provider] - Prescriptions: Lidocaine Patch 5% [Lidoderm Patch] 1 each TOP DAILY 10 Days #10 patch Naproxen 500 mg PO BID #20 tab.sr HYDROcod/ACETAM 5/325 [[place] 5/325] 1 ea PO Q6H PRN #20 tablet PRN Reason: Pain tiZANidine [Zanaflex] 4 mg PO Q8H PRN #25 tablet PRN Reason: Spasms Comments: Heat and gentle stretching for the low back. You can try lidocaine patch to the area and see if that helps as well. Massage or chiropractic are also good to try. For the flareup in your ongoing pain, will for the short term over the next week or so try naproxen anti-inflammatory twice daily with food and also tizanidine muscle relaxant for spasm and stiffness. To this add Tylenol 500 mg 4 times daily. Also add hydrocodone acetaminophen if needed for worse pain. Follow-up with your primary care or your back specialist if not improving well over the next several days to week. I transmitted your prescriptions to your pharmacy. I am prescribing a short course of narcotic pain medication for you. These are potentially dangerous and addictive medications that should be used carefully. These medications may constipate you. Take an [id number] stool softener such as docusate twice daily with plenty of water while taking these medications. If you go 24 hours without a bowel movement, take [id number] MiraLAX, per package instructions. Do not drink or drive while taking these medications. If you received narcotic or sedating medications while in the emergency department do not drive for 24 hours. Store this medication in a safe, secure place and out of reach of children. It is a violation of federal law to give or sell this medication to another person or to use in a manner other than prescribed. The ED will not refill narcotic prescriptions, including prescriptions lost or stolen. You can dispose of unwanted medications at the [facility]'s office or at several pharmacies such as [facility]. Discharge Date/Time: 11/04/21 14:59
[2021-11-04 14:04] VITALS: BP 128/79
[2021-11-04] MEDS ORDERED: IBUPROFEN 600 MG TABLET PO STA (14:20)
[2021-11-04] MEDS ORDERED: TRIAMCINOLONE 40 MG/ML VIAL IM STA (14:21)
[2021-11-04] MEDS ORDERED: ROPIVACAINE 0.5% PF 20 ML AMPULE SUBQ STA (14:22)
[2021-11-04] MEDS ORDERED: HYDROmorphone 1 MG/ML CARPUJECT IM STA (14:23)
== END 2021-11-04 14:59 | disposition home or self-care (01) ==
LOC: ED 13:42
DX: M54.50 Low back pain, unspecified (principal); G89.29 Other chronic pain
CPT/HCPCS: 64450; 96372; 99284; A9270; J1170

== ENCOUNTER 2021-11-12 07:19 | Outpatient (CLI) | payer OTHER ==
--- NOTE | 2021-11-12 14:34 | CT Report ---
PROCEDURE: LUMBAR SPINE WO INDICATIONS: SPONDYLOLISTHESIS OF LUMBOSACRAL TECHNIQUE: Noncontrast 3 mm thick sections acquired from the T12 level to the sacrum. Sagittal and coronal refo rmats were constructed. For radiation dose reduction, the following was used: automated exposure co ntrol, adjustment of mA and/or kV according to patient size. COMPARISON: X-ray lumbar spine 131 2 FINDINGS: Image quality: Excellent. Bones: There is trace retrolisthesis of L2 on L3, L3 on L4. No visualized fractures or dislocations. No suspicious osseous lesions. Minimal disc space narrowing is present at L5-S1. Mild disc bulge is present at L5-S1 with mild appea rhys of superimposed left posterior protrusion causing compromise of the left lateral recess. There is mild to moderate right and mild left foraminal narrowing at L5-S1. Soft tissues: No retroperitoneal masses or hematomas. Visualized aorta is normal in caliber. IMPRESSION: 1. Appearance of disc bulge with mild compromise of the left lateral recess at L5-S1. Bilateral ivis inal narrowing is present. Reviewed by: Brigida Barakat MD on 11/12/2021 2:33 PM PST Approved by: Brigida Barakat MD on 11/12/2021 2:33 PM PST Station ID: [id number]
== END 2021-11-12 07:20 | disposition home or self-care (01) ==
LOC: DI 07:19
PROVIDERS: ATTEND Neurological Surgery
DX: M43.17 Spondylolisthesis, lumbosacral region (principal); M43.16 Spondylolisthesis, lumbar region; M51.27 Other intervertebral disc displacement, lumbosacral region; M48.061 Spinal stenosis, lumbar region without neurogenic claudication

== ENCOUNTER 2021-11-15 12:13 | Emergency (ER) | payer OTHER ==
[2021-11-15] MEDS ORDERED: KETAMINE 35 MG in SODIUM CHLORIDE 0.9% 100ML 100 ML IV STA (12:33)
--- NOTE | 2021-11-15 12:35 | ED Physician Documentation ---
PD HPI MHE - Stated complaint Stated Complaint: SI/MHE - Chief complaint Chief Complaint: MHE - History obtained from History obtained from: Patient - Additional information Additional information: 31-year-old woman presents requesting ketamine infusion. She has developed suicidal ideation over the last day. States that this is not uncommon for her and feels like without treatment she will get worse over the next days. Underlying diagnoses include bipolar and OCD. She has a vague plan for suicide but does not think she would act on it and declines to talk to the social media editor or consider voluntary hospitalization. This would be her fourth ketamine infusion, states that in the past higher dosing range has worked better for her. 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: None : None HEENT: None Psych: Depression, Anxiety, Bipolar disorder, ADD/ADHD Musculoskeletal: Chronic back pain Derm: None - Past Surgical History Past Surgical History: No - Present Medications Home Medications: Ambulatory Orders Medication Instructions Recorded Confirmed Lisdexamfetamine Dimesylate 70 mg PO DAILY 12/07/19 11/15/21 [Vyvanse] buPROPion [Wellbutrin Sr] 450 mg PO DAILY 12/07/19 11/15/21 Lurasidone HCl [Latuda] 60 mg PO DAILY 05/16/21 11/15/21 Venlafaxine [Effexor] 75 mg PO DAILY 05/16/21 11/15/21 tiZANidine [Zanaflex] 4 mg PO Q8H PRN #25 tablet 11/04/21 11/15/21 - Allergies Allergies/Adverse Reactions: Allergies Allergy/AdvReac Type Severity Reaction Status Date / Time quetiapine [From Seroquel] Allergy Unknown Verified 11/15/21 12:22 - Social History Does the pt smoke?: No Smoking Status: Never smoker Does the pt drink ETOH?: No Does the pt have substance abuse?: No - Immunizations Immunizations are current?: Yes - POLST Patient has POLST: No PD ED PE NORMAL - Vitals Vital signs reviewed: Yes - General General: Alert and oriented X 3, No acute distress - HEENT HEENT: Pharynx benign - Neck Neck: Supple, no meningeal sign, No bony TTP - Cardiac Cardiac: RRR, No murmur - Respiratory Respiratory: No respiratory distress, Clear bilaterally - Abdomen Abdomen: Non tender - Neuro Neuro: Alert and oriented X 3, junior legal secretary 2-12 intact, No motor deficit, No sensory deficit, Normal speech Eye Opening: Spontaneous Motor: Obeys Commands Verbal: Oriented GCS Score: 15 - Psych Psych: Normal mood, Normal affect Results - Vitals Vitals: Vital Signs - 24 hr 11/15/21 11/15/21 11/15/21 12:16 13:01 13:44 Temperature 36.1 C L Heart Rate 85 87 89 Respiratory 16 17 10 L Rate Blood Pressure 134/97 H 142/110 H 147/102 H O2 Saturation 99 100 100 11/15/21 14:07 Temperature Heart Rate 84 Respiratory 18 Rate Blood Pressure 145/106 H O2 Saturation 96 Oxygen O2 Source Room air PD MEDICAL DECISION MAKING - ED course ED course: She presents requesting ketamine infusion as this was worked well for her in the past and received a total of 35 mg of ketamine over 40 minutes and felt much better without ill effect. No significant emergence issue. She did have questions about how this could be done as an outpatient and we walked through that [place], especially not that would be covered by her insurance. She is not having to pay a co-pay for these visits. Departure - Departure Disposition: 01 Home, Self Care Clinical Impression: Depression Qualifiers: Depression Type: major depressive disorder Major depression recurrence: recurrent Active/Remission status: currently active Major depression episode severity: severe Psychotic features: without psychotic features Qualified Code(s): F33.2 - Major depressive disorder, recurrent severe without psychotic features Condition: Stable Record reviewed to determine appropriate education?: Yes Instructions: ED Depression Comments: Return anytime if worsening or if new symptoms develop. Followup with your therapist and psychiatrist as routine.
[2021-11-15 14:08] VITALS: BP 145/106
== END 2021-11-15 14:33 | disposition home or self-care (01) ==
LOC: ED 12:13
DX: F33.2 Major depressive disorder, recurrent severe without psychotic features (principal); R45.851 Suicidal ideations
CPT/HCPCS: 80053; 80307; 80320; 80329; 83690; 84443; 85025; 96365; 99283

== ENCOUNTER 2021-11-22 14:01 | Emergency (ER) | payer OTHER ==
[2021-11-22 14:06] VITALS: BP 148/84
[2021-11-22] MEDS ORDERED: HYDROmorphone 1 MG/ML CARPUJECT IM STA (14:26)
[2021-11-22] MEDS ORDERED: TRIAMCINOLONE 40 MG/ML VIAL IM STA (14:26)
[2021-11-22] MEDS ORDERED: BUPIVACAINE 0.5% PF 10 ML VIAL SUBQ STA (14:26)
--- NOTE | 2021-11-22 14:29 | ED Physician Documentation ---
PD HPI BACK PAIN - Stated complaint Stated Complaint: RT BACK PX - Chief complaint Chief Complaint: Back Pain - History obtained from History obtained from: Patient - Additional information Additional information: 31-year-old woman with longstanding back pain since a fall in 2002 and has a known herniated disc. Presents with her usual back pain which is lower lumbar and just to the right of midline with radiation down the lateral right thigh much worse today than usual. She had epidural steroid injections which have been modestly helpful in the past. She is seeing a back specialist and going to see a painter assistant next week. She denies incontinence, saddle anesthesia, fevers. She is breast-feeding an [id number]. No IV drug use. In the past cannabis has been helpful but has not used that since she first became , over 4 years ago. She is hesitant to use it again because she is breast-feeding. She saw Dr. Prince a few weeks ago. He prescribed hydrocodone which has not been helpful. He also did a trigger point injection which was helpful. She does have depression and anxiety, but has been on oral steroids in the past without worsening of her mental health issues. 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: None : None HEENT: None Psych: Depression, Anxiety, Bipolar disorder, ADD/ADHD Musculoskeletal: Chronic back pain Derm: None - Past Surgical History Past Surgical History: No General: Cholecystectomy - Present Medications Home Medications: Ambulatory Orders Medication Instructions Recorded Confirmed Lisdexamfetamine Dimesylate 70 mg PO DAILY 12/07/19 11/15/21 [Vyvanse] buPROPion [Wellbutrin Sr] 450 mg PO DAILY 12/07/19 11/15/21 Lurasidone HCl [Latuda] 60 mg PO DAILY 05/16/21 11/15/21 Venlafaxine [Effexor] 75 mg PO DAILY 05/16/21 11/15/21 tiZANidine [Zanaflex] 4 mg PO Q8H PRN #25 tablet 11/04/21 11/15/21 Lidocaine Patch 5% [Lidoderm Patch] 1 patch TOP DAILY PRN #10 patch 11/22/21 predniSONE [Deltasone] 20 mg PO [id number] #21 tab 11/22/21 - Allergies Allergies/Adverse Reactions: Allergies Allergy/AdvReac Type Severity Reaction Status Date / Time quetiapine [From Seroquel] Allergy Unknown Verified 11/22/21 14:06 - Social History Does the pt smoke?: No Smoking Status: Never smoker Does the pt drink ETOH?: No Does the pt have substance abuse?: No - Immunizations Immunizations are current?: Yes - POLST Patient has POLST: No PD ED PE NORMAL - Vitals Vital signs reviewed: Yes - General General: Alert and oriented X 3, No acute distress - Back Back: Other (Some muscular tenderness just to the right of midline near L4/L5. No midline spinal tenderness.) - Extremities Extremities: Other (The patient has equal and normal Achilles and patellar reflexes bilaterally. Normal sensation in all areas of the legs. Patient denies saddle anesthesia. Normal strength in flexion-extension at the ankles, knees, and flexion of the hips.) - Neuro Neuro: Alert and oriented X 3, Normal speech Results - Vitals Vitals: Vital Signs - 24 hr 11/22/21 14:02 Temperature 36.4 C L Heart Rate 98 Respiratory 14 Rate Blood Pressure 148/84 H O2 Saturation 99 Oxygen O2 Source Room air Procedures - General procedure General procedure: Trigger point injection was done with 9 mL of 0.5% Marcaine and 1 mL of 40 mg of triamcinolone to the most symptomatic area of the right low back without immediate complication. PD MEDICAL DECISION MAKING - ED course ED course: This patient has seemingly uncomplicated musculoskeletal back pain. The patient has no "red flags." Specifically denies IV drug use, fevers, incontinence, saddle anesthesia. Spinal epidural abscess was considered, given that the patient has no fever, is not diabetic, has no spinal tenderness, does not use IV drugs, and has no bilateral neurologic symptoms, the diagnosis of spinal epidural abscess is considered exceedingly unlikely. She does have some ongoing mental health issues and we discussed the risks and benefits of steroids, she says she is done fine with them in the past would like to go ahead with Them. She did get 1 mg of Dilaudid here. She has naproxen and recommended continuing this. Departure - Departure Disposition: 01 Home, Self Care Clinical Impression: Acute exacerbation of chronic low back pain Condition: Good Record reviewed to determine appropriate education?: Yes Instructions: ED Neck Back Pain General Prescriptions: predniSONE [Deltasone] 20 mg PO [id number] #21 tab Lidocaine Patch 5% [Lidoderm Patch] 1 patch TOP DAILY PRN #10 patch PRN Reason: pain Comments: I sent your prescription electronically to [facility] in [place]. Follow-up with the painter assistant next week as scheduled. Return for new or worsening symptoms. Continue the naproxen you are already on. Discharge Date/Time: 11/22/21 15:04
== END 2021-11-22 15:04 | disposition home or self-care (01) ==
LOC: ED 14:01
DX: M54.50 Low back pain, unspecified (principal); G89.29 Other chronic pain
CPT/HCPCS: 20552; 96372; 99282; 99283; J1170

== ENCOUNTER 2021-12-13 10:45 | Emergency (ER) | payer OTHER ==
[2021-12-13 12:29] LABS: BASOPHILS # (AUTO) 0.1 10^3/uL (0.0-0.1); BASOPHILS % (AUTO) 0.9 %; EOSINOPHILS # (AUTO) 0.2 10^3/uL (0.0-0.7); EOSINOPHILS % (AUTO) 2.3 %; HCT - HEMATOCRIT 40.8 % (37.0-47.0); HGB - HEMOGLOBIN 13.6 g/dL (12.0-16.0); LYMPHOCYTES # (AUTO) 2.4 10^3/uL (1.5-3.5); LYMPHOCYTES % (AUTO) 29.6 %; MEAN CORPUSCULAR HEMOGLOBIN 30.6 pg (27.0-31.0); MEAN CORPUSCULAR HGB CONC 33.3 g/dL (32.0-36.0); MEAN CORPUSCULAR VOLUME 91.7 fL (81.0-99.0); MEAN PLATELET VOLUME 8.9 fL (7.9-10.8); MONOCYTES # (AUTO) 0.7 10^3/uL (0.0-1.0); MONOCYTES % (AUTO) 8.6 %; NEUTROPHILS # (AUTO) 4.7 10^3/uL (1.5-6.6); NEUTROPHILS % (AUTO) 58.2 %; PLT - PLATELET COUNT 269 10^3/uL (130-450); RED BLOOD COUNT 4.45 10^6/uL (4.20-5.40); RED CELL DISTRIBUTION WIDTH 12.9 % (12.0-15.0)
[2021-12-13 12:49] LABS: ACETAMINOPHEN < 10 ug/mL (10-30); ALBUMIN 4.2 g/dL (3.2-5.5); ALBUMIN/GLOBULIN RATIO 1.4 (1.0-2.2); ALKALINE PHOSPHATASE 36 IU/L (42-121); ALT ALANINE AMINOTRANSFERASE 19 IU/L (10-60); AST ASPARTATE AMINOTRANSFERASE 20 IU/L (10-42); BILIRUBIN,TOTAL 0.4 mg/dL (0.2-1.0); BUN - BLOOD UREA NITROGEN 13 mg/dL (6-20); CALCIUM 9.1 mg/dL (8.5-10.3); CARBON DIOXIDE - CO2 28 mmol/L (21-32); CHLORIDE 100 mmol/L (101-111); CREATININE 0.8 mg/dL (0.4-1.0); ETOH - ETHANOL < 5.0 mg/dL; GFR - MDRD 83 (>89); GLUCOSE 87 mg/dL (70-100); LIPASE 48 U/L (22-51); SALICYLATE < 6.0 mg/dL; SODIUM 136 mmol/L (135-145); TOTAL PROTEIN 7.2 g/dL (6.7-8.2)
[2021-12-13] MEDS ORDERED: KETAMINE 35 MG in SODIUM CHLORIDE 0.9% 100ML 100 ML IV STA (13:22)
--- NOTE | 2021-12-13 13:28 | ED Physician Documentation ---
PD HPI MHE - Stated complaint Stated Complaint: SI - Chief complaint Chief Complaint: MHE - History obtained from History obtained from: Patient - History of Present Illness Primary symptom: Suicidal ideation Pain level max: 0 Pain level now: 0 - Additional information Additional information: Patient is a 31-year-old female who presents to the emergency department requesting a ketamine infusion for suicidal thoughts. She states that this significantly helped her depression. She is working with her psychiatrist on obtaining this on an outpatient basis. She states she is also seeing a new pain management doctor who is exploring ketamine infusions for pain. She states that she is not actively suicidal. Has no plan. Just has occasional thoughts. Nothing makes it better or worse. No fevers. No chills. No abdominal pain. No possibility of . 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 : None HEENT: None Psych: Depression, Anxiety, Bipolar disorder, ADD/ADHD Musculoskeletal: Chronic back pain Derm: None - Past Surgical History Past Surgical History: No General: Cholecystectomy - Present Medications Home Medications: Ambulatory Orders Medication Instructions Recorded Confirmed Lisdexamfetamine Dimesylate 70 mg PO DAILY 12/07/19 11/15/21 [Vyvanse] buPROPion [Wellbutrin Sr] 450 mg PO DAILY 12/07/19 11/15/21 Lurasidone HCl [Latuda] 60 mg PO DAILY 05/16/21 12/13/21 Venlafaxine [Effexor] 75 mg PO DAILY 05/16/21 12/13/21 Lidocaine Patch 5% [Lidoderm Patch] 1 patch TOP DAILY PRN #10 patch 11/22/21 12/13/21 - Allergies Allergies/Adverse Reactions: Allergies Allergy/AdvReac Type Severity Reaction Status Date / Time quetiapine [From Seroquel] Allergy Unknown Verified 11/22/21 14:06 - Social History Does the pt smoke?: No Smoking Status: Never smoker Does the pt drink ETOH?: No Does the pt have substance abuse?: No - Immunizations Immunizations are current?: Yes - POLST Patient has POLST: No PD ED PE NORMAL - Vitals Vital signs reviewed: Yes - General General: Alert and oriented X 3, No acute distress - HEENT HEENT: Moist mucous membranes - Neck Neck: Supple, no meningeal sign - Cardiac Cardiac: RRR, Strong equal pulses - Respiratory Respiratory: No respiratory distress, Clear bilaterally - Abdomen Abdomen: Soft, Non tender, Non distended - Derm Derm: Warm and dry - Neuro Neuro: Alert and oriented X 3 - Psych Psych: Normal mood, Normal affect Results - Vitals Vitals: Vital Signs - 24 hr 12/13/21 12/13/21 11:09 13:54 Temperature 36.4 C L Heart Rate 87 78 Respiratory 16 16 Rate Blood Pressure 141/95 H 135/94 H O2 Saturation 98 99 Oxygen O2 Source Room air - Labs Labs: Laboratory Tests 12/13/21 12/13/21 12/13/21 12:24 12:24 12:24 WBC 8.0 RBC 4.45 Hgb 13.6 Hct 40.8 MCV 91.7 MCH 30.6 MCHC 33.3 RDW 12.9 Plt Count 269 MPV 8.9 Neut # (Auto) 4.7 Lymph # (Auto) 2.4 Ware # (Auto) 0.7 Eos # (Auto) 0.2 Baso # (Auto) 0.1 Absolute Nucleated RBC 0.00 Nucleated RBC % 0.0 Sodium 136 Potassium 4.0 Chloride 100 L Carbon Dioxide 28 Anion Gap 8.0 BUN 13 Creatinine 0.8 Estimated GFR (MDRD) 83 L Glucose 87 Calcium 9.1 Total Bilirubin 0.4 AST 20 ALT 19 Alkaline Phosphatase 36 L Total Protein 7.2 Albumin 4.2 Globulin 3.0 Albumin/Globulin Ratio 1.4 Lipase 48 TSH 0.97 Urine Color Urine Clarity Urine pH Ur Specific [place] Urine Protein Urine Glucose (UA) Urine Ketones Urine Occult Blood Urine Nitrite Urine Bilirubin Urine Urobilinogen Ur Leukocyte Esterase Ur Microscopic Review Urine Culture Comments Urine HCG, Qual Salicylates < 6.0 Urine Opiates Screen Ur Oxycodone Screen Urine Methadone Screen Ur Propoxyphene Screen Acetaminophen < 10 L Ur Barbiturates Screen Ur Tricyclics Screen Ur Phencyclidine Scrn Ur Amphetamine Screen U Methamphetamines Scrn U Benzodiazepines Scrn Urine Cocaine Screen U Cannabinoids Screen Ethyl Alcohol < 5.0 12/13/21 13:30 WBC RBC Hgb Hct MCV MCH MCHC RDW Plt Count MPV Neut # (Auto) Lymph # (Auto) Ware # (Auto) Eos # (Auto) Baso # (Auto) Absolute Nucleated RBC Nucleated RBC % Sodium Potassium Chloride Carbon Dioxide Anion Gap BUN Creatinine Estimated GFR (MDRD) Glucose Calcium Total Bilirubin AST ALT Alkaline Phosphatase Total Protein Albumin Globulin Albumin/Globulin Ratio Lipase TSH Urine Color YELLOW Urine Clarity CLEAR Urine pH 6.5 Ur Specific [place] 1.020 Urine Protein NEGATIVE Urine Glucose (UA) NEGATIVE Urine Ketones NEGATIVE Urine Occult Blood NEGATIVE Urine Nitrite NEGATIVE Urine Bilirubin NEGATIVE Urine Urobilinogen 0.2 (NORMAL) Ur Leukocyte Esterase NEGATIVE Ur Microscopic Review NOT INDICATED Urine Culture Comments NOT INDICATED Urine HCG, Qual NEGATIVE Salicylates Urine Opiates Screen NEGATIVE Ur Oxycodone Screen NEGATIVE Urine Methadone Screen NEGATIVE Ur Propoxyphene Screen NEGATIVE Acetaminophen Ur Barbiturates Screen NEGATIVE Ur Tricyclics Screen NEGATIVE Ur Phencyclidine Scrn NEGATIVE Ur Amphetamine Screen POSITIVE H U Methamphetamines Scrn NEGATIVE U Benzodiazepines Scrn NEGATIVE Urine Cocaine Screen NEGATIVE U Cannabinoids Screen NEGATIVE Ethyl Alcohol PD MEDICAL DECISION MAKING - ED course Complexity details: reviewed old records, reviewed results, re-evaluated patient, considered differential, d/w patient ED course: 31-year-old female with depression, not actively suicidal. Contracts for safety. She is here requesting ketamine infusion. This was performed. Feels better. No complications. We will have her follow-up with her psychiatrist and pain specialist to obtain ketamine infusions as an outpatient. Patient does not want to be hospitalized. Declines any further care. Patient counseled regarding signs and symptoms for which I believe and urgent re-evaluation would be necessary. Patient with good understanding of and agreement to plan and is comfortable going home at this time This document was made in part using voice recognition software. While efforts are made to proofread this document, sound alike and grammatical errors may occur. Departure - Departure Disposition: 01 Home, Self Care Clinical Impression: Depression Qualifiers: Depression Type: unspecified Qualified Code(s): F32.A - Depression, unspecified Condition: Good Instructions: ED Depression Follow-Up: Karri Knowles MD [Primary Care Provider] - Within 1 week Comments: Please follow-up with your doctor to discuss ketamine infusions as an outpatient as they do seem to help your depression. Your doctor can fax an order for this to the [facility] at [phone] Crisis Line and is available to talk to someone [email or web address] is also available to chat with someone online if you prefer. There are also many resources on this website and apps for your phone to help with your mental health You can also text the word START to [phone] to chat with someome via text.
[2021-12-13 13:37] LABS: MUDS CUTOFF CONCENTRATIONS CUTOFF CONC BELOW:
[2021-12-13 13:40] LABS: BILIRUBIN,URINE NEGATIVE (NEGATIVE); GLUCOSE, URINE (UA) NEGATIVE (NEGATIVE); KETONES,URINE (UA) NEGATIVE (NEGATIVE); LEUKOCYTE ESTERASE, URINE NEGATIVE (NEGATIVE); NITRITE,URINE NEGATIVE (NEGATIVE); OCCULT BLOOD,URINE NEGATIVE (NEGATIVE); PH,URINE 6.5 PH (5.0-7.5); PROTEIN,URINE NEGATIVE (NEGATIVE); UROBILINOGEN,URINE 0.2 (NORMAL) E.U./dL (NORMAL)
[2021-12-13 13:44] LABS: CLARITY,URINE CLEAR (CLEAR); HCG UR QUAL NEGATIVE
[2021-12-13 13:51] LABS: AMPHETAMINE SCREEN,URINE POSITIVE (NEGATIVE); BARBITURATE SCREEN,UR NEGATIVE (NEGATIVE); BENZODIAZEPINES SCREEN, URINE NEGATIVE (NEGATIVE); COCAINE SCREEN URINE NEGATIVE (NEGATIVE); METHADONE SCREEN, URINE NEGATIVE (NEGATIVE); METHAMPHETAMINES SCREEN, URINE NEGATIVE (NEGATIVE); OPIATE SCREEN, URINE NEGATIVE (NEGATIVE); OXYCODONE SCREEN, URINE NEGATIVE (NEGATIVE); PROPOXYPHENE SCREEN, URINE NEGATIVE (NEGATIVE); THC CANNABINOID SCREEN, URINE NEGATIVE (NEGATIVE); TRICYCLIC ANTIDEPRESSANT,URINE NEGATIVE (NEGATIVE)
[2021-12-13 13:56] VITALS: BP 135/94
== END 2021-12-13 14:55 | disposition home or self-care (01) ==
LOC: ED 10:45
DX: F32.A Depression, unspecified (principal)
CPT/HCPCS: 36415; 80053; 80306; 80307; 80320; 80329; 81001; 81003; 81025; 83690; 84443; 85025; 87086; 96365; 99282

== ENCOUNTER 2022-01-25 11:50 | Emergency (ER) | payer OTHER ==
[2022-01-25] MEDS ORDERED: KETAMINE 35 MG in SODIUM CHLORIDE 0.9% 100ML 100 ML IV STA (13:40)
--- NOTE | 2022-01-25 13:43 | ED Physician Documentation ---
PD HPI MHE - Stated complaint Stated Complaint: SI - Chief complaint Chief Complaint: MHE - History obtained from History obtained from: Patient - Additional information Additional information: 31-year-old woman with chronic suicidal ideation and depression presents requesting ketamine infusion. She has been coming for ketamine infusions every few months and feels like it is time because of worsening of her depression. While she has chronic SI it is not worse than normal and she has no intent or plan. 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 : None HEENT: None Psych: Depression, Anxiety, Bipolar disorder, ADD/ADHD Musculoskeletal: Chronic back pain Derm: None - Past Surgical History Past Surgical History: No General: Cholecystectomy - Present Medications Home Medications: Ambulatory Orders Medication Instructions Recorded Confirmed Lisdexamfetamine Dimesylate 70 mg PO DAILY 12/07/19 01/25/22 [Vyvanse] buPROPion [Wellbutrin Sr] 450 mg PO DAILY 12/07/19 01/25/22 Lurasidone HCl [Latuda] 60 mg PO DAILY 05/16/21 01/25/22 Venlafaxine [Effexor] 75 mg PO DAILY 05/16/21 01/25/22 - Allergies Allergies/Adverse Reactions: Allergies Allergy/AdvReac Type Severity Reaction Status Date / Time quetiapine [From Seroquel] Allergy Unknown Verified 01/25/22 12:26 - Social History Does the pt smoke?: No Smoking Status: Never smoker Does the pt drink ETOH?: No Does the pt have substance abuse?: No - Immunizations Immunizations are current?: Yes - POLST Patient has POLST: No PD ED PE NORMAL - Vitals Vital signs reviewed: Yes - General General: Alert and oriented X 3, No acute distress - HEENT HEENT: Pharynx benign - Respiratory Respiratory: No respiratory distress, Clear bilaterally - Neuro Neuro: Alert and oriented X 3, Normal speech Results - Vitals Vitals: Vital Signs - 24 hr 01/25/22 12:22 Temperature 36.1 C L Heart Rate 108 H Respiratory 16 Rate Blood Pressure 140/92 H O2 Saturation 98 Oxygen O2 Source Room air PD MEDICAL DECISION MAKING - ED course ED course: 31-year-old woman presents with exacerbation of depression requesting ketamine infusion as has been done in the past and this was done with symptomatic relief. She voiced no further needs. Departure - Departure Disposition: 01 Home, Self Care Clinical Impression: Depression Qualifiers: Depression Type: major depressive disorder Major depression recurrence: recurrent Active/Remission status: currently active Major depression episode severity: moderate Qualified Code(s): F33.1 - Major depressive disorder, recurrent, moderate Condition: Good Record reviewed to determine appropriate education?: Yes Instructions: ED Depression Comments: Return as needed for new or worsening symptoms. Follow-up with your psychiatrist as routine.
[2022-01-25 15:21] VITALS: BP 139/91
== END 2022-01-25 15:23 | disposition home or self-care (01) ==
LOC: ED 11:50
DX: F33.1 Major depressive disorder, recurrent, moderate (principal)
CPT/HCPCS: 96365; 99282

== ENCOUNTER 2022-02-15 09:33 | Emergency (ER) | payer OTHER ==
[2022-02-15 10:11] LABS: MUDS CUTOFF CONCENTRATIONS CUTOFF CONC BELOW:
[2022-02-15 10:18] LABS: BILIRUBIN,URINE NEGATIVE (NEGATIVE); GLUCOSE, URINE (UA) NEGATIVE (NEGATIVE); KETONES,URINE (UA) NEGATIVE (NEGATIVE); LEUKOCYTE ESTERASE, URINE NEGATIVE (NEGATIVE); NITRITE,URINE NEGATIVE (NEGATIVE); OCCULT BLOOD,URINE NEGATIVE (NEGATIVE); PROTEIN,URINE NEGATIVE (NEGATIVE); UROBILINOGEN,URINE 0.2 (NORMAL) E.U./dL (NORMAL)
[2022-02-15 10:21] LABS: CLARITY,URINE CLEAR (CLEAR); HCG UR QUAL NEGATIVE
[2022-02-15 10:23] LABS: BASOPHILS # (AUTO) 0.1 10^3/uL (0.0-0.1); EOSINOPHILS # (AUTO) 0.2 10^3/uL (0.0-0.7); HCT - HEMATOCRIT 39.3 % (37.0-47.0); HGB - HEMOGLOBIN 13.2 g/dL (12.0-16.0); LYMPHOCYTES % (AUTO) 31.5 %; MEAN CORPUSCULAR HEMOGLOBIN 30.3 pg (27.0-31.0); MEAN CORPUSCULAR HGB CONC 33.6 g/dL (32.0-36.0); MEAN CORPUSCULAR VOLUME 90.3 fL (81.0-99.0); MEAN PLATELET VOLUME 9.2 fL (7.9-10.8); MONOCYTES # (AUTO) 0.5 10^3/uL (0.0-1.0); MONOCYTES % (AUTO) 8.3 %; NEUTROPHILS # (AUTO) 3.5 10^3/uL (1.5-6.6); NEUTROPHILS % (AUTO) 56.2 %; PLT - PLATELET COUNT 256 10^3/uL (130-450); RED BLOOD COUNT 4.35 10^6/uL (4.20-5.40); RED CELL DISTRIBUTION WIDTH 12.2 % (12.0-15.0); WHITE BLOOD COUNT 6.3 x10^3/uL (4.8-10.8)
[2022-02-15 10:26] LABS: AMPHETAMINE SCREEN,URINE POSITIVE (NEGATIVE); BARBITURATE SCREEN,UR NEGATIVE (NEGATIVE); BENZODIAZEPINES SCREEN, URINE NEGATIVE (NEGATIVE); COCAINE SCREEN URINE NEGATIVE (NEGATIVE); METHADONE SCREEN, URINE NEGATIVE (NEGATIVE); METHAMPHETAMINES SCREEN, URINE NEGATIVE (NEGATIVE); OPIATE SCREEN, URINE NEGATIVE (NEGATIVE); OXYCODONE SCREEN, URINE NEGATIVE (NEGATIVE); PROPOXYPHENE SCREEN, URINE NEGATIVE (NEGATIVE); THC CANNABINOID SCREEN, URINE NEGATIVE (NEGATIVE); TRICYCLIC ANTIDEPRESSANT,URINE NEGATIVE (NEGATIVE)
[2022-02-15 10:38] LABS: ACETAMINOPHEN < 10 ug/mL (10-30); ALBUMIN 4.4 g/dL (3.2-5.5); ALBUMIN/GLOBULIN RATIO 1.6 (1.0-2.2); ALKALINE PHOSPHATASE 33 IU/L (42-121); ALT ALANINE AMINOTRANSFERASE 16 IU/L (10-60); AST ASPARTATE AMINOTRANSFERASE 17 IU/L (10-42); BILIRUBIN,TOTAL 0.5 mg/dL (0.2-1.0); BUN - BLOOD UREA NITROGEN 11 mg/dL (6-20); CARBON DIOXIDE - CO2 26 mmol/L (21-32); CHLORIDE 104 mmol/L (101-111); CREATININE 0.8 mg/dL (0.4-1.0); ETOH - ETHANOL < 5.0 mg/dL; GFR - MDRD 83 (>89); GLUCOSE 102 mg/dL (70-100); LIPASE 52 U/L (22-51); POTASSIUM 4.2 mmol/L (3.5-5.0); SALICYLATE < 6.0 mg/dL; SODIUM 139 mmol/L (135-145); TOTAL PROTEIN 7.1 g/dL (6.7-8.2)
[2022-02-15] MEDS ORDERED: KETAMINE 35 MG in SODIUM CHLORIDE 0.9% 100ML 100 ML IV STA (10:46)
--- NOTE | 2022-02-15 10:47 | ED Physician Documentation ---
PD HPI MHE - Stated complaint Stated Complaint: SI - Chief complaint Chief Complaint: MHE - History obtained from History obtained from: Patient - History of Present Illness Primary symptom: Suicidal ideation Timing - onset: Last night Contributing factors: Sig other Similar symptoms before: Diagnosis (depression with chronic intrussive thoughts of SI) Recently seen: Emergency Dept (one month ago for Ketamine infusion) - Additional information Additional information: 31-year-old female with a history of depression and chronic suicidal ideation was in an argument with her yesterday evening and she had a panic attack and this induced intrusive thoughts of suicide. The patient states that she has had good luck with ketamine infusions helping with this portion of her depression and she is requesting a ketamine infusion today. She does have a vincent n today that she would walk out into traffic. Review of Systems Constitutional: denies: Fever Eyes: denies: Decreased vision Ears: denies: Ear pain Nose: denies: Congestion Throat: denies: Sore throat Cardiac: denies: Chest pain / pressure Respiratory: denies: Dyspnea, Cough GI: denies: Nausea, Vomiting, Diarrhea : denies: Dysuria, Frequency Skin: denies: Rash Musculoskeletal: denies: Neck pain, Back pain, Extremity pain Neurologic: denies: Generalized weakness, Focal weakness, Numbness Psychiatric: reports: Depressed, Suicidal PD PAST MEDICAL HISTORY - Past Medical History Cardiovascular: None Respiratory: None Neuro: None Endocrine/Autoimmune: None GI: Ulcers 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 HEENT: None Psych: Depression, Anxiety, Bipolar disorder, ADD/ADHD Musculoskeletal: Chronic back pain Derm: None - Past Surgical History Past Surgical History: No General: Cholecystectomy - Present Medications Home Medications: Ambulatory Orders Medication Instructions Recorded Confirmed Lisdexamfetamine Dimesylate 70 mg PO DAILY 12/07/19 02/15/22 [Vyvanse] buPROPion [Wellbutrin Sr] 450 mg PO DAILY 12/07/19 02/15/22 Lurasidone HCl [Latuda] 60 mg PO DAILY 05/16/21 02/15/22 Venlafaxine [Effexor] 3 tab PO DAILY 05/16/21 02/15/22 LORazepam [Ativan] 0.5 mg PO DAILY PRN 02/15/22 02/15/22 - Allergies Allergies/Adverse Reactions: Allergies Allergy/AdvReac Type Severity Reaction Status Date / Time quetiapine [From Seroquel] Allergy Unknown Verified 02/15/22 09:47 - Social History Does the pt smoke?: No Smoking Status: Never smoker Does the pt drink ETOH?: No Does the pt have substance abuse?: No - Immunizations Immunizations are current?: Yes - POLST Patient has POLST: No PD ED PE NORMAL - Vitals Vital signs reviewed: Yes (tachy and hypertensive mild) - General General: Alert and oriented X 3, No acute distress, Well developed/nourished - HEENT HEENT: Atraumatic, PERRL, EOMI - Neck Neck: Supple, no meningeal sign - Cardiac Cardiac: RRR, No murmur - Respiratory Respiratory: No respiratory distress, Clear bilaterally - Abdomen Abdomen: Soft, Non tender - Back Back: No CVA TTP, No spinal TTP - Derm Derm: Normal color, Warm and dry, No rash - Extremities Extremities: No deformity, No edema - Neuro Neuro: Alert and oriented X 3, track patrol 2-12 intact, No motor deficit, No sensory deficit, Normal speech Eye Opening: Spontaneous Motor: Obeys Commands Verbal: Oriented GCS Score: 15 - Psych Psych: Normal mood, Normal affect Results - Vitals Vitals: Vital Signs - 24 hr 02/15/22 02/15/22 09:43 11:30 Temperature 37 C Heart Rate 105 H 98 Respiratory 12 10 L Rate Blood Pressure 125/86 H 130/90 H O2 Saturation 98 100 Oxygen O2 Source Room air - Labs Labs: Laboratory Tests 02/15/22 02/15/22 02/15/22 09:52 10:17 10:17 WBC 6.3 RBC 4.35 Hgb 13.2 Hct 39.3 MCV 90.3 MCH 30.3 MCHC 33.6 RDW 12.2 Plt Count 256 MPV 9.2 Neut # (Auto) 3.5 Lymph # (Auto) 2.0 [place] # (Auto) 0.5 Eos # (Auto) 0.2 Baso # (Auto) 0.1 Absolute Nucleated RBC 0.00 Nucleated RBC % 0.0 Sodium 139 Potassium 4.2 Chloride 104 Carbon Dioxide 26 Anion Gap 9.0 BUN 11 Creatinine 0.8 Estimated GFR (MDRD) 83 L Glucose 102 H Calcium 9.0 Total Bilirubin 0.5 AST 17 ALT 16 Alkaline Phosphatase 33 L Total Protein 7.1 Albumin 4.4 Globulin 2.7 Albumin/Globulin Ratio 1.6 Lipase 52 H TSH Urine Color YELLOW Urine Clarity CLEAR Urine pH 6.0 Ur Specific [place] <=1.005 Urine Protein NEGATIVE Urine Glucose (UA) NEGATIVE Urine Ketones NEGATIVE Urine Occult Blood NEGATIVE Urine Nitrite NEGATIVE Urine Bilirubin NEGATIVE Urine Urobilinogen 0.2 (NORMAL) Ur Leukocyte Esterase NEGATIVE Ur Microscopic Review NOT INDICATED Urine Culture Comments NOT INDICATED Urine HCG, Qual NEGATIVE Salicylates < 6.0 Urine Opiates Screen NEGATIVE Ur Oxycodone Screen NEGATIVE Urine Methadone Screen NEGATIVE Ur Propoxyphene Screen NEGATIVE Acetaminophen < 10 L Ur Barbiturates Screen NEGATIVE Ur Tricyclics Screen NEGATIVE Ur Phencyclidine Scrn NEGATIVE Ur Amphetamine Screen POSITIVE H U Methamphetamines Scrn NEGATIVE U Benzodiazepines Scrn NEGATIVE Urine Cocaine Screen NEGATIVE U Cannabinoids Screen NEGATIVE Ethyl Alcohol < 5.0 02/15/22 10:17 WBC RBC Hgb Hct MCV MCH MCHC RDW Plt Count MPV Neut # (Auto) Lymph # (Auto) [place] # (Auto) Eos # (Auto) Baso # (Auto) Absolute Nucleated RBC Nucleated RBC % Sodium Potassium Chloride Carbon Dioxide Anion Gap BUN Creatinine Estimated GFR (MDRD) Glucose Calcium Total Bilirubin AST ALT Alkaline Phosphatase Total Protein Albumin Globulin Albumin/Globulin Ratio Lipase TSH 0.79 Urine Color Urine Clarity Urine pH Ur Specific [place] Urine Protein Urine Glucose (UA) Urine Ketones Urine Occult Blood Urine Nitrite Urine Bilirubin Urine Urobilinogen Ur Leukocyte Esterase Ur Microscopic Review Urine Culture Comments Urine HCG, Qual Salicylates Urine Opiates Screen Ur Oxycodone Screen Urine Methadone Screen Ur Propoxyphene Screen Acetaminophen Ur Barbiturates Screen Ur Tricyclics Screen Ur Phencyclidine Scrn Ur Amphetamine Screen U Methamphetamines Scrn U Benzodiazepines Scrn Urine Cocaine Screen U Cannabinoids Screen Ethyl Alcohol PD MEDICAL DECISION MAKING - ED course Complexity details: reviewed old records, reviewed results, re-evaluated oriana correa, considered differential, d/w patient ED course: 31-year-old female with history of chronic suicidal ideation and depression has been in a fight with her yesterday evening and she had a panic attack which triggered her intrusions of suicidal ideation. She is coming today requesting a ketamine infusion and she is administered an infusion with 35 mg as previously. The patient has follow-up with her psychiatrist today. Departure - Departure Disposition: 01 Home, Self Care Clinical Impression: Depression Qualifiers: Depression Type: major depressive disorder Major depression recurrence: recurrent Active/Remission status: currently active Major depression episode severity: moderate Qualified Code(s): F33.1 - Major depressive disorder, rec urrent, moderate Condition: Stable Instructions: ED Stress React, ED Depression Follow-Up: Karri Knowles MD [Primary Care Provider] - Comments: Follow-up with your psychiatrist as planned today.
[2022-02-15 12:09] VITALS: BP 131/81
== END 2022-02-15 12:12 | disposition home or self-care (01) ==
LOC: ED 09:33
DX: R45.851 Suicidal ideations (principal); F33.1 Major depressive disorder, recurrent, moderate
CPT/HCPCS: 36415; 80053; 80306; 80307; 80320; 80329; 81001; 81003; 81025; 83690; 84443; 85025; 87086; 96365; 99283

== ENCOUNTER 2022-04-04 14:52 | Emergency (ER) | payer OTHER ==
[2022-04-04] MEDS ORDERED: KETAMINE 500 MG/10 ML VIAL IVP STA (15:38)
--- NOTE | 2022-04-04 15:49 | ED Physician Documentation ---
History of Present Illness - Stated complaint Stated Complaint: SI - Chief complaint Chief Complaint: MHE - History obtained from History obtained from: Patient - History of Present Illness Timing: Today Pain level max: 0 Pain level now: 0 - Additonal information Additional information: Patient is a 31-year-old female who presents to the emergency department requesting a ketamine infusion for depression. She has a longstanding history of depression. She states she normally gets 30 to 40 days of relief from her depression for a ketamine infusion. She has tried to set this up as an outpatient multiple times but with no success. Currently she feels depressed but not suicidal or homicidal. Does not have a plan. Contracts for safety. 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 HEENT: None Psych: Depression, Anxiety, Bipolar disorder, ADD/ADHD Musculoskeletal: Chronic back pain Derm: None - Past Surgical History Past Surgical History: No General: Cholecystectomy - Present Medications Home Medications: Ambulatory Orders Medication Instructions Recorded Confirmed Lisdexamfetamine Dimesylate 70 mg PO DAILY 12/07/19 02/15/22 [Vyvanse] buPROPion [Wellbutrin Sr] 450 mg PO DAILY 12/07/19 02/15/22 Lurasidone HCl [Latuda] 60 mg PO DAILY 05/16/21 02/15/22 Venlafaxine [Effexor] 3 tab PO DAILY 05/16/21 02/15/22 LORazepam [Ativan] 0.5 mg PO DAILY PRN 02/15/22 02/15/22 - Allergies Allergies/Adverse Reactions: Allergies Allergy/AdvReac Type Severity Reaction Status Date / Time quetiapine [From Seroquel] Allergy Unknown Verified 04/04/22 14:59 - Social History Does the pt smoke?: No Smoking Status: Never smoker Does the pt drink ETOH?: No Does the pt have substance abuse?: No - Immunizations Immunizations are current?: Yes - POLST Patient has POLST: No PD ED PE NORMAL - Vitals Vital signs reviewed: Yes - General General: Alert and oriented X 3, No acute distress, Well developed/nourished - HEENT HEENT: PERRL, Moist mucous membranes - Neck Neck: Supple, no meningeal sign - Cardiac Cardiac: RRR, Strong equal pulses - Respiratory Respiratory: No respiratory distress, Clear bilaterally - Abdomen Abdomen: Soft, Non tender, Non distended - Derm Derm: Warm and dry - Extremities Extremities: No edema - Neuro Neuro: Alert and oriented X 3 - Psych Psych: Normal mood, Normal affect Results - Vitals Vitals: Vital Signs - 24 hr 04/04/22 04/04/22 04/04/22 14:56 16:48 17:40 Temperature 36.5 C Heart Rate 87 85 80 Respiratory 12 18 15 Rate Blood Pressure 141/96 H 131/93 H 127/89 H O2 Saturation 100 100 100 04/04/22 17:47 Temperature 36.8 C Heart Rate 88 Respiratory 17 Rate Blood Pressure 132/92 H O2 Saturation 100 Oxygen O2 Source Room air PD MEDICAL DECISION MAKING - ED course Complexity details: reviewed old records, re-evaluated patient, considered differential, d/w patient ED course: Patient was given her usual ketamine infusion. Feels better. No side effects. Contracts for safety. Is forward thinking. Does not have any suicidal plan. Patient counseled regarding signs and symptoms for which I believe and urgent re-evaluation would be necessary. Patient with good understanding of and agreement to plan and is comfortable going home at this time This document was made in part using voice recognition software. While efforts are made to proofread this document, sound alike and grammatical errors may occur. Departure - Departure Disposition: 01 Home, Self Care Clinical Impression: Depression Qualifiers: Depression Type: unspecified Qualified Code(s): F32.A - Depression, unspecified Condition: Good Instructions: ED Depression Follow-Up: Karri Knowles MD [Primary Care Provider] - Within 1 week Comments: Please follow-up with your doctor for further care. Return if you worsen. Cri sis Line and is available to talk to someone [email or web address] is also available to chat with someone online if you prefer. There are also many resources on this website and apps for your phone to help with your mental health You can also text the word START to [phone] to chat with someome via text. Discharge Date/Time: 04/04/22 17:49
[2022-04-04] MEDS ORDERED: KETAMINE 35 MG in SODIUM CHLORIDE 0.9% 100ML 100 ML IV STA (16:21)
[2022-04-04 17:48] VITALS: BP 132/92
== END 2022-04-04 17:49 | disposition home or self-care (01) ==
LOC: ED 14:52
DX: F32.A Depression, unspecified (principal)
CPT/HCPCS: 96365; 99283

== ENCOUNTER 2022-07-23 16:02 | Emergency (ER) | payer OTHER ==
[2022-07-23] MEDS ORDERED: KETAMINE 35 MG in SODIUM CHLORIDE 0.9% 100ML 100 ML IV STA (16:15)
--- NOTE | 2022-07-23 16:24 | ED Physician Documentation ---
History of Present Illness - Stated complaint Stated Complaint: ANXIETY - Chief complaint Chief Complaint: MHE - History obtained from History obtained from: Patient - History of Present Illness Pain level max: 0 Pain level now: 0 - Additonal information Additional information: 31-year-old female with chronic anxiety and depression. She states she had been doing well since April when she last had a ketamine infusion here. She states she has been having increasing suicidal thoughts again and is requesting another ketamine infusion. She is not currently suicidal or homicidal. Does not have a plan. She does feel safe at home. She is followed closely by her psychiatrist. 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 HEENT: None Psych: Depression, Anxiety, Bipolar disorder, ADD/ADHD Musculoskeletal: Chronic back pain Derm: None - Past Surgical History Past Surgical History: No General: Cholecystectomy - Present Medications Home Medications: Ambulatory Orders Medication Instructions Recorded Confirmed Lisdexamfetamine Dimesylate 70 mg PO DAILY 12/07/19 02/15/22 [Vyvanse] buPROPion [Wellbutrin Sr] 450 mg PO DAILY 12/07/19 02/15/22 Lurasidone HCl [Latuda] 60 mg PO DAILY 05/16/21 02/15/22 Venlafaxine [Effexor] 3 tab PO DAILY 05/16/21 02/15/22 LORazepam [Ativan] 0.5 mg PO DAILY PRN 02/15/22 02/15/22 - Allergies Allergies/Adverse Reactions: Allergies Allergy/AdvReac Type Severity Reaction Status Date / Time quetiapine [From Seroquel] Allergy Unknown Verified 07/23/22 16:12 - Social History Does the pt smoke?: No Smoking Status: Never smoker Does the pt drink ETOH?: No Does the pt have substance abuse?: No - Immunizations Immunizations are current?: Yes - POLST Patient has POLST: No PD ED PE NORMAL - Vitals Vital signs reviewed: Yes - General General: Alert and oriented X 3, No acute distress - HEENT HEENT: PERRL, Moist mucous membranes - Neck Neck: Supple, no meningeal sign - Cardiac Cardiac: RRR - Respiratory Respiratory: No respiratory distress, Clear bilaterally - Abdomen Abdomen: Soft, Non tender, Non distended - Derm Derm: Warm and dry - Extremities Extremities: No edema - Neuro Neuro: Alert and oriented X 3 - Psych Psych: Normal mood, Normal affect Results - Vitals Vitals: Vital Signs - 24 hr 07/23/22 07/23/22 16:06 16:40 Temperature 36.2 C L Heart Rate 106 H 86 Respiratory 18 18 Rate Blood Pressure 130/79 122/86 H O2 Saturation 100 100 Oxygen O2 Source Room air PD MEDICAL DECISION MAKING - ED course Complexity details: re-evaluated patient, considered differential, d/w patient ED course: 31-year-old female is here requesting a ketamine infusion for her depression. This was done. Tolerated well. No complications. Patient feels better. She is not suicidal or homicidal. Contracts for safety. Patient counseled regarding signs and symptoms for which I believe and urgent re-evaluation would be necessary. Patient with good understanding of and agreement to plan and is comfortable going home at this time This document was made in part using voice recognition software. While efforts are made to proofread this document, sound alike and grammatical errors may occur. Departure - Departure Disposition: 01 Home, Self Care Clinical Impression: Anxiety Depression Qualifiers: Depression Type: unspecified Qualified Code(s): F32.A - Depression, unspecified Condition: Good Instructions: ED Depression Follow-Up: Karri Knowles MD [Primary Care Provider] - Within 1 week Comments: You received a infusion of ketamine today. Please follow-up with your doctor for further care. Please return if you worsen. Crisis Line and is available to talk to someone [email or web address] is also available to chat with someone online if you prefer. There are also many resources on this website and apps for your phone to help with your mental health You can also text the word START to [phone] to chat with someome via text. Discharge Date/Time: 07/23/22 17:54
[2022-07-23 16:41] VITALS: BP 122/86
== END 2022-07-23 17:54 | disposition home or self-care (01) ==
LOC: ED 16:02
DX: F41.9 Anxiety disorder, unspecified (principal); F32.A Depression, unspecified
CPT/HCPCS: 96365; 99283

== ENCOUNTER 2022-10-02 09:08 | Emergency (ER) | payer OTHER ==
[2022-10-02] MEDS ORDERED: KETAMINE 40 MG in SODIUM CHLORIDE 0.9% 100ML 100 ML IV STA (12:30)
--- NOTE | 2022-10-02 12:32 | ED Physician Documentation ---
PD HPI MHE - Stated complaint Stated Complaint: SI - Chief complaint Chief Complaint: MHE - History obtained from History obtained from: Patient - Additional information Additional information: 31-year-old woman with chronic depression presents requesting a ketamine drip. She has had some increasing suicidal ideation with plan lately but no intent. She has been getting ketamine a few times a year and usually has significant symptomatic relief for several months after that. She feels safe going home and declines hospitalization. 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 : None HEENT: None Psych: Depression, Anxiety, Bipolar disorder, ADD/ADHD Musculoskeletal: Chronic back pain Derm: None - Past Surgical History Past Surgical History: No General: Cholecystectomy - Present Medications Home Medications: Ambulatory Orders Medication Instructions Recorded Confirmed Lisdexamfetamine Dimesylate 70 mg PO DAILY 12/07/19 10/02/22 [Vyvanse] buPROPion [Wellbutrin Sr] 450 mg PO DAILY 12/07/19 10/02/22 Lurasidone HCl [Latuda] 60 mg PO DAILY 05/16/21 10/02/22 Venlafaxine [Effexor] 3 tab PO DAILY 05/16/21 10/02/22 - Allergies Allergies/Adverse Reactions: Allergies Allergy/AdvReac Type Severity Reaction Status Date / Time quetiapine [From Seroquel] Allergy Unknown Verified 10/02/22 09:17 - Social History Does the pt smoke?: No Smoking Status: Never smoker Does the pt drink ETOH?: No Does the pt have substance abuse?: No - Immunizations Immunizations are current?: Yes - POLST Patient has POLST: No PD ED PE NORMAL - Vitals Vital signs reviewed: Yes - General General: Alert and oriented X 3, No acute distress - Neuro Neuro: Alert and oriented X 3, No motor deficit, No sensory deficit, Normal speech Eye Opening: Spontaneous Motor: Obeys Commands Verbal: Oriented GCS Score: 15 - Psych Psych: Other (At times poor eye contact but at other times she is friendly, smiling and even laughing) Results - Vitals Vitals: Vital Signs - 24 hr 10/02/22 10/02/22 09:10 12:46 Temperature 36.5 C Heart Rate 105 H 76 Respiratory 16 14 Rate Blood Pressure 145/78 H 144/78 H O2 Saturation 98 100 Oxygen O2 Source Room air PD Medical Decision Making - ED course ED course: 31-year-old woman with recurrent SI requests ketamine infusion and she was given 40 mg with improvement in her mood. She contracts for safety here. Departure - Departure Disposition: Home, Self Care Clinical Impression: Depression Qualifiers: Depression Type: major depressive disorder Major depression recurrence: recurrent Active/Remission status: currently active Major depression episode severity: severe Psychotic features: without psychotic features Qualified Code(s): F33.2 - Major depressive disorder, recurrent severe without psychotic features Condition: Good Record reviewed to determine appropriate education?: Yes Instructions: ED Depression Comments: Follow-up with your psychiatrist as routine, return for new or worsening symptoms.
[2022-10-02 14:42] VITALS: BP 135/89
== END 2022-10-02 14:51 | disposition home or self-care (01) ==
LOC: ED 09:08
DX: F33.2 Major depressive disorder, recurrent severe without psychotic features (principal)
CPT/HCPCS: 99282; 99284

== ENCOUNTER 2022-10-05 15:53 | Emergency (ER) | payer OTHER ==
[2022-10-05 16:18] LABS: MUDS CUTOFF CONCENTRATIONS CUTOFF CONC BELOW:
[2022-10-05 16:21] LABS: BILIRUBIN,URINE NEGATIVE (NEGATIVE); GLUCOSE, URINE (UA) NEGATIVE (NEGATIVE); KETONES,URINE (UA) NEGATIVE (NEGATIVE); LEUKOCYTE ESTERASE, URINE NEGATIVE (NEGATIVE); NITRITE,URINE NEGATIVE (NEGATIVE); OCCULT BLOOD,URINE NEGATIVE (NEGATIVE); PH,URINE 6.5 PH (5.0-7.5); PROTEIN,URINE NEGATIVE (NEGATIVE); UROBILINOGEN,URINE 0.2 (NORMAL) E.U./dL (NORMAL)
[2022-10-05 16:26] LABS: CLARITY,URINE CLEAR (CLEAR); HCG UR QUAL NEGATIVE
[2022-10-05 16:28] LABS: BASOPHILS # (AUTO) 0.1 10^3/uL (0.0-0.1); BASOPHILS % (AUTO) 0.5 %; EOSINOPHILS # (AUTO) 0.1 10^3/uL (0.0-0.7); HCT - HEMATOCRIT 40.3 % (37.0-47.0); HGB - HEMOGLOBIN 13.2 g/dL (12.0-16.0); LYMPHOCYTES # (AUTO) 2.5 10^3/uL (1.5-3.5); LYMPHOCYTES % (AUTO) 20.2 %; MEAN CORPUSCULAR HEMOGLOBIN 29.7 pg (27.0-31.0); MEAN CORPUSCULAR HGB CONC 32.8 g/dL (32.0-36.0); MEAN CORPUSCULAR VOLUME 90.8 fL (81.0-99.0); MEAN PLATELET VOLUME 9.1 fL (7.9-10.8); MONOCYTES # (AUTO) 0.7 10^3/uL (0.0-1.0); MONOCYTES % (AUTO) 5.4 %; NEUTROPHILS # (AUTO) 8.8 10^3/uL (1.5-6.6); NEUTROPHILS % (AUTO) 72.5 %; PLT - PLATELET COUNT 302 10^3/uL (130-450); RED BLOOD COUNT 4.44 10^6/uL (4.20-5.40); RED CELL DISTRIBUTION WIDTH 12.4 % (12.0-15.0); WHITE BLOOD COUNT 12.1 x10^3/uL (4.8-10.8)
[2022-10-05 16:33] LABS: AMPHETAMINE SCREEN,URINE POSITIVE (NEGATIVE); BARBITURATE SCREEN,UR NEGATIVE (NEGATIVE); BENZODIAZEPINES SCREEN, URINE NEGATIVE (NEGATIVE); COCAINE SCREEN URINE NEGATIVE (NEGATIVE); METHADONE SCREEN, URINE NEGATIVE (NEGATIVE); METHAMPHETAMINES SCREEN, URINE NEGATIVE (NEGATIVE); OPIATE SCREEN, URINE NEGATIVE (NEGATIVE); OXYCODONE SCREEN, URINE NEGATIVE (NEGATIVE); PROPOXYPHENE SCREEN, URINE NEGATIVE (NEGATIVE); THC CANNABINOID SCREEN, URINE POSITIVE (NEGATIVE); TRICYCLIC ANTIDEPRESSANT,URINE NEGATIVE (NEGATIVE)
[2022-10-05 16:37] LABS: ACETAMINOPHEN < 10 ug/mL (10-30); ALBUMIN 4.4 g/dL (3.2-5.5); ALBUMIN/GLOBULIN RATIO 1.5 (1.0-2.2); ALKALINE PHOSPHATASE 36 IU/L (42-121); ALT ALANINE AMINOTRANSFERASE 22 IU/L (10-60); AST ASPARTATE AMINOTRANSFERASE 20 IU/L (10-42); BILIRUBIN,TOTAL 0.6 mg/dL (0.2-1.0); BUN - BLOOD UREA NITROGEN 6 mg/dL (6-20); CALCIUM 8.9 mg/dL (8.5-10.3); CARBON DIOXIDE - CO2 29 mmol/L (21-32); CHLORIDE 98 mmol/L (101-111); CREATININE 0.8 mg/dL (0.4-1.0); ETOH - ETHANOL < 5.0 mg/dL; GFR - MDRD 83 (>89); GLUCOSE 94 mg/dL (70-100); LIPASE 42 U/L (22-51); POTASSIUM 3.6 mmol/L (3.5-5.0); SALICYLATE < 6.0 mg/dL; SODIUM 136 mmol/L (135-145); TOTAL PROTEIN 7.3 g/dL (6.7-8.2)
--- NOTE | 2022-10-05 17:12 | ED Physician Documentation ---
PD HPI MHE - Stated complaint Stated Complaint: SI - Chief complaint Chief Complaint: MHE - History obtained from History obtained from: Patient - Additional information Additional information: Patient is a 31-year-old female presenting for evaluation of suicidal thoughts. She has a history of bipolar and feels that recently her symptoms have been worsening and she has been increasingly feeling suicidal. She an appointment with her psychiatrist today who recommended she come to the emergency department for psychiatric placement given her symptoms. Patient has Not tried to harm herself but does have plans of using chlorine gas or hydrogen sulfide to harm herself. She reports buying Things to create these compounds. She reports that she has never been hospitalized for psychiatric reasons in the past. She does use cannabis but otherwise denies alcohol or other drug use. She has been compliant with her psychiatric medications.She was recently seen here for a ketamine infusion. She states that in the past this is usually helped her but this time it did not. 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 : None HEENT: None Psych: Depression, Anxiety, Bipolar disorder, ADD/ADHD Musculoskeletal: Chronic back pain Derm: None - Past Surgical History Past Surgical History: No General: Cholecystectomy - Present Medications Home Medications: Ambulatory Orders Medication Instructions Recorded Confirmed Lisdexamfetamine Dimesylate 70 mg PO DAILY 12/07/19 10/02/22 [Vyvanse] buPROPion [Wellbutrin Sr] 450 mg PO DAILY 12/07/19 10/02/22 Lurasidone HCl [Latuda] 60 mg PO DAILY 05/16/21 10/02/22 Venlafaxine [Effexor] 3 tab PO DAILY 05/16/21 10/02/22 - Allergies Allergies/Adverse Reactions: Allergies Allergy/AdvReac Type Severity Reaction Status Date / Time quetiapine [From Seroquel] Allergy Unknown Verified 10/05/22 16:03 - Social History Does the pt smoke?: No Smoking Status: Never smoker Does the pt drink ETOH?: No Does the pt have substance abuse?: No - Immunizations Immunizations are current?: Yes - POLST Patient has POLST: No PD ED PE NORMAL - General General: Alert and oriented X 3, No acute distress, Well developed/nourished - HEENT HEENT: Atraumatic - Neck Neck: Supple, no meningeal sign - Cardiac Cardiac: RRR, No murmur - Respiratory Respiratory: No respiratory distress, Clear bilaterally - Abdomen Abdomen: Soft, Non tender - Derm Derm: Warm and dry - Neuro Neuro: Alert and oriented X 3, No motor deficit, Normal speech Results - Vitals Vitals: Vital Signs - 24 hr 10/05/22 10/05/22 10/05/22 15:57 19:32 22:04 Temperature 36.0 C L Heart Rate 106 H Respiratory 16 15 15 Rate Blood Pressure 143/96 H O2 Saturation 100 10/05/22 10/05/22 10/06/22 22:47 23:20 01:16 Temperature 36.7 C Heart Rate 65 Respiratory 15 13 12 Rate Blood Pressure 111/78 O2 Saturation 100 10/06/22 10/06/22 03:04 05:40 Temperature Heart Rate Respiratory 14 12 Rate Blood Pressure O2 Saturation Oxygen O2 Source Room air - Labs Labs: Laboratory Tests 10/05/22 10/05/22 10/05/22 16:12 16:12 16:14 WBC 12.1 H RBC 4.44 Hgb 13.2 Hct 40.3 MCV 90.8 MCH 29.7 MCHC 32.8 RDW 12.4 Plt Count 302 MPV 9.1 Neut # (Auto) 8.8 H Lymph # (Auto) 2.5 [place] # (Auto) 0.7 Eos # (Auto) 0.1 Baso # (Auto) 0.1 Absolute Nucleated RBC 0.00 Nucleated RBC % 0.0 Sodium Potassium Chloride Carbon Dioxide Anion Gap BUN Creatinine Estimated GFR (MDRD) Glucose Calcium Total Bilirubin AST ALT Alkaline Phosphatase Total Protein Albumin Globulin Albumin/Globulin Ratio Lipase TSH Urine Color YELLOW Urine Clarity CLEAR Urine pH 6.5 Ur Specific [place] 1.010 Urine Protein NEGATIVE Urine Glucose (UA) NEGATIVE Urine Ketones NEGATIVE Urine Occult Blood NEGATIVE Urine Nitrite NEGATIVE Urine Bilirubin NEGATIVE Urine Urobilinogen 0.2 (NORMAL) Ur Leukocyte Esterase NEGATIVE Ur Microscopic Review NOT INDICATED Urine Culture Comments NOT INDICATED Urine HCG, Qual NEGATIVE Salicylates Urine Opiates Screen NEGATIVE Ur Oxycodone Screen NEGATIVE Urine Methadone Screen NEGATIVE Ur Propoxyphene Screen NEGATIVE Acetaminophen Ur Barbiturates Screen NEGATIVE Ur Tricyclics Screen NEGATIVE Ur Phencyclidine Scrn NEGATIVE Ur Amphetamine Screen POSITIVE H U Methamphetamines Scrn NEGATIVE U Benzodiazepines Scrn NEGATIVE Urine Cocaine Screen NEGATIVE U Cannabinoids Screen POSITIVE H Ethyl Alcohol SARS-CoV-2 (PCR) NOT DETECTED 10/05/22 10/05/22 16:14 16:14 WBC RBC Hgb Hct MCV MCH MCHC RDW Plt Count MPV Neut # (Auto) Lymph # (Auto) [place] # (Auto) Eos # (Auto) Baso # (Auto) Absolute Nucleated RBC Nucleated RBC % Sodium 136 Potassium 3.6 Chloride 98 L Carbon Dioxide 29 Anion Gap 9.0 BUN 6 Creatinine 0.8 Estimated GFR (MDRD) 83 L Glucose 94 Calcium 8.9 Total Bilirubin 0.6 AST 20 ALT 22 Alkaline Phosphatase 36 L Total Protein 7.3 Albumin 4.4 Globulin 2.9 Albumin/Globulin Ratio 1.5 Lipase 42 TSH 1.00 Urine Color Urine Clarity Urine pH Ur Specific [place] Urine Protein Urine Glucose (UA) Urine Ketones Urine Occult Blood Urine Nitrite Urine Bilirubin Urine Urobilinogen Ur Leukocyte Esterase Ur Microscopic Review Urine Culture Comments Urine HCG, Qual Salicylates < 6.0 Urine Opiates Screen Ur Oxycodone Screen Urine Methadone Screen Ur Propoxyphene Screen Acetaminophen < 10 L Ur Barbiturates Screen Ur Tricyclics Screen Ur Phencyclidine Scrn Ur Amphetamine Screen U Methamphetamines Scrn U Benzodiazepines Scrn Urine Cocaine Screen U Cannabinoids Screen Ethyl Alcohol < 5.0 SARS-CoV-2 (PCR) PD Medical Decision Making - ED course Complexity details: reviewed results, re-evaluated patient, d/w patient ED course: Patient presenting for evaluation of suicidal thoughts. She is calm and cooperative. Her labs were reviewed. She has been medically cleared.Social work consult was placed. Patient is currently voluntary.Patient signed out at shift change. Departure - Departure Disposition: 65 Psych Hosp/Unit DC/Xfer Clinical Impression: Suicidal thoughts, Bipolar 2 disorder Condition: Stable
[2022-10-05 22:48] VITALS: BP 111/78
--- NOTE | 2022-10-06 09:42 | ED Physician Documentation ---
ED Addendum - Addendum Addendum: Patient seen on morning rounds. No issues overnight. Patient was accepted to [facility] and COBRA forms were signed by overnight physician.
== END 2022-10-06 09:21 ==
LOC: ED 15:53
DX: R45.851 Suicidal ideations (principal); F31.81 Bipolar II disorder; Z20.822 Contact with and (suspected) exposure to COVID-19
CPT/HCPCS: 36415; 80053; 80306; 80307; 80320; 80329; 81001; 81003; 81025; 83690; 84443; 85025; 87086; 99285

== ENCOUNTER 2022-10-17 18:15 | Emergency (ER) | payer OTHER ==
[2022-10-17] MEDS ORDERED: KETAMINE 35 MG in SODIUM CHLORIDE 0.9% 100ML 100 ML IV STA (18:33)
--- NOTE | 2022-10-17 18:38 | ED Physician Documentation ---
PD HPI MHE - Stated complaint Stated Complaint: MHE - Chief complaint Chief Complaint: MHE - History obtained from History obtained from: Patient - Additional information Additional information: Patient is a 32-year-old female with a longstanding history of depression. She is here requesting a ketamine infusion. She tends to receive these about once per month. She was recently hospitalized at [facility] and feels that she is doing fairly well after the hospitalization, but rates her suicidality as a 4 out of 10, she states she normally lives at about a 2 out of 10. She is taking her medications as prescribed. No new stressors. No suicide attempts. She is not . 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 : None HEENT: None Psych: Depression, Anxiety, Bipolar disorder, ADD/ADHD Musculoskeletal: Chronic back pain Derm: None - Past Surgical History Past Surgical History: No General: Cholecystectomy - Present Medications Home Medications: Ambulatory Orders Medication Instructions Recorded Confirmed Lisdexamfetamine Dimesylate 70 mg PO DAILY 12/07/19 10/02/22 [Vyvanse] buPROPion [Wellbutrin Sr] 450 mg PO DAILY 12/07/19 10/02/22 Lurasidone HCl [Latuda] 60 mg PO DAILY 05/16/21 10/02/22 Venlafaxine [Effexor] 3 tab PO DAILY 05/16/21 10/02/22 - Allergies Allergies/Adverse Reactions: Allergies Allergy/AdvReac Type Severity Reaction Status Date / Time quetiapine [From Seroquel] Allergy Unknown Verified 10/17/22 18:28 - Social History Does the pt smoke?: No Smoking Status: Never smoker Does the pt drink ETOH?: No Does the pt have substance abuse?: No - Immunizations Immunizations are current?: Yes - POLST Patient has POLST: No PD ED PE NORMAL - Vitals Vital signs reviewed: Yes - General General: Alert and oriented X 3, No acute distress - HEENT HEENT: PERRL, Moist mucous membranes, Pharynx benign - Neck Neck: Supple, no meningeal sign - Cardiac Cardiac: RRR, Strong equal pulses - Respiratory Respiratory: No respiratory distress, Clear bilaterally - Abdomen Abdomen: Soft, Non tender, Non distended - Back Back: No CVA TTP, No spinal TTP - Derm Derm: Warm and dry, No rash - Extremities Extremities: No edema, No calf tenderness / cord - Neuro Neuro: Alert and oriented X 3 - Psych Psych: Normal mood, Normal affect Results - Vitals Vitals: Vital Signs - 24 hr 10/17/22 18:23 Temperature 36.5 C Heart Rate 102 H Respiratory 20 Rate Blood Pressure 138/97 H O2 Saturation 100 Oxygen O2 Source Room air PD Medical Decision Making - ED course Complexity details: reviewed old records, considered differential, d/w patient ED course: Patient received her normal ketamine infusion. She feels much better. She is not currently suicidal or homicidal. Has no plans. Is able to contract for safety. We will have her follow-up with her doctor for further care. Patient counseled regarding signs and symptoms for which I believe and urgent re- evaluation would be necessary. Patient with good understanding of and agreement to plan and is comfortable going home at this time This document was made in part using voice recognition software. While efforts are made to proofread this document, sound alike and grammatical errors may occur. Departure - Departure Disposition: Home, Self Care Clinical Impression: Depression Qualifiers: Depression Type: unspecified Qualified Code(s): F32.A - Depression, unspecified Condition: Good Instructions: ED Depression Follow-Up: Your,doctor in 1 week [Other] Comments: You received a ketamine infusion today for your depression. Please return if you worsen. Please continue your medications at home. Please follow-up with your doctor for further care. Crisis Line and is available to talk to someone [email or web address] is also available to chat with someone online if you prefer. There are also many resources on this website and apps for your phone to help with your mental health You can also text the word START to [phone] to chat with someome via text.
[2022-10-17] MEDS ORDERED: KETAMINE 500 MG/10 ML VIAL ONE (19:06)
[2022-10-17 20:00] VITALS: BP 146/102
== END 2022-10-17 20:16 | disposition home or self-care (01) ==
LOC: ED 18:15
DX: F32.A Depression, unspecified (principal)
CPT/HCPCS: 96365; 99284

== ENCOUNTER 2022-10-28 10:59 | Emergency (ER) | payer OTHER ==
[2022-10-28 11:36] LABS: BASOPHILS # (AUTO) 0.1 10^3/uL (0.0-0.1); BASOPHILS % (AUTO) 0.5 %; EOSINOPHILS # (AUTO) 0.2 10^3/uL (0.0-0.7); EOSINOPHILS % (AUTO) 1.3 %; HCT - HEMATOCRIT 41.2 % (37.0-47.0); HGB - HEMOGLOBIN 13.3 g/dL (12.0-16.0); LYMPHOCYTES # (AUTO) 2.5 10^3/uL (1.5-3.5); MEAN CORPUSCULAR HEMOGLOBIN 29.4 pg (27.0-31.0); MEAN CORPUSCULAR HGB CONC 32.3 g/dL (32.0-36.0); MEAN CORPUSCULAR VOLUME 91.2 fL (81.0-99.0); MONOCYTES # (AUTO) 0.9 10^3/uL (0.0-1.0); MONOCYTES % (AUTO) 6.8 %; NEUTROPHILS # (AUTO) 9.5 10^3/uL (1.5-6.6); NEUTROPHILS % (AUTO) 72.1 %; PLT - PLATELET COUNT 383 10^3/uL (130-450); RED BLOOD COUNT 4.52 10^6/uL (4.20-5.40); RED CELL DISTRIBUTION WIDTH 12.6 % (12.0-15.0); WHITE BLOOD COUNT 13.2 x10^3/uL (4.8-10.8)
[2022-10-28 11:42] LABS: MUDS CUTOFF CONCENTRATIONS CUTOFF CONC BELOW:
[2022-10-28 11:46] LABS: BILIRUBIN,URINE NEGATIVE (NEGATIVE); GLUCOSE, URINE (UA) NEGATIVE (NEGATIVE); KETONES,URINE (UA) NEGATIVE (NEGATIVE); LEUKOCYTE ESTERASE, URINE NEGATIVE (NEGATIVE); NITRITE,URINE NEGATIVE (NEGATIVE); OCCULT BLOOD,URINE NEGATIVE (NEGATIVE); PROTEIN,URINE NEGATIVE (NEGATIVE); UROBILINOGEN,URINE 0.2 (NORMAL) E.U./dL (NORMAL)
[2022-10-28 11:47] LABS: CLARITY,URINE CLEAR (CLEAR); HCG UR QUAL NEGATIVE
[2022-10-28 11:54] LABS: ACETAMINOPHEN < 10 ug/mL (10-30); ALBUMIN 4.7 g/dL (3.2-5.5); ALBUMIN/GLOBULIN RATIO 1.6 (1.0-2.2); ALKALINE PHOSPHATASE 36 IU/L (42-121); ALT ALANINE AMINOTRANSFERASE 17 IU/L (10-60); AST ASPARTATE AMINOTRANSFERASE 18 IU/L (10-42); BILIRUBIN,TOTAL 0.6 mg/dL (0.2-1.0); BUN - BLOOD UREA NITROGEN 9 mg/dL (6-20); CALCIUM 9.2 mg/dL (8.5-10.3); CARBON DIOXIDE - CO2 29 mmol/L (21-32); CHLORIDE 98 mmol/L (101-111); CREATININE 0.8 mg/dL (0.4-1.0); ETOH - ETHANOL < 5.0 mg/dL; GFR - MDRD 83 (>89); GLUCOSE 72 mg/dL (70-100); LIPASE 51 U/L (22-51); POTASSIUM 3.8 mmol/L (3.5-5.0); SALICYLATE < 6.0 mg/dL; SODIUM 137 mmol/L (135-145); TOTAL PROTEIN 7.7 g/dL (6.7-8.2)
[2022-10-28] MEDS ORDERED: KETAMINE 40 MG in SODIUM CHLORIDE 0.9% 100ML 100 ML IV STA (12:00)
--- NOTE | 2022-10-28 12:01 | ED Physician Documentation ---
PD HPI MHE - Stated complaint Stated Complaint: SI - Chief complaint Chief Complaint: MHE - History obtained from History obtained from: Patient - Additional information Additional information: 32-year-old woman with severe depression, history of multiple suicide attempts. She was hospitalized at [facility] a couple weeks ago which she felt like was useful, despite that had a suicide attempt in the interim and today tried to hang herself and got as far as suspending herself. At [facility] she was in intensive group therapy and her Latuda was increased and her Effexor decreased a bit. 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 : None HEENT: None Psych: Depression, Anxiety, Bipolar disorder, ADD/ADHD Musculoskeletal: Chronic back pain Derm: None - Past Surgical History Past Surgical History: No General: Cholecystectomy - Present Medications Home Medications: Ambulatory Orders Medication Instructions Recorded Confirmed Lisdexamfetamine Dimesylate 70 mg PO DAILY 12/07/19 10/28/22 [Vyvanse] buPROPion [Wellbutrin Sr] 450 mg PO DAILY 12/07/19 10/28/22 Lurasidone HCl [Latuda] 120 mg PO QPM 05/16/21 10/28/22 Venlafaxine [Effexor] 3 tab PO DAILY 05/16/21 10/28/22 - Allergies Allergies/Adverse Reactions: Allergies Allergy/AdvReac Type Severity Reaction Status Date / Time quetiapine [From Seroquel] Allergy Unknown Verified 10/17/22 18:28 - Social History Does the pt smoke?: No Smoking Status: Never smoker Does the pt drink ETOH?: No Does the pt have substance abuse?: No - Immunizations Immunizations are current?: Yes - POLST Patient has POLST: No PD ED PE NORMAL - Vitals Vital signs reviewed: Yes - General General: Alert and oriented X 3, No acute distress - HEENT HEENT: PERRL, EOMI - Neck Neck: Supple, no meningeal sign, No bony TTP - Cardiac Cardiac: RRR, No murmur - Respiratory Respiratory: No respiratory distress, Clear bilaterally - Abdomen Abdomen: Non tender - Back Back: No CVA TTP, No spinal TTP - Derm Derm: Normal color, Warm and dry - Extremities Extremities: No edema, No calf tenderness / cord - Neuro Neuro: Alert and oriented X 3, Normal speech Eye Opening: Spontaneous Motor: Obeys Commands Verbal: Oriented GCS Score: 15 - Psych Psych: Normal mood, Normal affect Results - Vitals Vitals: Vital Signs - 24 hr 10/28/22 10/28/22 11:16 15:00 Temperature 36.8 C Heart Rate 97 93 Respiratory 16 12 Rate Blood Pressure 139/90 H 138/89 H O2 Saturation 99 100 Oxygen O2 Source Room air - Labs Labs: Laboratory Tests 10/28/22 10/28/22 10/28/22 11:30 11:30 11:32 WBC 13.2 H RBC 4.52 Hgb 13.3 Hct 41.2 MCV 91.2 MCH 29.4 MCHC 32.3 RDW 12.6 Plt Count 383 MPV 9.0 Neut # (Auto) 9.5 H Lymph # (Auto) 2.5 [place] # (Auto) 0.9 Eos # (Auto) 0.2 Baso # (Auto) 0.1 Absolute Nucleated RBC 0.00 Nucleated RBC % 0.0 Sodium Potassium Chloride Carbon Dioxide Anion Gap BUN Creatinine Estimated GFR (MDRD) Glucose Calcium Total Bilirubin AST ALT Alkaline Phosphatase Total Protein Albumin Globulin Albumin/Globulin Ratio Lipase TSH Urine Color YELLOW Urine Clarity CLEAR Urine pH 6.0 Ur Specific [place] <=1.005 Urine Protein NEGATIVE Urine Glucose (UA) NEGATIVE Urine Ketones NEGATIVE Urine Occult Blood NEGATIVE Urine Nitrite NEGATIVE Urine Bilirubin NEGATIVE Urine Urobilinogen 0.2 (NORMAL) Ur Leukocyte Esterase NEGATIVE Ur Microscopic Review NOT INDICATED Urine Culture Comments NOT INDICATED Urine HCG, Qual NEGATIVE Salicylates Urine Opiates Screen NEGATIVE Ur Oxycodone Screen NEGATIVE Urine Methadone Screen NEGATIVE Ur Propoxyphene Screen NEGATIVE Acetaminophen Ur Barbiturates Screen NEGATIVE Ur Tricyclics Screen NEGATIVE Ur Phencyclidine Scrn NEGATIVE Ur Amphetamine Screen POSITIVE H U Methamphetamines Scrn NEGATIVE U Benzodiazepines Scrn NEGATIVE Urine Cocaine Screen NEGATIVE U Cannabinoids Screen POSITIVE H Ethyl Alcohol SARS-CoV-2 (PCR) NOT DETECTED 10/28/22 10/28/22 11:32 11:32 WBC RBC Hgb Hct MCV MCH MCHC RDW Plt Count MPV Neut # (Auto) Lymph # (Auto) [place] # (Auto) Eos # (Auto) Baso # (Auto) Absolute Nucleated RBC Nucleated RBC % Sodium 137 Potassium 3.8 Chloride 98 L Carbon Dioxide 29 Anion Gap 10.0 BUN 9 Creatinine 0.8 Estimated GFR (MDRD) 83 L Glucose 72 Calcium 9.2 Total Bilirubin 0.6 AST 18 ALT 17 Alkaline Phosphatase 36 L Total Protein 7.7 Albumin 4.7 Globulin 3.0 Albumin/Globulin Ratio 1.6 Lipase 51 TSH 0.60 Urine Color Urine Clarity Urine pH Ur Specific [place] Urine Protein Urine Glucose (UA) Urine Ketones Urine Occult Blood Urine Nitrite Urine Bilirubin Urine Urobilinogen Ur Leukocyte Esterase Ur Microscopic Review Urine Culture Comments Urine HCG, Qual Salicylates < 6.0 Urine Opiates Screen Ur Oxycodone Screen Urine Methadone Screen Ur Propoxyphene Screen Acetaminophen < 10 L Ur Barbiturates Screen Ur Tricyclics Screen Ur Phencyclidine Scrn Ur Amphetamine Screen U Methamphetamines Scrn U Benzodiazepines Scrn Urine Cocaine Screen U Cannabinoids Screen Ethyl Alcohol < 5.0 SARS-CoV-2 (PCR) PD Medical Decision Making - ED course ED course: 32-year-old woman presents after an aborted suicide attempt requesting hospitalization which is appropriate. Telepsych consultation done and agrees with need for hospitalization, patient offered and accepted ketamine, tele- psychiatrist did not have any issue with that per se. We did discuss reporting to CPS and I reported this to the social sciences professor and their team will address that. That is because the suicide attempt was done with the 2 small children at home. We are waiting for a bed at [facility], that was the patient's preferred dispositi on. [facility] called us after several hours and told us that because the patient had left early from her dryer treatment plan she was no longer welcome back. I was discussing this with the patient at that point and she stated she was no longer suicidal and would like to go home. Given the above events, I told her with all the respect that we would need to have the DCR evaluate her prior to discharge as the events of today were very high risk. Care to overnight EDMD at shift chg pending DCR eval Departure - Departure Clinical Impression: Suicide attempt Condition: Stable
[2022-10-28 12:10] LABS: AMPHETAMINE SCREEN,URINE POSITIVE (NEGATIVE); BARBITURATE SCREEN,UR NEGATIVE (NEGATIVE); BENZODIAZEPINES SCREEN, URINE NEGATIVE (NEGATIVE); COCAINE SCREEN URINE NEGATIVE (NEGATIVE); METHADONE SCREEN, URINE NEGATIVE (NEGATIVE); METHAMPHETAMINES SCREEN, URINE NEGATIVE (NEGATIVE); OPIATE SCREEN, URINE NEGATIVE (NEGATIVE); OXYCODONE SCREEN, URINE NEGATIVE (NEGATIVE); PROPOXYPHENE SCREEN, URINE NEGATIVE (NEGATIVE); THC CANNABINOID SCREEN, URINE POSITIVE (NEGATIVE); TRICYCLIC ANTIDEPRESSANT,URINE NEGATIVE (NEGATIVE)
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
[2022-10-28] MEDS ORDERED: LORazepam 2 MG/ML VIAL IVP STA (21:53)
[2022-10-29] MEDS ORDERED: LORazepam 1 MG TABLET PO STA ×2 (07:51→16:46)
--- NOTE | 2022-10-29 11:56 | ED Physician Documentation ---
ED Addendum - Addendum Addendum: 10/29/22 11:56 Seen overnight by the DCR but converted back to a voluntary status. Social work arranged for placement at [facility] under the care of Jonh Jewell. Cobras were completed and she is stable for transport. Disposition: Transferred to [facility] behavioral for psychiatric care Condition: Stable
[2022-10-29 17:10] VITALS: BP 139/87
== END 2022-10-29 17:32 ==
LOC: ED 10:59
DX: T71.162A Asphyxiation due to hanging, intentional self-harm, initial encounter (principal); T14.91XA Suicide attempt, initial encounter; F41.9 Anxiety disorder, unspecified; Z20.822 Contact with and (suspected) exposure to COVID-19; F90.9 Attention-deficit hyperactivity disorder, unspecified type; F31.81 Bipolar II disorder; X83.8XXA Intentional self-harm by other specified means, initial encounter; Y92.009 Unspecified place in unspecified non-institutional (private) residence as the place of occurrence of the external cause
CPT/HCPCS: 36415; 80053; 80306; 80307; 80320; 80329; 81003; 81025; 83690; 84443; 85025; 87635; 90834; 96365; 96375; 99285; J2060; J8499; Q3014; 81001; 87086

== ENCOUNTER 2022-11-27 12:25 | Emergency (ER) | payer OTHER ==
[2022-11-27] MEDS ORDERED: KETAMINE 40 MG in SODIUM CHLORIDE 0.9% 100ML 100 ML IV STA (12:45)
--- NOTE | 2022-11-27 12:56 | ED Physician Documentation ---
PD HPI MHE - Stated complaint Stated Complaint: SI - Chief complaint Chief Complaint: MHE - History obtained from History obtained from: Patient - Additional information Additional information: She has chronic suicidal ideation which is increased over the last 2 days. She feels safe and declines hospitalization but would like a ketamine infusion as she has had in the past. No specific plan right now. PD PAST MEDICAL HISTORY - Past Medical History Cardiovascular: None Respiratory: None Neuro: None Endocrine/Autoimmune: None GI: Ulcers CONSULTANT DIETITIAN: None : None HEENT: None Psych: Depression, Anxiety, Bipolar disorder, ADD/ADHD Musculoskeletal: Chronic back pain Derm: None - Past Surgical History Past Surgical History: No General: Cholecystectomy - Present Medications Home Medications: Ambulatory Orders Medication Instructions Recorded Confirmed Lisdexamfetamine Dimesylate 70 mg PO DAILY 12/07/19 10/28/22 [Vyvanse] buPROPion [Wellbutrin Sr] 450 mg PO DAILY 12/07/19 10/28/22 Lurasidone HCl [Latuda] 120 mg PO QPM 05/16/21 10/28/22 Venlafaxine [Effexor] 3 tab PO DAILY 05/16/21 10/28/22 - Allergies Allergies/Adverse Reactions: Allergies Allergy/AdvReac Type Severity Reaction Status Date / Time lamotrigine [From Lamictal] Allergy Anxiety Verified 11/27/22 12:34 quetiapine [From Seroquel] Allergy Unknown Verified 11/27/22 12:34 - Social History Does the pt smoke?: No Smoking Status: Never smoker Does the pt drink ETOH?: No Does the pt have substance abuse?: No - Immunizations Immunizations are current?: Yes - POLST Patient has POLST: No PD ED PE NORMAL - Vitals Vital signs reviewed: Yes - General General: Alert and oriented X 3, No acute distress - Derm Derm: No rash - Neuro Neuro: Alert and oriented X 3, Normal speech - Psych Psych: Normal mood, Normal affect Results - Vitals Vitals: Vital Signs - 24 hr 11/27/22 11/27/22 11/27/22 12:28 12:53 13:21 Temperature 36.1 C L Heart Rate 115 H 103 H 106 H Respiratory 18 20 22 Rate Blood Pressure 141/79 H 128/85 H O2 Saturation 96 100 100 11/27/22 13:58 Temperature Heart Rate 109 H Respiratory 12 Rate Blood Pressure 137/91 H O2 Saturation 100 Oxygen O2 Source Room air PD Medical Decision Making - ED course ED course: 32-year-old woman presents with suicidal thoughts, at her request received 40 mg of ketamine over 40 minutes with improvement in her symptoms. She requested discharge and declined hospitalization. States she is safe without active suicidality or plan at discharge. Departure - Departure Disposition: 01 Home, Self Care Clinical Impression: Suicidal thoughts Condition: Good Record reviewed to determine appropriate education?: Yes Instructions: ED Depression Comments: Call your doctor to arrange a follow-up appointment, make the next available appointment. In the interim, return anytime if worse or if new symptoms develop. Do not drive today. Discharge Date/Time: 11/27/22 14:07
[2022-11-27 13:58] VITALS: BP 137/91
== END 2022-11-27 14:07 | disposition home or self-care (01) ==
LOC: ED 12:25
DX: R45.851 Suicidal ideations (principal)
CPT/HCPCS: 96365; 99283

== ENCOUNTER 2022-12-10 12:55 | Emergency (ER) | payer OTHER ==
--- NOTE | 2022-12-10 13:34 | ED Physician Documentation ---
PD HPI MHE - Stated complaint Stated Complaint: MHE/SI - Chief complaint Chief Complaint: MHE - History obtained from History obtained from: Patient (32-year-old woman presents with thoughts of self for speciation. She would like to go to an inpatient facility. 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: None : None HEENT: None Psych: Depression, Anxiety, Bipolar disorder, ADD/ADHD Musculoskeletal: Chronic back pain Derm: None - Past Surgical History Past Surgical History: No General: Cholecystectomy - Present Medications Home Medications: Ambulatory Orders Medication Instructions Recorded Confirmed Lisdexamfetamine Dimesylate 70 mg PO DAILY 12/07/19 12/10/22 [Vyvanse] buPROPion [Wellbutrin Sr] 450 mg PO DAILY 12/07/19 12/10/22 Lurasidone HCl [Latuda] 120 mg PO QPM 05/16/21 12/10/22 Venlafaxine [Effexor] 300 mg PO DAILY 05/16/21 12/10/22 Buspirone HCl 20 mg PO BID 12/10/22 12/10/22 LORazepam [Ativan] 0.5 mg PO ONCE PRN 12/10/22 12/10/22 - Allergies Allergies/Adverse Reactions: Allergies Allergy/AdvReac Type Severity Reaction Status Date / Time lamotrigine [From Lamictal] Allergy Anxiety Verified 12/10/22 13:25 quetiapine [From Seroquel] Allergy Unknown Verified 12/10/22 13:25 - Social History Does the pt smoke?: No Smoking Status: Never smoker Does the pt drink ETOH?: No Does the pt have substance abuse?: No - Immunizations Immunizations are current?: Yes - POLST Patient has POLST: No PD ED PE NORMAL - Vitals Vital signs reviewed: Yes - General General: Alert and oriented X 3, No acute distress - HEENT HEENT: PERRL, EOMI - Neck Neck: Supple, no meningeal sign - Cardiac Cardiac: RRR, No murmur - Respiratory Respiratory: No respiratory distress, Clear bilaterally - Abdomen Abdomen: Non tender - Derm Derm: No rash - Neuro Neuro: Alert and oriented X 3, No motor deficit, No sensory deficit, Normal speech Results - Vitals Vitals: Vital Signs - 24 hr 12/10/22 12/10/22 12/11/22 13:20 21:25 02:48 Temperature 36.8 C 36.4 C L 36.8 C Heart Rate 117 H 99 93 Respiratory 18 18 20 Rate Blood Pressure 147/99 H 114/70 121/78 O2 Saturation 99 95 98 Oxygen O2 Source Room air - EKG (time done) 2040 EKG releavant findings:: EKG personally interpreted by author of this note. Relevant findings are: Rate: Rate (enter#) (108) Rhythm: Sinus tachycardia [place]ir[place]: Normal Intervals: Normal [place] QRS: Normal Ischemia: Normal ST segments - Labs Labs: Laboratory Tests 12/10/22 12/10/22 12/10/22 13:37 13:37 13:37 WBC 8.0 RBC 4.51 Hgb 13.5 Hct 41.1 MCV 91.1 MCH 29.9 MCHC 32.8 RDW 12.7 Plt Count 295 MPV 9.2 Neut # (Auto) 4.8 Lymph # (Auto) 2.3 [place] # (Auto) 0.7 Eos # (Auto) 0.2 Baso # (Auto) 0.1 Absolute Nucleated RBC 0.00 Nucleated RBC % 0.0 Sodium 138 Potassium 4.4 Chloride 101 Carbon Dioxide 30 Anion Gap 7.0 BUN 12 Creatinine 0.8 Estimated GFR (MDRD) 83 L Glucose 112 H Calcium 9.8 Total Bilirubin 0.4 AST 19 ALT 18 Alkaline Phosphatase 31 L Total Protein 7.4 Albumin 4.3 Globulin 3.1 Albumin/Globulin Ratio 1.4 Lipase 47 TSH 0.39 Urine Color Urine Clarity Urine pH Ur Specific Riley Urine Protein Urine Glucose (UA) Urine Ketones Urine Occult Blood Urine Nitrite Urine Bilirubin Urine Urobilinogen Ur Leukocyte Esterase Ur Microscopic Review Urine Culture Comments Urine HCG, Qual Salicylates < 6.0 Urine Opiates Screen Ur Oxycodone Screen Urine Methadone Screen Ur Propoxyphene Screen Acetaminophen < 10 L Ur Barbiturates Screen Ur Tricyclics Screen Ur Phencyclidine Scrn Ur Amphetamine Screen U Methamphetamines Scrn U Benzodiazepines Scrn Urine Cocaine Screen U Cannabinoids Screen Ethyl Alcohol < 5.0 SARS-CoV-2 (PCR) 12/10/22 12/10/22 13:44 13:49 WBC RBC Hgb Hct MCV MCH MCHC RDW Plt Count MPV Neut # (Auto) Lymph # (Auto) [place] # (Auto) Eos # (Auto) Baso # (Auto) Absolute Nucleated RBC Nucleated RBC % Sodium Potassium Chloride Carbon Dioxide Anion Gap BUN Creatinine Estimated GFR (MDRD) Glucose Calcium Total Bilirubin AST ALT Alkaline Phosphatase Total Protein Albumin Globulin Albumin/Globulin Ratio Lipase TSH Urine Color YELLOW Urine Clarity CLEAR Urine pH 7.0 Ur Specific Riley 1.010 Urine Protein NEGATIVE Urine Glucose (UA) NEGATIVE Urine Ketones NEGATIVE Urine Occult Blood NEGATIVE Urine Nitrite NEGATIVE Urine Bilirubin NEGATIVE Urine Urobilinogen 0.2 (NORMAL) Ur Leukocyte Esterase NEGATIVE Ur Microscopic Review NOT INDICATED Urine Culture Comments NOT INDICATED Urine HCG, Qual NEGATIVE Salicylates Urine Opiates Screen NEGATIVE Ur Oxycodone Screen NEGATIVE Urine Methadone Screen NEGATIVE Ur Propoxyphene Screen NEGATIVE Acetaminophen Ur Barbiturates Screen NEGATIVE Ur Tricyclics Screen NEGATIVE Ur Phencyclidine Scrn NEGATIVE Ur Amphetamine Screen POSITIVE H U Methamphetamines Scrn NEGATIVE U Benzodiazepines Scrn POSITIVE H Urine Cocaine Screen NEGATIVE U Cannabinoids Screen POSITIVE H Ethyl Alcohol SARS-CoV-2 (PCR) NOT DETECTED PD Medical Decision Making - ED course Complexity details: reviewed results (CBC - nl, CMP - nl, UA - nl, UPT - neg, TSH -nl, Utox- cannabis + rxed meds.) ED course: 32yo female arrives for voluntary psych hospitalization. Seen by telepsych,. Packet faxed to [facility] (pt preference) p telepsych eval complete. Care to overnight EDMD pending hopeful acceptance. Departure - Departure Disposition: 65 Psych Hosp/Unit DC/Xfer Clinical Impression: Bipolar 2 disorder, Suicidal thoughts Condition: Stable
[2022-12-10 13:42] LABS: BASOPHILS # (AUTO) 0.1 10^3/uL (0.0-0.1); BASOPHILS % (AUTO) 0.8 %; EOSINOPHILS # (AUTO) 0.2 10^3/uL (0.0-0.7); HCT - HEMATOCRIT 41.1 % (37.0-47.0); HGB - HEMOGLOBIN 13.5 g/dL (12.0-16.0); LYMPHOCYTES # (AUTO) 2.3 10^3/uL (1.5-3.5); LYMPHOCYTES % (AUTO) 28.8 %; MEAN CORPUSCULAR HEMOGLOBIN 29.9 pg (27.0-31.0); MEAN CORPUSCULAR HGB CONC 32.8 g/dL (32.0-36.0); MEAN CORPUSCULAR VOLUME 91.1 fL (81.0-99.0); MEAN PLATELET VOLUME 9.2 fL (7.9-10.8); MONOCYTES # (AUTO) 0.7 10^3/uL (0.0-1.0); MONOCYTES % (AUTO) 8.2 %; NEUTROPHILS # (AUTO) 4.8 10^3/uL (1.5-6.6); NEUTROPHILS % (AUTO) 59.9 %; PLT - PLATELET COUNT 295 10^3/uL (130-450); RED BLOOD COUNT 4.51 10^6/uL (4.20-5.40); RED CELL DISTRIBUTION WIDTH 12.7 % (12.0-15.0)
[2022-12-10 13:52] LABS: MUDS CUTOFF CONCENTRATIONS CUTOFF CONC BELOW:
[2022-12-10 14:00] LABS: BILIRUBIN,URINE NEGATIVE (NEGATIVE); GLUCOSE, URINE (UA) NEGATIVE (NEGATIVE); KETONES,URINE (UA) NEGATIVE (NEGATIVE); LEUKOCYTE ESTERASE, URINE NEGATIVE (NEGATIVE); NITRITE,URINE NEGATIVE (NEGATIVE); OCCULT BLOOD,URINE NEGATIVE (NEGATIVE); PROTEIN,URINE NEGATIVE (NEGATIVE); UROBILINOGEN,URINE 0.2 (NORMAL) E.U./dL (NORMAL)
[2022-12-10 14:01] LABS: ACETAMINOPHEN < 10 ug/mL (10-30); ALBUMIN 4.3 g/dL (3.2-5.5); ALBUMIN/GLOBULIN RATIO 1.4 (1.0-2.2); ALKALINE PHOSPHATASE 31 IU/L (42-121); ALT ALANINE AMINOTRANSFERASE 18 IU/L (10-60); AST ASPARTATE AMINOTRANSFERASE 19 IU/L (10-42); BILIRUBIN,TOTAL 0.4 mg/dL (0.2-1.0); BUN - BLOOD UREA NITROGEN 12 mg/dL (6-20); CALCIUM 9.8 mg/dL (8.5-10.3); CARBON DIOXIDE - CO2 30 mmol/L (21-32); CHLORIDE 101 mmol/L (101-111); CREATININE 0.8 mg/dL (0.4-1.0); ETOH - ETHANOL < 5.0 mg/dL; GFR - MDRD 83 (>89); GLUCOSE 112 mg/dL (70-100); LIPASE 47 U/L (22-51); POTASSIUM 4.4 mmol/L (3.5-5.0); SALICYLATE < 6.0 mg/dL; SODIUM 138 mmol/L (135-145); TOTAL PROTEIN 7.4 g/dL (6.7-8.2)
[2022-12-10 14:03] LABS: CLARITY,URINE CLEAR (CLEAR); HCG UR QUAL NEGATIVE
[2022-12-10 14:11] LABS: AMPHETAMINE SCREEN,URINE POSITIVE (NEGATIVE); BARBITURATE SCREEN,UR NEGATIVE (NEGATIVE); BENZODIAZEPINES SCREEN, URINE POSITIVE (NEGATIVE); COCAINE SCREEN URINE NEGATIVE (NEGATIVE); METHADONE SCREEN, URINE NEGATIVE (NEGATIVE); METHAMPHETAMINES SCREEN, URINE NEGATIVE (NEGATIVE); OPIATE SCREEN, URINE NEGATIVE (NEGATIVE); OXYCODONE SCREEN, URINE NEGATIVE (NEGATIVE); PROPOXYPHENE SCREEN, URINE NEGATIVE (NEGATIVE); THC CANNABINOID SCREEN, URINE POSITIVE (NEGATIVE); TRICYCLIC ANTIDEPRESSANT,URINE NEGATIVE (NEGATIVE)
[2022-12-10] MEDS ORDERED: LORazepam 1 MG TABLET PO STA (14:22)
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
[2022-12-11 10:09] VITALS: BP 140/93
--- NOTE | 2022-12-11 10:52 | ED Physician Documentation ---
ED Addendum - Addendum Addendum: 12/11/22 10:50 The patient has been doing well overnight. No particular interactions required. Has been eating okay. Arrangements had been made for her to go to a psychiatric facility and transportation arranged this morning when the facility can accept her. Transportation is here for the patient. She is still cooperative and in agreement on being hospitalized. Disposition: The patient is transferred to psychiatric facility in stable condition. Diagnoses: 1. Bipolar 2 disorder 2. Suicidal ideation
== END 2022-12-11 10:45 ==
LOC: ED 12:55
DX: F31.63 Bipolar disorder, current episode mixed, severe, without psychotic features (principal); F60.3 Borderline personality disorder; R45.851 Suicidal ideations; Z20.822 Contact with and (suspected) exposure to COVID-19
CPT/HCPCS: 36415; 80053; 80306; 80307; 80320; 80329; 81003; 81025; 83690; 84443; 85025; 87635; 93005; 99285; G0425; J8499; Q3014; 81001; 87086

== ENCOUNTER 2023-01-10 09:46 | Emergency (ER) | payer OTHER ==
--- NOTE | 2023-01-10 11:57 | ED Physician Documentation ---
PD HPI MHE - Stated complaint Stated Complaint: SI - Chief complaint Chief Complaint: MHE - History obtained from History obtained from: Patient - History of Present Illness Primary symptom: Suicidal ideation. No: Suicide attempt Timing - onset: How many days ago (The patient has had several days to a week or so of increased suicidal ideation and anxiety. No plan no and no attempts. She has had similar symptoms in the past and has had improvement with ketamine infusions. Requesting that. She has seen her counselor regularly.) Similar symptoms before: Diagnosis (depression) Recently seen: Clinic (counseling) Review of Systems Constitutional: denies: Fever, Chills Nose: denies: Rhinorrhea / runny nose, Congestion Throat: denies: Sore throat Respiratory: denies: Cough GI: denies: Nausea, Vomiting, Diarrhea Psychiatric: reports: Depressed, Anxiety. 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 : None HEENT: None Psych: Depression, Anxiety, Bipolar disorder, ADD/ADHD Musculoskeletal: Chronic back pain Derm: None - Past Surgical History Past Surgical History: No General: Cholecystectomy - Present Medications Home Medications: Ambulatory Orders Medication Instructions Recorded Confirmed Lisdexamfetamine Dimesylate 70 mg PO DAILY 12/07/19 12/10/22 [Vyvanse] buPROPion [Wellbutrin Sr] 450 mg PO DAILY 12/07/19 12/10/22 Lurasidone HCl [Latuda] 120 mg PO QPM 05/16/21 12/10/22 Venlafaxine [Effexor] 300 mg PO DAILY 05/16/21 12/10/22 Buspirone HCl 20 mg PO BID 12/10/22 12/10/22 LORazepam [Ativan] 0.5 mg PO ONCE PRN 12/10/22 12/10/22 - Allergies Allergies/Adverse Reactions: Allergies Allergy/AdvReac Type Severity Reaction Status Date / Time lamotrigine [From Lamictal] Allergy Anxiety Verified 01/10/23 09:58 quetiapine [From Seroquel] Allergy Unknown Verified 01/10/23 09:58 - Social History Does the pt smoke?: No Smoking Status: Never smoker Does the pt drink ETOH?: No Does the pt have substance abuse?: No - Immunizations Immunizations are current?: Yes - POLST Patient has POLST: No PD ED PE NORMAL - Vitals Vital signs reviewed: Yes - General General: Alert and oriented X 3, No acute distress (but does present as somewhat anxious. Pleasant and interacts well. ), Well developed/nourished - Cardiac Cardiac: RRR, No murmur - Respiratory Respiratory: Clear bilaterally - Derm Derm: Normal color, Warm and dry - Neuro Neuro: Alert and oriented X 3, No motor deficit, Normal speech Results - Vitals Vitals: Vital Signs - 24 hr 01/10/23 01/10/23 09:55 13:37 Temperature 36.5 C Heart Rate 106 H 99 Respiratory 16 17 Rate Blood Pressure 130/100 H 142/96 H O2 Saturation 97 100 Oxygen O2 Source Room air PD Medical Decision Making - ED course Complexity details: reviewed old records, re-evaluated patient (She is feeling much better at this time. No side effects from the infusion. She feels ready for discharge.), considered differential (The patient with long history of depression and has had improvement in her mood for a reasonable length of time up to a month or more with the ketamine infusions. She had been having increased suicidal ideation without plan and is here requesting ketamine infusion.), d/w family Departure - Departure Disposition: 01 Home, Self Care Clinical Impression: Depression Condition: Stable Instructions: ED Depression Follow-Up: Karri Knowles MD [Primary Care Provider] - Comments: Continue with usual medications and counseling. No driving today or power tools or other things where coordination is crucial. Stay well-hydrated. Return as needed.
[2023-01-10] MEDS ORDERED: KETAMINE (50MG/ML) 40 MG in SODIUM CHLORIDE 0.9% 100ML 100 ML IV STA (12:12)
[2023-01-10] MEDS ORDERED: SODIUM CHLORIDE 0.9% IV STA (12:24)
[2023-01-10] MEDS ORDERED: KETAMINE IV STA (12:24)
[2023-01-10 14:23] VITALS: BP 121/82
== END 2023-01-10 14:23 | disposition home or self-care (01) ==
LOC: ED 09:46
DX: F32.A Depression, unspecified (principal)
CPT/HCPCS: 96365; 99284; J3490

== ENCOUNTER 2023-02-23 17:38 | Emergency (ER) | payer OTHER ==
[2023-02-23] MEDS ORDERED: KETAMINE (50MG/ML) 40 MG in SODIUM CHLORIDE 0.9% 100ML 100 ML IV STA (17:50)
--- NOTE | 2023-02-23 17:51 | ED Physician Documentation ---
PD HPI MHE - Stated complaint Stated Complaint: SI - Chief complaint Chief Complaint: MHE - History obtained from History obtained from: Patient (32-year-old woman with chronic suicidal ideation, recent diagnosis of borderline personality disorder has developed intrusive suicidal thoughts without actual suicidality or plan and is here requesting a ketamine infusion. 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 HEENT: None Psych: Depression, Anxiety, Bipolar disorder, ADD/ADHD Musculoskeletal: Chronic back pain Derm: None - Past Surgical History Past Surgical History: No General: Cholecystectomy - Present Medications Home Medications: Ambulatory Orders Medication Instructions Recorded Confirmed Lisdexamfetamine Dimesylate 70 mg PO DAILY 12/07/19 12/10/22 [Vyvanse] buPROPion [Wellbutrin Sr] 450 mg PO DAILY 12/07/19 12/10/22 Lurasidone HCl [Latuda] 120 mg PO QPM 05/16/21 12/10/22 Venlafaxine [Effexor] 300 mg PO DAILY 05/16/21 12/10/22 Buspirone HCl 20 mg PO BID 12/10/22 12/10/22 LORazepam [Ativan] 0.5 mg PO ONCE PRN 12/10/22 12/10/22 - Allergies Allergies/Adverse Reactions: Allergies Allergy/AdvReac Type Severity Reaction Status Date / Time lamotrigine [From Lamictal] Allergy Anxiety Verified 02/23/23 17:46 quetiapine [From Seroquel] Allergy Unknown Verified 02/23/23 17:46 - Social History Does the pt smoke?: No Smoking Status: Never smoker Does the pt drink ETOH?: No Does the pt have substance abuse?: No - Immunizations Immunizations are current?: Yes - POLST Patient has POLST: No PD ED PE NORMAL - Vitals Vital signs reviewed: Yes - General General: Alert and oriented X 3, No acute distress - Neuro Neuro: Alert and oriented X 3, Normal speech - Psych Psych: Normal mood, Normal affect Results - Vitals Vitals: Vital Signs - 24 hr 02/23/23 02/23/23 02/23/23 17:43 18:46 19:36 Temperature 36.9 C Heart Rate 109 H 91 88 Respiratory 16 16 16 Rate Blood Pressure 155/106 H 133/91 H 122/83 H O2 Saturation 94 100 100 Oxygen O2 Source Room air PD Medical Decision Making - ED course ED course: 32-year-old woman with intrusive suicidal thoughts without plan he is here requesting ketamine infusion. After the infusion of 40 mg of IV ketamine she was feeling much better. Departure - Departure Disposition: Home, Self Care Clinical Impression: Depression Qualifiers: Depression Type: major depressive disorder Major depression recurrence: recurrent Active/Remission status: currently active Major depression episode severity: severe Psychotic features: without psychotic features Qualified Code(s): F33.2 - Major depressive disorder, recurrent severe without psychotic features Condition: Stable Record reviewed to determine appropriate education?: Yes Instructions: ED Depression Comments: Continue your current plan of care. Return if you worsen. Discharge Date/Time: 02/23/23 19:37
[2023-02-23 19:38] VITALS: BP 122/83
== END 2023-02-23 19:37 | disposition home or self-care (01) ==
LOC: ED 17:38
DX: F33.2 Major depressive disorder, recurrent severe without psychotic features (principal)
CPT/HCPCS: 96365; 99284

== ENCOUNTER 2023-05-16 12:01 | Emergency (ER) | payer OTHER ==
[2023-05-16] MEDS ORDERED: KETAMINE (50MG/ML) 40 MG in SODIUM CHLORIDE 0.9% 100ML 100 ML IV STA (14:46)
--- NOTE | 2023-05-16 15:08 | ED Physician Documentation ---
PD HPI MHE - Stated complaint Stated Complaint: SI - Chief complaint Chief Complaint: MHE - History obtained from History obtained from: Patient - History of Present Illness Pain level max: 0 Pain level now: 0 Contributing factors: No: Substance abuse - ETOH, Substance abuse - drugs - Additional information Additional information: Patient is a 32-year-old female with a longstanding history of depression. She has been managed well with ketamine infusions. Her psychiatrist has been unable to find a place for her to have this done other than the ER, therefore she comes in every few months for ketamine infusion. She states that she has had vague suicidal thoughts but no plan. She does feel safe at home. Does not currently feel suicidal. She is requesting a ketamine infusion. 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 HEENT: None Psych: Depression, Anxiety, Bipolar disorder, ADD/ADHD Musculoskeletal: Chronic back pain Derm: None - Past Surgical History Past Surgical History: No General: Cholecystectomy - Present Medications Home Medications: Ambulatory Orders Medication Instructions Recorded Confirmed Lisdexamfetamine Dimesylate 70 mg PO DAILY 12/07/19 12/10/22 [Vyvanse] buPROPion [Wellbutrin Sr] 450 mg PO DAILY 12/07/19 12/10/22 Lurasidone HCl [Latuda] 120 mg PO QPM 05/16/21 12/10/22 Venlafaxine [Effexor] 300 mg PO DAILY 05/16/21 12/10/22 Buspirone HCl 20 mg PO BID 12/10/22 12/10/22 LORazepam [Ativan] 0.5 mg PO ONCE PRN 12/10/22 12/10/22 - Allergies Allergies/Adverse Reactions: Allergies Allergy/AdvReac Type Severity Reaction Status Date / Time lamotrigine [From Lamictal] Allergy Anxiety Verified 05/16/23 12:12 quetiapine [From Seroquel] Allergy Unknown Verified 05/16/23 12:12 - Social History Does the pt smoke?: No Smoking Status: Never smoker Does the pt drink ETOH?: No Does the pt have substance abuse?: No - Immunizations Immunizations are current?: Yes - POLST Patient has POLST: No PD ED PE NORMAL - Vitals Vital signs reviewed: Yes - General General: Alert and oriented X 3, No acute distress, Well developed/nourished - HEENT HEENT: PERRL, Moist mucous membranes - Neck Neck: Supple, no meningeal sign - Cardiac Cardiac: RRR, Strong equal pulses - Respiratory Respiratory: No respiratory distress, Clear bilaterally - Abdomen Abdomen: Soft, Non tender, Non distended - Derm Derm: Warm and dry - Extremities Extremities: No edema - Neuro Neuro: Alert and oriented X 3 - Psych Psych: Normal mood, Normal affect Results - Vitals Vitals: Vital Signs - 24 hr 05/16/23 05/16/23 05/16/23 12:12 15:26 16:10 Temperature 36.5 C Heart Rate 90 83 91 Respiratory 16 20 20 Rate Blood Pressure 130/88 H 129/65 137/94 H O2 Saturation 99 100 100 Oxygen O2 Source Room air PD Medical Decision Making - ED course Complexity details: considered differential, d/w patient ED course: 32-year-old female with recurrent depression. Here for ketamine infusion. This is given. Patient contracts for safety. Not suicidal or homicidal currently. Patient counseled regarding signs and symptoms for which I believe and urgent re-evaluation would be necessary. Patient with good understanding of and agreement to plan and is comfortable going home at this time This document was made in part using voice recognition software. While efforts are made to proofread this document, sound alike and grammatical errors may occur. Departure - Departure Disposition: 01 Home, Self Care Clinical Impression: Depression Qualifiers: Depression Type: unspecified Qualified Code(s): F32.A - Depression, unspecified Condition: Stable Instructions: ED Depression Follow-Up: Karri Knowles MD [Primary Care Provider] - Comments: You were given an infusion of ketamine today. Please follow-up with your psychiatrist for further care. Please return if you worsen. Crisis Line and is available to talk to someone [email or web address] is also available to chat with someone online if you prefer. There are also many resources on this website and apps for your phone to help with your mental health You can also text the word START to [phone] to chat with someome via text. Forms: PCP List Discharge Date/Time: 05/16/23 16:15
[2023-05-16 15:29] VITALS: O2SAT 100
[2023-05-16 16:18] VITALS: BP 137/94
== END 2023-05-16 16:15 | disposition home or self-care (01) ==
LOC: ED 12:01
DX: F32.A Depression, unspecified (principal)
CPT/HCPCS: 96365; 99283

== ENCOUNTER 2023-07-20 16:55 | Emergency (ER) | payer OTHER ==
[2023-07-20] MEDS ORDERED: KETAMINE (50MG/ML) 40 MG in SODIUM CHLORIDE 0.9% 100ML 100 ML IV STA (17:19)
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
[2023-07-20] MEDS ORDERED: SODIUM CHLORIDE 0.9% IV ONE (17:29)
[2023-07-20] MEDS ORDERED: KETAMINE IV ONE (17:29)
[2023-07-20 18:59] VITALS: BP 160/84; O2SAT 96
== END 2023-07-20 18:57 | disposition home or self-care (01) ==
LOC: ED 16:55
DX: F33.1 Major depressive disorder, recurrent, moderate (principal)
CPT/HCPCS: 96365; 99283; 99284; J3490

== ENCOUNTER 2023-08-15 10:31 | Emergency (ER) | payer OTHER ==
--- NOTE | 2023-08-15 10:50 | ED Physician Documentation ---
PD HPI MHE - Stated complaint Stated Complaint: SI - Chief complaint Chief Complaint: MHE - History obtained from History obtained from: Patient - Additional information Additional information: 32-year-old female with history of borderline personality disorder, depression presents for depression. She states that when this happens she is referred to the emergency department by her psychiatrist and receives a ketamine infusion. She states that she has been feeling "down" recently and she was seen by her psychiatrist earlier this morning, who referred her to the emergency department for an infusion. Review of Systems Constitutional: denies: Fever, Chills GI: denies: Abdominal Pain, Nausea, Vomiting : denies: Dysuria, Frequency, Hesitancy Skin: denies: Rash, Lesions, Abrasion (s) Neurologic: denies: Generalized weakness, Focal weakness, Numbness Psychiatric: reports: Depressed. 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 HEENT: None Psych: Depression, Anxiety, Bipolar disorder, ADD/ADHD Musculoskeletal: Chronic back pain Derm: None - Past Surgical History Past Surgical History: No General: Cholecystectomy - Present Medications Home Medications: Ambulatory Orders Medication Instructions Recorded Confirmed Lisdexamfetamine Dimesylate 70 mg PO DAILY 12/07/19 08/15/23 [Vyvanse] buPROPion [Wellbutrin Sr] 450 mg PO DAILY 12/07/19 08/15/23 Lurasidone HCl [Latuda] 120 mg PO QPM 05/16/21 08/15/23 Venlafaxine [Effexor] 300 mg PO DAILY 05/16/21 08/15/23 Buspirone HCl 20 mg PO BID 12/10/22 08/15/23 LORazepam [Ativan] 0.5 mg PO ONCE PRN 12/10/22 08/15/23 - Allergies Allergies/Adverse Reactions: Allergies Allergy/AdvReac Type Severity Reaction Status Date / Time lamotrigine [From Lamictal] Allergy Anxiety Verified 05/16/23 12:12 quetiapine [From Seroquel] Allergy Unknown Verified 05/16/23 12:12 - Social History Does the pt smoke?: No Smoking Status: Never smoker Does the pt drink ETOH?: No Does the pt have substance abuse?: No - Immunizations Immunizations are current?: Yes - POLST Patient has POLST: No PD ED PE NORMAL - Vitals Vital signs reviewed: Yes - General General: Alert and oriented X 3, No acute distress, Well developed/nourished - HEENT HEENT: Atraumatic - Neck Neck: Supple, no meningeal sign - Cardiac Cardiac: RRR - Respiratory Respiratory: No respiratory distress, Clear bilaterally - Abdomen Abdomen: Soft, Non tender, Non distended - Derm Derm: Normal color, Warm and dry, No rash - Extremities Extremities: No deformity, No tenderness to palpate, Normal ROM s pain, No edema - Neuro Neuro: Alert and oriented X 3, 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 She is not suicidal, not homicidal, resting comfortably in ED bed. Patient has been seen numerous times over the last several months for same. I discussed the patient's case with her psychiatrist Dr. Mahin Downing, who confirmed patient's report and states that ketamine infusions help her depression, but due to insurance issues she has not been able to have this performed on an outpatient basis. Ketamine infusion was provided to patient, she reported improvement and she will follow-up with her therapist and her psychiatrist as previously scheduled. Departure - Departure Disposition: 01 Home, Self Care Clinical Impression: Depression Qualifiers: Depression Type: persistent depressive disorder Qualified Code(s): F34.1 - Dysthymic disorder Condition: Stable Instructions: ED Depression Comments: You were given an infusion of ketamine today. Please follow-up with your psychiatrist for further care. Please return if you worsen. Crisis Line and is available to talk to someone [email or web address] is also available to chat with someone online if you prefer. There are also many resources on this website and apps for your phone to help with your mental health You can also text the word START to [phone] to chat with someome via text. Forms: PCP List Discharge Date/Time: 08/15/23 13:33
[2023-08-15] MEDS ORDERED: KETAMINE 500 MG/10 ML VIAL IVP STA (11:02)
[2023-08-15] MEDS ORDERED: KETAMINE IV STA (11:29)
[2023-08-15] MEDS ORDERED: SODIUM CHLORIDE 0.9% IV STA (11:29)
[2023-08-15 12:17] VITALS: O2SAT 100
[2023-08-15 13:42] VITALS: BP 130/88
== END 2023-08-15 13:33 | disposition home or self-care (01) ==
LOC: ED 10:31
DX: F34.1 Dysthymic disorder (principal)
CPT/HCPCS: 96365; 99284

== ENCOUNTER 2023-10-07 19:28 | Emergency (ER) | payer OTHER ==
[2023-10-07] MEDS ORDERED: KETAMINE (50MG/ML) 40 MG in SODIUM CHLORIDE 0.9% 100ML 100 ML IV STA (19:41)
--- NOTE | 2023-10-07 19:49 | ED Physician Documentation ---
PD HPI MHE - Stated complaint Stated Complaint: SI - Chief complaint Chief Complaint: MHE - History obtained from History obtained from: Patient - Additional information Additional information: 32-year-old woman presents with "worse than normal" suicidal ideation. She has chronic suicidal ideation but at times gets worse and improved with ketamine infusion which is what she is here for today. She does have a plan but does feel safe going home. She has been treated numerous times in the emergency department with ketamine with good relief. 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 HEENT: None Psych: Depression, Anxiety, Bipolar disorder, ADD/ADHD Musculoskeletal: Chronic back pain Derm: None - Past Surgical History Past Surgical History: No General: Cholecystectomy - Present Medications Home Medications: Ambulatory Orders Medication Instructions Recorded Confirmed Lisdexamfetamine Dimesylate 70 mg PO DAILY 12/07/19 08/15/23 [Vyvanse] buPROPion [Wellbutrin Sr] 450 mg PO DAILY 12/07/19 08/15/23 Lurasidone HCl [Latuda] 120 mg PO QPM 05/16/21 08/15/23 Venlafaxine [Effexor] 300 mg PO DAILY 05/16/21 08/15/23 Buspirone HCl 20 mg PO BID 12/10/22 08/15/23 LORazepam [Ativan] 0.5 mg PO ONCE PRN 12/10/22 08/15/23 - Allergies Allergies/Adverse Reactions: Allergies Allergy/AdvReac Type Severity Reaction Status Date / Time lamotrigine [From Lamictal] Allergy Anxiety Verified 10/07/23 19:32 quetiapine [From Seroquel] Allergy Unknown Verified 10/07/23 19:32 - Social History Does the pt smoke?: No Smoking Status: Never smoker Does the pt drink ETOH?: No Does the pt have substance abuse?: No - Immunizations Immunizations are current?: Yes - POLST Patient has POLST: No PD ED PE NORMAL - Vitals Vital signs reviewed: Yes - General General: Alert and oriented X 3, No acute distress - HEENT HEENT: PERRL, EOMI - Neck Neck: Supple, no meningeal sign, No bony TTP - Neuro Neuro: Alert and oriented X 3 Eye Opening: Spontaneous Motor: Obeys Commands Verbal: Oriented GCS Score: 15 - Psych Psych: Normal mood, Normal affect Results - Vitals Vitals: Vital Signs - 24 hr 10/07/23 10/07/23 19:32 19:38 Temperature 36.8 C 36.8 C Heart Rate 100 99 Respiratory 16 16 Rate Blood Pressure 150/88 H 150/88 H O2 Saturation 99 99 Oxygen O2 Source Room air PD Medical Decision Making - ED course ED course: As per usual received infusion of 40 mg of ketamine and felt much better. Feeling safe going home. Declined further needs. Departure - Departure Disposition: , Self Care Clinical Impression: Depression Qualifiers: Depression Type: major depressive disorder Major depression recurrence: recurrent Active/Remission status: currently active Major depression episode severity: severe Psychotic features: without psychotic features Qualified Code(s): F33.2 - Major depressive disorder, recurrent severe without psychotic features Condition: Good Record reviewed to determine appropriate education?: Yes Instructions: ED Depression Comments: Return anytime if you worsen or new issues arise. Follow-up with your psychiatrist. Forms: PCP List
[2023-10-07] MEDS ORDERED: KETAMINE 500 MG/10 ML VIAL ONE (19:54)
[2023-10-07 21:18] VITALS: BP 138/94; O2SAT 100
== END 2023-10-07 21:16 | disposition home or self-care (01) ==
LOC: ED 19:28
DX: F33.2 Major depressive disorder, recurrent severe without psychotic features (principal)
CPT/HCPCS: 96365; 99284

== ENCOUNTER 2024-05-27 17:45 | Emergency (ER) | payer OTHER ==
[2024-05-27] MEDS ORDERED: KETAMINE 500 MG/10 ML VIAL ONE (18:32)
[2024-05-27] MEDS: KETAMINE (50MG/ML) 40 MG in SODIUM CHLORIDE 0.9% 100ML 100 ML IV STA (18:40)
--- NOTE | 2024-05-27 18:50 | ED Physician Documentation ---
PD HPI MHE - Stated complaint Stated Complaint: MHE - Chief complaint Chief Complaint: MHE - History obtained from History obtained from: Patient - History of Present Illness Pain level max: 0 Pain level now: 0 - Additional information Additional information: Patient is a 33-year-old female who presents to the emergency department stating that she has a longstanding history of depression. She has had increasing depression over the past several days. She states that ketamine has helped her in the past. Last infusion was approximately 7 months ago. She states that she feels like if she has a ketamine infusion this will help with her depression and can follow-up with her doctor. She does not have a plan. Lives at home with he r . 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 : None HEENT: None Psych: Depression, Anxiety, Bipolar disorder, ADD/ADHD Musculoskeletal: Chronic back pain Derm: None - Past Surgical History Past Surgical History: No General: Cholecystectomy - Present Medications Home Medications: Ambulatory Orders Medication Instructions Recorded Confirmed Lisdexamfetamine Dimesylate 70 mg PO DAILY 12/07/19 08/15/23 [Vyvanse] buPROPion [Wellbutrin Sr] 450 mg PO DAILY 12/07/19 08/15/23 Lurasidone HCl [Latuda] 120 mg PO QPM 05/16/21 08/15/23 Venlafaxine [Effexor] 300 mg PO DAILY 05/16/21 08/15/23 Buspirone HCl 20 mg PO BID 12/10/22 08/15/23 LORazepam [Ativan] 0.5 mg PO ONCE PRN 12/10/22 08/15/23 - Allergies Allergies/Adverse Reactions: Allergies Allergy/AdvReac Type Severity Reaction Status Date / Time lamotrigine [From Lamictal] Allergy Anxiety Verified 05/27/24 17:50 quetiapine [From Seroquel] Allergy Unknown Verified 05/27/24 17:50 - Social History Does the pt smoke?: No Smoking Status: Never smoker Does the pt drink ETOH?: No Does the pt have substance abuse?: No - Immunizations Immunizations are current?: Yes - POLST Patient has POLST: No PD ED PE NORMAL - Vitals Vital signs reviewed: Yes - General General: Alert and oriented X 3, No acute distress - HEENT HEENT: PERRL, Moist mucous membranes - Neck Neck: Supple, no meningeal sign - Cardiac Cardiac: RRR, Strong equal pulses - Respiratory Respiratory: No respiratory distress, Clear bilaterally - Abdomen Abdomen: Soft, Non tender, Non distended - Derm Derm: Warm and dry - Extremities Extremities: No edema, No calf tenderness / cord - Neuro Neuro: Alert and oriented X 3 - Psych Psych: Normal mood, Normal affect Results - Vitals Vitals: Vital Signs - 24 hr 05/27/24 17:51 Temperature 36.5 C Heart Rate 92 Respiratory 16 Rate Blood Pressure 126/91 H O2 Saturation 100 Oxygen O2 Source Room air PD Medical Decision Making - ED course Complexity details: re-evaluated patient, considered differential, d/w patient ED course: Patient with vague suicidal ideation and depression. She does not have a plan. She is able to contract for safety. She lives with her who can help keep her safe as well. She does not feel actively suicidal currently but did request a ketamine infusion which has helped her in the past. This was given. She feels better and requesting go home at this time. She will follow-up with her psychiatrist for further care. She will return if she worsens. Patient counseled regarding signs and symptoms for which I believe and urgent re- evaluation would be necessary. Patient with good understanding of and agreement to plan and is comfortable going home at this time This document was made in part using voice recognition software. While efforts are made to proofread this document, sound alike and grammatical errors may occur. Departure - Departure Disposition: Home, Self Care Clinical Impression: Depression Qualifiers: Depression Type: unspecified Qualified Code(s): F32.A - Depression, unspecified Condition: Good Instructions: ED Depression Follow-Up: your,doctor this week [Other] Comments: You were given a dose of ketamine here today. Please follow-up with your psychiatrist for further care. Please return if you worsen. If you are having any thoughts that you do not want to live, thoughts of hurting yourself, or thoughts of hurting anyone else, please call 911, the crisis line at [phone], or go to your nearest emergency department. Crisis Line and is available to talk to someone [email or web address] is also available to chat with someone online if you prefer. There are also many resources on this website and apps for your phone to help with your mental health You can also text the word START to [phone] to chat with someome via text. Forms: PCP List
[2024-05-27 19:45] VITALS: BP 122/68; O2SAT 98
== END 2024-05-27 19:44 | disposition home or self-care (01) ==
LOC: ED 17:45
DX: F32.A Depression, unspecified (principal); R45.851 Suicidal ideations
CPT/HCPCS: 96365; 99283